=== PATIENT | female | born 1955 | race Two or more races ===

== ENCOUNTER 2024-03-05 21:32 | Inpatient (IN) | payer OTHER, SELFPAY ==
[2024-03-05 21:45] VITALS: BP 163/84; PULSE 84; RESP 22; TEMP 36.6; O2SAT 97
[2024-03-05 22:44] LABS: Glucose, Whole Blood 148 mg/dL (60-115)
[2024-03-05 23:07] VITALS: BMI 36.9
[2024-03-05] MEDS: QUEtiapine Fumarate 100 MG TABLET 300 MG PO (23:43)
[2024-03-05] MEDS: traZODone HCL 50 MG TABLET PO (23:43)
[2024-03-05] MEDS: risperiDONE 1 MG TABLET PO (23:44)
--- NOTE | 2024-03-06 01:20 | PC.ADMIT ---
[id number]- pt is hospital to hospital transfer from [facility]. on arrival pt signed a c-v document. to note, intake information is assisted by housekeeping laundry worker Leonel Varela. pt states that she lives alone in an apartment and has been afraid. she states that she hears voices that tell her that they are going to hurt her. she endorses visual hallucinations of seeing things of the past. pt states that she sought medical attention at [facility] because she was frightened. she denies si and hi. however, she talks about having recent bad thoughts and she did not know how to kill herself . pt has a disheveled appearance and affect is flat. she tends to have a blank gaze. pt is dressed in hospital paper garments. skin surfaces inspected and are intact. slight pedal and leg edema appreciated. pt has yellow metallic ring on right 4 th finger which could not be removed. please note pt has recent dx 0f covid-19 and for the past 24 hours has c/o of cough,sore throat and runny nose. resp effort is regular and unlabored. breath sounds clear to auscultation. sao2 98%. poc checked 148. hemodynamically stable. pt states hx of constipation. last bm yesterday and was small. abdomen obese and soft. pt has a regular diet and no difficulty eating or swallowing. she denies any urological issues. arabella marc coordinator of rehabilitation services provider notified of admission. pt placed on contact precautions.
[2024-03-06 08:00] VITALS: BP 135/71; PULSE 85; RESP 18; TEMP 36.3; O2SAT 97
[2024-03-06 08:16] LABS: Estimated Average Glucose 146 mg/dL; Hemoglobin A1c % 6.7 % (<6.0)
[2024-03-06 08:32] LABS: Alanine Aminotransferase 28 U/L (0-31); Albumin Level 3.7 g/dL (3.5-5.0); Alkaline Phosphatase 73 U/L (39-117); Anion Gap 10 (12-20); Aspartate Amino Transferase 23 U/L (5-31); Bilirubin Total 0.3 mg/dL (0.0-1.0); Blood Urea Nitrogen 14 mg/dL (9-16); Calcium 9.2 mg/dL (8.4-10.2); Carbon Dioxide 29 mmol/L (22-29); Chloride 108 mmol/L (96-108); Cholesterol 128 mg/dL (<200); Creatinine Clr Calc Pharmacy 67.7; Estimated Glomerular Filt Rate > 60; Glucose Fasting 123 mg/dL (60-99); HDL Cholesterol 36 mg/dL (>40); LDL Cholesterol Calculated 72 mg/dL (<100); Magnesium 1.8 mg/dL (1.6-2.6); Potassium 4.2 mmol/L (3.3-5.1); Sodium 143 mmol/L (135-145); Triglycerides 102 mg/dL (<150)
[2024-03-06 08:57] LABS: Folate 9.7 ng/mL (> or = 4.0); Vitamin B12 365 pg/mL (200-900)
--- NOTE | 2024-03-06 09:23 | P.CONHOSP_ITS ---
History of Present Illness Data of Consult Service Date: 03/06/24 Requesting physician: Segundo Fairbanks Primary Care Provider: Unknown Physician HPI Reason for consult: medical H&P 68-year-old female with history of bipolar 1, anxiety, PTSD, hypothyroidism, hyperlipidemia, GERD, [id number] type 2 diabetes, hypertension, asthma, overactive bladder, who is severely obese with BMI > 36 admitted to Psychiatry with consult placed hospitalist service for medical H and P. The patient was admitted from [facility]. While in the ED, hematology studies revealed a mild normocytic anemia with H/H 11.5/35.0%. She has CKD stage 3 with creatinine 1.1, lytes normal. Glucose 111. Ethyl alcohol level undetectable. TSH 1.82. She was found to be positive for COVID-19 on 03/05. She reports she developed intermittently productive cough with white sputum but denies any shortness a breath, wheezing, or chest pain. No fevers or chills. No congestion or sore throat. EKG showed sinus arrhythmia with rate 78, no acute ST/T-wave abnormality. She has not a smoker, denies alcohol use or illicit drug use. Review of Systems 2 Review of Systems: General: No fevers, malaise, unintentional weight loss HEENT: No blurred vision, diplopia. No sore throat, nasal congestion, rhinorrhea, sinus pain, ear pain Cardiovascular: No chest pain, palpitations, or leg edema Respiratory: +cough. No shortness of breath, wheezing GI: No abdominal pain, nausea, vomiting, diarrhea, constipation, melena, hematochezia : No dysuria, hematuria, increased urinary frequency, decreased urinary output MSK: No myalgia, back pain Neuro: No headaches, weakness, paresthesias Skin: No rashes or lesions [facility] Medical History Severe obesity Overactive bladder Asthma Hypertension GERD (gastroesophageal reflux disease) Type 2 diabetes mellitus Hypothyroidism Anxiety Bipolar 1 disorder Social History Household Members: None Housing: Apartment Do you presently have visiting nurse or other home services: Yes (family member works 24 hr/wk as [employer]) Patient Tobacco Use Status: Never used Tobacco e-Cigarette/Vaping Use: Never Used Use of substances other than those prescribed or required for medical reasons: No Have you been hit, kicked, punched, or otherwise hurt by someone within the past year? If so, by whom?: No Do you feel safe in your current relationship?: No Current Relationship Is there a partner from a previous relationship who is making you feel unsafe now?: No Are you made to feel afraid or neglected: No Advance Directives: No Advance Directives Information Provided: No Recently lost weight without trying: No How much weight loss: Not applicable Eating poorly because of decreased appetite: No Nutrition screen score: 0 Nutrition Risks: No Nutritional Risk Patient : No : No Poor oral hygiene: No Meds Allergies Allergy/AdvReac Type Severity Reaction Status Date / Time Penicillins Allergy Unknown Unknown Verified 03/05/24 22:11 Active Medications: Current Medications Acetaminophen (Acetaminophen 325 Mg Tablet) 650 mg PO Q6H PRN PRN Reason: Headache/Pain Mild Scale (1-3) Al Hydroxide/Mg Hydroxide (Magnesium Hydrox/Alum Hydrox 30 Ml Oral.Susp) 30 ml PO Q6H PRN PRN Reason: Heartburn/Nausea Hydroxyzine HCl (Hydroxyzine Hcl 25 Mg Tablet) 25 mg PO Q6H PRN PRN Reason: Anxiety Magnesium Hydroxide (Milk Of Magnesia 30 Ml Oral.Susp) 30 ml PO DAILY PRN PRN Reason: Constipation Trazodone HCl (Trazodone Hcl 50 Mg Tablet) 50 mg PO BEDTIME MRX1 PRN PRN Reason: Insomnia Last Admin: 03/05/24 23:43 Dose: 50 mg Home Medications ?Medication ?Instructions ?Recorded ?Confirmed ?Last Taken ?Type acetaminophen 650 mg 650 mg PO Q6H PRN pain 03/06/24 03/06/24 Unknown History tablet,extended release albuterol sulfate 90 mcg/actuation 2 puff inhalation QID PRN wheezing 03/06/24 03/06/24 Unknown History aerosol inhaler aspirin 325 mg tablet,delayed 325 mg PO BID 03/06/24 03/06/24 Unknown History release atorvastatin 80 mg tablet 80 mg PO DAILY 03/06/24 03/06/24 Unknown History bupropion HCl 200 mg tablet,12 hr 200 mg PO QAM 03/06/24 03/06/24 Unknown History sustained-release fluoxetine 20 mg capsule 20 mg PO DAILY 03/06/24 03/06/24 Unknown History furosemide 20 mg tablet 20 mg PO DAILY 03/06/24 03/06/24 Unknown History levothyroxine 88 mcg tablet 88 mcg PO DAILY 03/06/24 03/06/24 Unknown History lidocaine 5 % topical patch topical 1XD 03/06/24 Unknown History lisinopril 5 mg tablet 5 mg PO DAILY 03/06/24 03/06/24 Unknown History metformin 750 mg tablet,extended 1,500 mg PO DAILY 03/06/24 03/06/24 Unknown History release 24 hr mirabegron 50 mg tablet,extended 50 mg PO DAILY 03/06/24 03/06/24 Unknown History release 24 hr (Myrbetriq) pantoprazole 40 mg tablet,delayed 40 mg PO DAILY 03/06/24 03/06/24 Unknown History release polyethylene glycol 3350 17 17 g PO DAILY PRN constipation 03/06/24 03/06/24 Unknown History gram/dose oral powder quetiapine 300 mg tablet 300 mg PO BEDTIME 03/06/24 03/06/24 Unknown History risperidone 2 mg tablet 2 mg PO BEDTIME 03/06/24 03/06/24 Unknown History Physical Exam 2 Vital Signs and Narrative: Vital Signs: Last Vital Signs Temp 97.9 F 03/05/24 21:45 Pulse 84 03/05/24 21:45 Resp 22 H 03/05/24 21:45 BP 163/84 H 03/05/24 21:45 Pulse Ox 97 03/05/24 21:45 O2 Del Method Room Air 03/05/24 21:45 BMI result Body Mass Index 36.9 Constitutional - Awake and Alert, No apparent distress Eyes - PERRLA, EOMI Cardiovascular - S1S2, RRR, No edema Respiratory - Normal lung expansion, Normal respiratory effort, No respiratory distress, CTA bilaterally Gastrointestinal - NT / ND; +BS; No rebound or guarding - No CVA tenderness Extremities - no calf tenderness bilaterally, no swelling Musculoskeletal - Normal inspection, normal ROM Skin - Warm/Dry Neurological - Alert & oriented x3, CN II-XII in tact, 5/5 strength BUE and BLE Psychological - Appropriate affect Results Labs 03/06/24 07:43 Labs: Laboratory Results - last 24 hr 03/05/24 03/06/24 22:27 07:43 Anion Gap 10 L Estim Creat Clear Calc 67.7 Estimated GFR > 60 POC Glucose 148 H Fasting Glucose 123 H Estimat Average Glucose 146 Hemoglobin A1c % 6.7 H Calcium 9.2 Magnesium 1.8 Total Bilirubin 0.3 AST 23 ALT 28 Alkaline Phosphatase 73 Total Protein 6.0 L Albumin 3.7 Triglycerides 102 Cholesterol 128 LDL Cholesterol, Calc 72 HDL Cholesterol 36 L Vitamin B12 365 Folate 9.7 TSH 2.10 Assessment and Plan (1) COVID-19: Status: Acute (2) Routine medical exam: Status: Acute Plan 68-year-old female with history of bipolar 1, anxiety, PTSD, hypothyroidism, hyperlipidemia, GERD, [id number] type 2 diabetes, hypertension, asthma, overactive bladder, who is severely obese with BMI > 36 admitted to Psychiatry with consult placed hospitalist service for medical H and P. #Mood disorder -plan per psychiatry #COVID-19 -mild symptoms, lungs CTA. dx 03/05 sx onset 03/04 -adhere to hospital isolation guidelines -symptomatic management #Mild intermittent asthma -no acute exacerbation -albuterol prn # hypothyroidism -TSH 1.82, continue levothyroxine 88 mcg daily # [id number] type 2 diabetes -controlled with hemoglobin A1c 6.7% -recommend checking POC glucose daily -continue metformin # hypertension -blood pressure is controlled -continue Lasix 20 mg, lisinopril 5 mg # hyperlipidemia -continue statin # overactive bladder -continue mirabegron # GERD -continue PPI # severe obesity with BMI > 36 -weight loss efforts # mild normocytic anemia-likely chronic -H/H above transfusion threshold Thank you for allowing me to participate in this consult. Signing off at this time. Please do not hesitate to call for further questions.
--- NOTE | 2024-03-06 09:38 | HO.PSYADMNOT ---
HPI Date of Service: 03/06/24 Chief Complaint: Bipolar, anxiety, PTSD Sources of Information: patient interviewed, chart reviewed and crisis/core team assessment reviewed HPI Subjective Notes: Cohn Warning and Conditional Voluntary Narrative: Ms. Pedro is a 68 year-old woman with hx of schizoaffective disorder who was assessed by [facility] at request of her psychiatrist, Dr. Natty Marte due to paranoid delusions that devil was trying to harm her and she had instead a heart made of water, she also reported she thought she was with twins. In the ED, [facility], cbc mostly unremarkable. CMP without electrolyte abnormalities. BUN 19, Cr 1.1, creatinine clearance 51. TSH 1.82, Utox negative. she was positive for covid. On the unit, pt presents with significant delayed in response and poor attention. She reports she was concern about her heart, does not know who is trying to harm her. She denies SI/HI. She reports she hears voices but can't tell this singer songwriter what they say. She states I think I heard them today. She reports my psychiatrist told me to come here. In terms of covid symptoms, pt without SOB, afebrile. Past Psychiatric History: OP: [facility] Dr. Natty Marte Past medication trials: wellbutrin, risperidone, seroquel, prozac Medical Evaluation Reviewed: Yes [facility] Medical History Severe obesity Overactive bladder Asthma Hypertension GERD (gastroesophageal reflux disease) Type 2 diabetes mellitus Hypothyroidism Anxiety Bipolar 1 disorder Family History: unknown Social History: pt lives alone, housing stable. her children are in the area. Substance History: denies Trauma History: not disclosed Diagnostics Vital Signs (24Hr): Vital Signs - 24 hr 03/05/24 21:45 Temperature 97.9 F Pulse Rate 84 Respiratory Rate 22 H Blood Pressure 163/84 H Pulse Oximetry 97 Oxygen Delivery Method Room Air BMI result Body Mass Index 36.9 Labs 03/06/24 07:43 Labs: Laboratory Results - last 48 hr 03/05/24 03/06/24 22:27 07:43 Sodium 143 Potassium 4.2 Chloride 108 Carbon Dioxide 29 Anion Gap 10 L BUN 14 Creatinine 0.92 Estim Creat Clear Calc 67.7 Estimated GFR > 60 POC Glucose 148 H Fasting Glucose 123 H Estimat Average Glucose 146 Hemoglobin A1c % 6.7 H Calcium 9.2 Magnesium 1.8 Total Bilirubin 0.3 AST 23 ALT 28 Alkaline Phosphatase 73 Total Protein 6.0 L Albumin 3.7 Triglycerides 102 Cholesterol 128 LDL Cholesterol, Calc 72 HDL Cholesterol 36 L Vitamin B12 365 Folate 9.7 TSH 2.10 Meds/Allergies Meds Home Medications ?Medication ?Instructions ?Recorded ?Confirmed ?Type acetaminophen 650 mg 650 mg PO Q6H PRN pain 03/06/24 03/06/24 History tablet,extended release albuterol sulfate 90 mcg/actuation 2 puff inhalation QID PRN wheezing 03/06/24 03/06/24 History aerosol inhaler aspirin 325 mg tablet,delayed 325 mg PO BID 03/06/24 03/06/24 History release atorvastatin 80 mg tablet 80 mg PO DAILY 03/06/24 03/06/24 History bupropion HCl 200 mg tablet,12 hr 200 mg PO QAM 03/06/24 03/06/24 History sustained-release fluoxetine 20 mg capsule 20 mg PO DAILY 03/06/24 03/06/24 History furosemide 20 mg tablet 20 mg PO DAILY 03/06/24 03/06/24 History levothyroxine 88 mcg tablet 88 mcg PO DAILY 03/06/24 03/06/24 History lidocaine 5 % topical patch topical 1XD 03/06/24 History lisinopril 5 mg tablet 5 mg PO DAILY 03/06/24 03/06/24 History metformin 750 mg tablet,extended 1,500 mg PO DAILY 03/06/24 03/06/24 History release 24 hr mirabegron 50 mg tablet,extended 50 mg PO DAILY 03/06/24 03/06/24 History release 24 hr (Myrbetriq) pantoprazole 40 mg tablet,delayed 40 mg PO DAILY 03/06/24 03/06/24 History release polyethylene glycol 3350 17 17 g PO DAILY PRN constipation 03/06/24 03/06/24 History gram/dose oral powder quetiapine 300 mg tablet 300 mg PO BEDTIME 03/06/24 03/06/24 History risperidone 2 mg tablet 2 mg PO BEDTIME 03/06/24 03/06/24 History Allergies Allergies Allergy/AdvReac Type Severity Reaction Status Date / Time Penicillins Allergy Unknown Unknown Verified 03/05/24 22:11 Mental Status Exam Mental Status Exam Narrative: Appearance: wearing hospital gown, laying in bed, staring at ceiling, in NAD Behavior: minimally engaging due to underlying psychosis Psychomotor: some retardation noted Speech: mostly clear, delayed responses, minimally spontaneous TP: some derailment TC: feeling tired Mood: okay' Affect: constricted, mask-like facial expression SI: denies HI: denies VH/AH: internally preoccupied Delusions: paranoid delusions Insight/judgment: impaired x 2. memory/cog: alert, oriented x 3. not formally tested. Assessment & Plan Assessment & Plan (1) Schizoaffective disorder: Status: Acute Code(s): F25.9 - Schizoaffective disorder, unspecified Plan Ms. Pedro is a 68 year-old woman with hx of schizoaffective disorder who was assessed by [facility] at request of her outpatient psychiatrist, Dr. Natty Marte due to pt presenting as increasingly more paranoid and disorganized. She is covid positive. currently on isolation with no significant symptoms- no SOB, o2sat>96 on RA, afebrile. We discussed risks, benefits and alternative treatment options, will hold on antidepressants as will worsen psychosis, increase risperidone to 1mg po daily and 2mg po qhs. will add some ativan for catatonic-like symptoms including blank stare, mutism (or minimal spontaneous speech with significant delayed in responses). PLAN 1. admit to s1, cv, 15 minutes checks 2. increase risperidone 1mg po daily and 2mg po qhs 3. obtain collateral information 4. aftercare planning. Patient educated on: diagnosis and medication risk/benefits Reason for continued inpatient stay Substantial Risk for: inability to function Statement Statement: I have reviewed the history and physical and performed a pertinent examination on my patient. No changes have occurred unless specified. If the History and Physical was not performed prior to admission, the Hospitalist's service will be consulted for completing the admission physical. Time Spent With Patient Time: Total time managing care of this patient today ____ minutes.
[2024-03-06 10:18] VITALS: BP 135/71
[2024-03-06] MEDS: Omeprazole 20 MG CAPSULE.DR PO (10:18)
[2024-03-06] MEDS: FLUoxetine HCl 20 MG CAPSULE PO (10:18)
[2024-03-06] MEDS: Furosemide 20 MG TABLET PO (10:18)
[2024-03-06] MEDS: Levothyroxine Sodium 88 MCG TABLET PO (10:19)
[2024-03-06] MEDS: Atorvastatin Calcium 80 MG TABLET PO (10:19)
[2024-03-06 10:20] VITALS: BP 135/71
[2024-03-06] MEDS: lisinopriL 5 MG TABLET PO (10:20)
[2024-03-06] MEDS: Aspirin Enteric Coated 325 MG TABLET.DR PO ×2 (11:35→20:47)
[2024-03-06] MEDS: risperiDONE 1 MG TABLET PO (14:19)
[2024-03-06] MEDS: LORazepam 1 MG TABLET PO (14:19)
[2024-03-06 20:00] VITALS: BP 114/68; PULSE 76; RESP 16; TEMP 36.6; O2SAT 98
[2024-03-06] MEDS: risperiDONE 2 MG TABLET PO (20:46)
[2024-03-06] MEDS: Mirabegron 50 MG TAB.ER.24H PO (20:46)
[2024-03-06] MEDS: QUEtiapine Fumarate 300 MG TABLET PO (20:47)
[2024-03-06] MEDS: hydrOXYzine HCL 25 MG TABLET PO (20:47)
[2024-03-06] MEDS: traZODone HCL 50 MG TABLET PO (20:48)
[2024-03-07] MEDS: Levothyroxine Sodium 88 MCG TABLET PO (06:10)
[2024-03-07] MEDS: Omeprazole 20 MG CAPSULE.DR PO (06:10)
[2024-03-07 08:00] VITALS: BP 152/91; PULSE 93; RESP 18; TEMP 36.5; O2SAT 96
[2024-03-07] MEDS: guaiFENesin 200 MG/10 ML 10 ML LIQUID PO (08:29)
[2024-03-07] MEDS: risperiDONE 1 MG TABLET PO (08:30)
[2024-03-07] MEDS: Aspirin Enteric Coated 325 MG TABLET.DR PO ×2 (08:30→21:39)
[2024-03-07] MEDS: Furosemide 20 MG TABLET PO (08:30)
[2024-03-07] MEDS: lisinopriL 5 MG TABLET PO (08:30)
[2024-03-07] MEDS: Atorvastatin Calcium 80 MG TABLET PO (08:30)
--- NOTE | 2024-03-07 14:40 | P.PNPSI_ITS ---
Subjective Subjective Date of Service: 03/07/24 Reason For Visit: Bipolar, anxiety, PTSD Subjective Notes: Conditional Voluntary Interim History: Pt slept through the night. She did seem to have slightly less delay in response but still poor attention due to being internally preoccupied. She reports hearing voices, but states she does not remember what they say. She does report that she was feeling unsafe at home. She states she is not sure of she is . minimally verbal. denies sob, afebrile. She does report roof of mouth hurts- this typewriter aligner check no redness or swelling, but pt states she may have had hot food. No SI/HI. Review of Systems Review of Systems General: No fevers, malaise, unintentional weight loss HEENT: No blurred vision, diplopia. No sore throat, nasal congestion, rhinorrhea, sinus pain, ear pain Cardiovascular: No chest pain, palpitations, or leg edema Respiratory: +cough. No shortness of breath, wheezing GI: No abdominal pain, nausea, vomiting, diarrhea, constipation, melena, hematochezia : No dysuria, hematuria, increased urinary frequency, decreased urinary output MSK: No myalgia, back pain Neuro: No headaches, weakness, paresthesias Skin: No rashes or lesions Mental Status Exam Mental Status Exam Narrative: Appearance: wearing hospital gown, laying in bed, staring at ceiling, in NAD Behavior: minimally engaging due to underlying psychosis Psychomotor: some retardation noted Speech: mostly clear, delayed responses, minimally spontaneous TP: some derailment TC: feeling tired Mood: okay' Affect: constricted, mask-like facial expression SI: denies HI: denies VH/AH: internally preoccupied Delusions: paranoid delusions Insight/judgment: impaired x 2. memory/cog: alert, oriented x 3. not formally tested. Diagnostics Vital Signs (24Hr): Vital Signs - 24 hr 03/06/24 20:00 03/07/24 08:00 Temperature 98 F 97.7 F Pulse Rate 76 93 Respiratory Rate 16 18 Blood Pressure 114/68 152/91 H Pulse Oximetry 98 96 Oxygen Delivery Method Room Air Room Air BMI result Body Mass Index 36.9 Labs 03/06/24 07:43 Labs: Laboratory Results - last 48 hr 03/05/24 03/06/24 22:27 07:43 Sodium 143 Potassium 4.2 Chloride 108 Carbon Dioxide 29 Anion Gap 10 L BUN 14 Creatinine 0.92 Estim Creat Clear Calc 67.7 Estimated GFR > 60 POC Glucose 148 H Fasting Glucose 123 H Estimat Average Glucose 146 Hemoglobin A1c % 6.7 H Calcium 9.2 Magnesium 1.8 Total Bilirubin 0.3 AST 23 ALT 28 Alkaline Phosphatase 73 Total Protein 6.0 L Albumin 3.7 Triglycerides 102 Cholesterol 128 LDL Cholesterol, Calc 72 HDL Cholesterol 36 L Vitamin B12 365 Folate 9.7 TSH 2.10 Medications Medications Current Medications Acetaminophen (Acetaminophen 325 Mg Tablet) 650 mg PO Q6H PRN PRN Reason: Headache/Pain Mild Scale (1-3) Al Hydroxide/Mg Hydroxide (Magnesium Hydrox/Alum Hydrox 30 Ml Oral.Susp) 30 ml PO Q6H PRN PRN Reason: Heartburn/Nausea Albuterol Sulfate (Albuterol Sulfate 90 Mcg 8 Gm Inhaler) 2 puff INHALE QID PRN PRN Reason: wheezing Aspirin (Aspirin Enteric Coated 325 Mg Tablet.) 325 mg PO BID [facility] Last Admin: 03/07/24 08:30 Dose: 325 mg Atorvastatin Calcium (Atorvastatin Calcium 80 Mg Tablet) 80 mg PO DAILY [facility] Last Admin: 03/07/24 08:30 Dose: 80 mg Furosemide (Furosemide 20 Mg Tablet) 20 mg PO DAILY [facility]; Protocol Last Admin: 03/07/24 08:30 Dose: 20 mg Guaifenesin (Guaifenesin 200 Mg/10 Ml 10 Ml Liquid) 10 ml PO Q4H PRN PRN Reason: Cough Last Admin: 03/07/24 08:29 Dose: 10 ml Hydroxyzine HCl (Hydroxyzine Hcl 25 Mg Tablet) 25 mg PO Q6H PRN PRN Reason: Anxiety Last Admin: 03/06/24 20:47 Dose: 25 mg Levothyroxine Sodium (Levothyroxine Sodium 88 Mcg Tablet) 88 mcg PO DAILY@0600 [facility] Last Admin: 03/07/24 06:10 Dose: 88 mcg Lisinopril (Lisinopril 5 Mg Tablet) 5 mg PO DAILY [facility]; Protocol Last Admin: 03/07/24 08:30 Dose: 5 mg Magnesium Hydroxide (Milk Of Magnesia 30 Ml Oral.Susp) 30 ml PO DAILY PRN PRN Reason: Constipation Mirabegron (Mirabegron 50 Mg Tab.Er.24h) 50 mg PO BEDTIME [facility] Last Admin: 03/06/24 20:46 Dose: 50 mg Omeprazole (Omeprazole 20 Mg Capsule.Dr) 20 mg PO DAILY@0630 [facility] Last Admin: 03/07/24 06:10 Dose: 20 mg Quetiapine Fumarate (Quetiapine Fumarate 200 Mg Tablet) 200 mg PO BEDTIME DANIEL Risperidone (Risperidone 2 Mg Tablet) 2 mg PO BEDTIME [facility] Last Admin: 03/06/24 20:46 Dose: 2 mg Risperidone (Risperidone 1 Mg Tablet) 1 mg PO DAILY [facility] Last Admin: 03/07/24 08:30 Dose: 1 mg Trazodone HCl (Trazodone Hcl 50 Mg Tablet) 50 mg PO BEDTIME MRX1 PRN PRN Reason: Insomnia Last Admin: 03/06/24 20:48 Dose: 50 mg Allergies Allergies Allergy/AdvReac Type Severity Reaction Status Date / Time Penicillins Allergy Unknown Unknown Verified 03/05/24 22:11 Assessment & Plan Assessment & Plan (1) Schizoaffective disorder: Status: Acute Code(s): F25.9 - Schizoaffective disorder, unspecified Plan Ms. Pedro is a 68 year-old woman with hx of schizoaffective disorder who was assessed by [facility] at request of her outpatient psychiatrist, Dr. Natty Marte due to pt presenting as increasingly more paranoid and disorganized. She is covid positive. currently on isolation with no significant symptoms- no SOB, o2sat>96 on RA, afebrile. We discussed risks, benefits and alternative treatment options, will hold on antidepressants as will worsen psychosis, increase risperidone to 1mg po daily and 2mg po qhs. will add some ativan for catatonic- like symptoms including blank stare, mutism (or minimal spontaneous speech with significant delayed in responses). PLAN 1. admit to s1, cv, 15 minutes checks 2. increase risperidone 1mg po daily and 2mg po qhs 3. obtain collateral information 4. aftercare planning. Reason for continued inpatient stay Substantial Risk for: inability to function Time Spent With Patient Time: Total time managing care of this patient today ____ minutes.
[2024-03-07] MEDS: LORazepam 0.5 MG TABLET PO ×2 (14:50→21:39)
[2024-03-07 20:00] VITALS: BP 134/69; PULSE 72; RESP 16; TEMP 36.1; O2SAT 97
[2024-03-07] MEDS: QUEtiapine Fumarate 200 MG TABLET PO (21:39)
[2024-03-07] MEDS: risperiDONE 2 MG TABLET PO (21:39)
[2024-03-07] MEDS: Mirabegron 50 MG TAB.ER.24H PO (21:39)
[2024-03-07] MEDS: traZODone HCL 50 MG TABLET PO (21:39)
[2024-03-08] MEDS: Omeprazole 20 MG CAPSULE.DR PO (06:00)
[2024-03-08] MEDS: Levothyroxine Sodium 88 MCG TABLET PO (06:00)
[2024-03-08 08:00] VITALS: BP 114/61; PULSE 70; RESP 16; TEMP 36.1; O2SAT 95
[2024-03-08 09:35] VITALS: BP 114/61
[2024-03-08] MEDS: risperiDONE 1 MG TABLET PO (09:35)
[2024-03-08] MEDS: Aspirin Enteric Coated 325 MG TABLET.DR PO ×2 (09:35→21:22)
[2024-03-08] MEDS: LORazepam 0.5 MG TABLET PO ×3 (09:35→21:22)
[2024-03-08] MEDS: Furosemide 20 MG TABLET PO (09:35)
[2024-03-08] MEDS: Atorvastatin Calcium 80 MG TABLET PO (09:36)
[2024-03-08 09:47] VITALS: BP 114/61
[2024-03-08] MEDS: lisinopriL 5 MG TABLET PO (09:47)
[2024-03-08] MEDS: Acetaminophen 325 MG TABLET 650 MG PO (09:48)
--- NOTE | 2024-03-08 14:21 | P.PNPSI_ITS ---
Subjective Subjective Date of Service: 03/08/24 Reason For Visit: Bipolar, anxiety, PTSD Subjective Notes: Conditional Voluntary Interim History: The nursing staff reported the patient had been sad, depressed guarded. She is with COVID 19 restrictions. It was evident the patient has thought blocking and delayed responses. On interview, the patient reported sporadic auditory hallucinations and over the weekend Risperdal was increased. I contact her outpatient psychiatrist and apparently the patient was at a higher dose of Risperdal 2 mg p.o. b.i.d. and Seroquel 300 p.o. q.h.s.. We will continue the titration. Mental Status Exam Mental Status Exam Patient Appearance: Appropriate Patient Orientation: Person and Situation Level of Consciousness: Awake Patient Behavior: Guarded and Passive Mood Description: Withdrawn Affect Description: Blunted Patient Cognition Impaired: Yes Ability to Follow Directions: Good Speech Pattern: Impoverished Hallucinations: Auditory Delusions: Paranoid Ideation and Ideas of Reference Thought Process: Distracted and Slowed Thinking Thought Content: positive for [place], positive for [place] and positive for Thought Blocking Judgement: Fair Diagnostics Vital Signs (24Hr): Vital Signs - 24 hr 03/07/24 20:00 03/08/24 08:00 03/08/24 09:35 Temperature 96.9 F 97.0 F Pulse Rate 72 70 Respiratory Rate 16 16 Blood Pressure 134/69 114/61 114/61 Pulse Oximetry 97 95 Oxygen Delivery Method Room Air Room Air 03/08/24 09:47 Temperature Pulse Rate Respiratory Rate Blood Pressure 114/61 Pulse Oximetry Oxygen Delivery Method BMI result Body Mass Index 36.9 Labs 03/06/24 07:43 Medications Medications Current Medications Acetaminophen (Acetaminophen 325 Mg Tablet) 650 mg PO Q6H PRN PRN Reason: Headache/Pain Mild Scale (1-3) Last Admin: 03/08/24 09:48 Dose: 650 mg Al Hydroxide/Mg Hydroxide (Magnesium Hydrox/Alum Hydrox 30 Ml Oral.Susp) 30 ml PO Q6H PRN PRN Reason: Heartburn/Nausea Albuterol Sulfate (Albuterol Sulfate 90 Mcg 8 Gm Inhaler) 2 puff INHALE QID PRN PRN Reason: wheezing Aspirin (Aspirin Enteric Coated 325 Mg Tablet.) 325 mg PO BID [facility] Last Admin: 03/08/24 09:35 Dose: 325 mg Atorvastatin Calcium (Atorvastatin Calcium 80 Mg Tablet) 80 mg PO DAILY [facility] Last Admin: 03/08/24 09:36 Dose: 80 mg Furosemide (Furosemide 20 Mg Tablet) 20 mg PO DAILY [facility]; Protocol Last Admin: 03/08/24 09:35 Dose: 20 mg Guaifenesin (Guaifenesin 200 Mg/10 Ml 10 Ml Liquid) 10 ml PO Q4H PRN PRN Reason: Cough Last Admin: 03/07/24 08:29 Dose: 10 ml Hydroxyzine HCl (Hydroxyzine Hcl 25 Mg Tablet) 25 mg PO Q6H PRN PRN Reason: Anxiety Last Admin: 03/06/24 20:47 Dose: 25 mg Levothyroxine Sodium (Levothyroxine Sodium 88 Mcg Tablet) 88 mcg PO DAILY@0600 [facility] Last Admin: 03/08/24 06:00 Dose: 88 mcg Lisinopril (Lisinopril 5 Mg Tablet) 5 mg PO DAILY [facility]; Protocol Last Admin: 03/08/24 09:47 Dose: 5 mg Lorazepam (Lorazepam 0.5 Mg Tablet) 0.5 mg PO TID [facility] Last Admin: 03/08/24 09:35 Dose: 0.5 mg Magnesium Hydroxide (Milk Of Magnesia 30 Ml Oral.Susp) 30 ml PO DAILY PRN PRN Reason: Constipation Mirabegron (Mirabegron 50 Mg Tab.Er.24h) 50 mg PO BEDTIME [facility] Last Admin: 03/07/24 21:39 Dose: 50 mg Omeprazole (Omeprazole 20 Mg Capsule.Dr) 20 mg PO DAILY@0630 [facility] Last Admin: 03/08/24 06:00 Dose: 20 mg Quetiapine Fumarate (Quetiapine Fumarate 200 Mg Tablet) 200 mg PO BEDTIME [facility] Last Admin: 03/07/24 21:39 Dose: 200 mg Risperidone (Risperidone 2 Mg Tablet) 2 mg PO BEDTIME [facility] Last Admin: 03/07/24 21:39 Dose: 2 mg Risperidone (Risperidone 2 Mg Tablet) 2 mg PO DAILY [facility] Trazodone HCl (Trazodone Hcl 50 Mg Tablet) 50 mg PO BEDTIME MRX1 PRN PRN Reason: Insomnia Last Admin: 03/07/24 21:39 Dose: 50 mg Allergies Allergies Allergy/AdvReac Type Severity Reaction Status Date / Time Penicillins Allergy Unknown Unknown Verified 03/05/24 22:11 Assessment & Plan Assessment & Plan (1) Schizoaffective disorder: Status: Acute Code(s): F25.9 - Schizoaffective disorder, unspecified Plan Ms. Pedro is a 68 year-old woman with hx of schizoaffective disorder who was assessed by [facility] at request of her outpatient psychiatrist, Dr. Natty Marte due to pt presenting as increasingly more paranoid and disorganized. She is covid positive. currently on isolation with no significant symptoms- no SOB, o2sat>96 on RA, afebrile. We discussed risks, benefits and alternative treatment options, will hold on antidepressants as will worsen psychosis, increase risperidone to 1mg po daily and 2mg po qhs. will add some ativan for catatonic- like symptoms including blank stare, mutism (or minimal spontaneous speech with significant delayed in responses). PLAN 1. admit to s1, cv, 15 minutes checks 2. increase risperidone 1mg po daily and 2mg po qhs. Risperdal was increased to 2 mg p.o. b.i.d. on March 09. 3. obtain collateral information 4. aftercare planning. 5. Seroquel will increase up to 300 mg p.o. q.h.s. on March 10. Reason for continued inpatient stay Substantial Risk for: inability to function, rapid decompensation and med/psych decompensation Time Spent With Patient Time: Total time managing care of this patient today __20__ minutes.
[2024-03-08 20:00] VITALS: BP 122/68; PULSE 68; RESP 18; TEMP 36.1; O2SAT 98
[2024-03-08] MEDS: traZODone HCL 50 MG TABLET PO (21:22)
[2024-03-08] MEDS: Mirabegron 50 MG TAB.ER.24H PO (21:22)
[2024-03-08] MEDS: QUEtiapine Fumarate 200 MG TABLET PO (21:22)
[2024-03-08] MEDS: risperiDONE 2 MG TABLET PO (21:22)
[2024-03-09] MEDS: Omeprazole 20 MG CAPSULE.DR PO (06:29)
[2024-03-09] MEDS: Levothyroxine Sodium 88 MCG TABLET PO (06:29)
[2024-03-09 08:00] VITALS: BP 124/70; PULSE 62; RESP 18; TEMP 36.3; O2SAT 96
[2024-03-09] MEDS: risperiDONE 2 MG TABLET PO ×2 (08:06→21:20)
[2024-03-09 08:07] VITALS: BP 124/70
[2024-03-09] MEDS: Atorvastatin Calcium 80 MG TABLET PO (08:07)
[2024-03-09] MEDS: lisinopriL 5 MG TABLET PO (08:07)
[2024-03-09] MEDS: Furosemide 20 MG TABLET PO (08:07)
[2024-03-09] MEDS: LORazepam 0.5 MG TABLET PO ×3 (08:07→21:27)
[2024-03-09] MEDS: Aspirin Enteric Coated 325 MG TABLET.DR PO ×2 (08:08→21:28)
[2024-03-09] MEDS: Acetaminophen 325 MG TABLET 650 MG PO (12:32)
--- NOTE | 2024-03-09 16:40 | P.PNPSI_ITS ---
Subjective Subjective Date of Service: 03/09/24 Reason For Visit: Bipolar, anxiety, PTSD Subjective Notes: Conditional Voluntary Interim History: The nursing staff reported the patient has no cough, no fever no respiratory symptoms. Her vital signs are stable. The patient had been 100% compliant with medications. The social media editor reported that she had been delusional and she is going to try to contact collateral. On interview the patient denies new symptoms cooperative and pleasant but internally preoccupied looks paranoid. We are increasing Seroquel up to 300 mg p.o. q.h.s. Mental Status Exam Mental Status Exam Patient Appearance: Appropriate Patient Orientation: Person and Situation Level of Consciousness: Awake and Appropriate Patient Behavior: Guarded and Passive Mood Description: Withdrawn Affect Description: Constricted Patient Cognition Impaired: Yes Ability to Follow Directions: Good Speech Pattern: Clear Hallucinations: None Delusions: Paranoid Ideation and Ideas of Reference Thought Process: Distracted and Slowed Thinking Thought Content: positive for [place] and positive for Poverty of Content Judgement: Fair Diagnostics Vital Signs (24Hr): Vital Signs - 24 hr 03/08/24 20:00 03/09/24 08:00 03/09/24 08:07 Temperature 97 F 97.4 F Pulse Rate 68 62 Respiratory Rate 18 18 Blood Pressure 122/68 124/70 124/70 Pulse Oximetry 98 96 Oxygen Delivery Method Room Air Room Air 03/09/24 08:07 Temperature Pulse Rate Respiratory Rate Blood Pressure 124/70 Pulse Oximetry Oxygen Delivery Method BMI result Body Mass Index 36.9 Labs 03/06/24 07:43 Medications Medications Current Medications Acetaminophen (Acetaminophen 325 Mg Tablet) 650 mg PO Q6H PRN PRN Reason: Headache/Pain Mild Scale (1-3) Last Admin: 03/09/24 12:32 Dose: 650 mg Al Hydroxide/Mg Hydroxide (Magnesium Hydrox/Alum Hydrox 30 Ml Oral.Susp) 30 ml PO Q6H PRN PRN Reason: Heartburn/Nausea Albuterol Sulfate (Albuterol Sulfate 90 Mcg 8 Gm Inhaler) 2 puff INHALE QID PRN PRN Reason: wheezing Aspirin (Aspirin Enteric Coated 325 Mg Tablet.) 325 mg PO BID [facility] Last Admin: 03/09/24 08:08 Dose: 325 mg Atorvastatin Calcium (Atorvastatin Calcium 80 Mg Tablet) 80 mg PO DAILY [facility] Last Admin: 03/09/24 08:07 Dose: 80 mg Furosemide (Furosemide 20 Mg Tablet) 20 mg PO DAILY [facility]; Protocol Last Admin: 03/09/24 08:07 Dose: 20 mg Guaifenesin (Guaifenesin 200 Mg/10 Ml 10 Ml Liquid) 10 ml PO Q4H PRN PRN Reason: Cough Last Admin: 03/07/24 08:29 Dose: 10 ml Hydroxyzine HCl (Hydroxyzine Hcl 25 Mg Tablet) 25 mg PO Q6H PRN PRN Reason: Anxiety Last Admin: 03/06/24 20:47 Dose: 25 mg Levothyroxine Sodium (Levothyroxine Sodium 88 Mcg Tablet) 88 mcg PO DAILY@0600 [facility] Last Admin: 03/09/24 06:29 Dose: 88 mcg Lisinopril (Lisinopril 5 Mg Tablet) 5 mg PO DAILY [facility]; Protocol Last Admin: 03/09/24 08:07 Dose: 5 mg Lorazepam (Lorazepam 0.5 Mg Tablet) 0.5 mg PO TID [facility] Last Admin: 03/09/24 15:14 Dose: 0.5 mg Magnesium Hydroxide (Milk Of Magnesia 30 Ml Oral.Susp) 30 ml PO DAILY PRN PRN Reason: Constipation Mirabegron (Mirabegron 50 Mg Tab.Er.24h) 50 mg PO BEDTIME [facility] Last Admin: 03/08/24 21:22 Dose: 50 mg Omeprazole (Omeprazole 20 Mg Capsule.Dr) 20 mg PO DAILY@0630 [facility] Last Admin: 03/09/24 06:29 Dose: 20 mg Quetiapine Fumarate (Quetiapine Fumarate 300 Mg Tablet) 300 mg PO BEDTIME [facility] Risperidone (Risperidone 2 Mg Tablet) 2 mg PO BEDTIME [facility] Last Admin: 03/08/24 21:22 Dose: 2 mg Risperidone (Risperidone 2 Mg Tablet) 2 mg PO DAILY [facility] Last Admin: 03/09/24 08:06 Dose: 2 mg Trazodone HCl (Trazodone Hcl 50 Mg Tablet) 50 mg PO BEDTIME MRX1 PRN PRN Reason: Insomnia Last Admin: 03/08/24 21:22 Dose: 50 mg Allergies Allergies Allergy/AdvReac Type Severity Reaction Status Date / Time Penicillins Allergy Unknown Unknown Verified 03/05/24 22:11 Assessment & Plan Assessment & Plan (1) Schizoaffective disorder: Status: Acute Code(s): F25.9 - Schizoaffective disorder, unspecified Plan Ms. Pedro is a 68 year-old woman with hx of schizoaffective disorder who was assessed by [facility] [employer] [facility] [facility] at request of her outpatient psychiatrist, Dr. Natty Marte due to pt presenting as increasingly more paranoid and disorganized. She is covid positive. currently on isolation with no significant symptoms- no SOB, o2sat>96 on RA, afebrile. We discussed risks, benefits and alternative treatment options, will hold on antidepressants as will worsen psychosis, increase risperidone to 1mg po daily and 2mg po qhs. will add some ativan for catatonic- like symptoms including blank stare, mutism (or minimal spontaneous speech with significant delayed in responses). PLAN 1. admit to s1, cv, 15 minutes checks 2. increase risperidone 1mg po daily and 2mg po qhs. Risperdal was increased to 2 mg p.o. b.i.d. on March 09. 3. obtain collateral information 4. aftercare planning. 5. Seroquel will increase up to 300 mg p.o. q.h.s. on March 10. Reason for continued inpatient stay Substantial Risk for: inability to function, rapid decompensation and med/psych decompensation Time Spent With Patient Time: Total time managing care of this patient today __20__ minutes.
[2024-03-09 20:00] VITALS: BP 106/62; PULSE 73; RESP 16; TEMP 36; O2SAT 94
[2024-03-09] MEDS: Mirabegron 50 MG TAB.ER.24H PO (21:26)
[2024-03-09] MEDS: QUEtiapine Fumarate 300 MG TABLET PO (21:27)
[2024-03-10] MEDS: Levothyroxine Sodium 88 MCG TABLET PO (05:44)
[2024-03-10] MEDS: Omeprazole 20 MG CAPSULE.DR PO (05:44)
[2024-03-10 08:00] VITALS: BP 123/78; PULSE 74; RESP 18; TEMP 36.4; O2SAT 94
[2024-03-10 09:04] VITALS: BP 123/78
[2024-03-10] MEDS: lisinopriL 5 MG TABLET PO (09:04)
[2024-03-10] MEDS: Atorvastatin Calcium 80 MG TABLET PO (09:04)
[2024-03-10] MEDS: LORazepam 0.5 MG TABLET PO ×3 (09:04→21:05)
[2024-03-10] MEDS: Furosemide 20 MG TABLET PO (09:04)
[2024-03-10] MEDS: Aspirin Enteric Coated 325 MG TABLET.DR PO ×2 (09:04→21:06)
[2024-03-10] MEDS: risperiDONE 2 MG TABLET PO ×2 (09:05→21:05)
[2024-03-10 09:34] LABS: IDNOW Serial# 08D9AD1C
[2024-03-10 09:35] LABS: COVID-19 Test Positive (Negative)
--- NOTE | 2024-03-10 10:29 | HO.PSYCHPN ---
Subjective Subjective Date of Service: 03/10/24 Reason For Visit: Bipolar, anxiety, PTSD Subjective Notes: Conditional Voluntary Interim History: The nursing staff reported the patient remains on COVID transitions, we did a test today and she still scored positive. Even though the nursing staff reported the patient does not have any symptoms no rhinorrhea, fever or changes in her mental status. The patient had been fully compliant with symptoms. On interview the patient denies new symptoms she looks internally preoccupied we have just increased the Seroquel up to 300 mg p.o. q.h.s. yesterday and we put her back on Risperdal 2 mg p.o. b.i.d. as per Dr. Marte, her outpatient psychiatrist.. Mental Status Exam Mental Status Exam Patient Appearance: Appropriate Patient Orientation: Person and Situation Level of Consciousness: Awake and Appropriate Patient Behavior: Guarded and Passive Mood Description: Withdrawn Affect Description: Blunted Patient Cognition Impaired: Yes Ability to Follow Directions: Fair Speech Pattern: Clear Hallucinations: Auditory Delusions: Paranoid Ideation and Ideas of Reference Thought Process: Distracted and Slowed Thinking Thought Content: positive for [place], positive for [place] and positive for Thought Blocking Judgement: Poor Diagnostics Vital Signs (24Hr): Vital Signs - 24 hr 03/09/24 20:00 03/10/24 08:00 03/10/24 09:04 Temperature 96.8 F 97.5 F Pulse Rate 73 74 Respiratory Rate 16 18 Blood Pressure 106/62 123/78 123/78 Pulse Oximetry 94 94 Oxygen Delivery Method Room Air Room Air BMI result Body Mass Index 36.9 Labs 03/06/24 07:43 Labs: Laboratory Results - last 48 hr 03/10/24 09:02 COVID-19 ([facility]) Positive A COVID-19 Clin Com See Note Medications Medications Current Medications Acetaminophen (Acetaminophen 325 Mg Tablet) 650 mg PO Q6H PRN PRN Reason: Headache/Pain Mild Scale (1-3) Last Admin: 03/09/24 12:32 Dose: 650 mg Al Hydroxide/Mg Hydroxide (Magnesium Hydrox/Alum Hydrox 30 Ml Oral.Susp) 30 ml PO Q6H PRN PRN Reason: Heartburn/Nausea Albuterol Sulfate (Albuterol Sulfate 90 Mcg 8 Gm Inhaler) 2 puff INHALE QID PRN PRN Reason: wheezing Aspirin (Aspirin Enteric Coated 325 Mg Tablet.Dr) 325 mg PO BID [facility] Last Admin: 03/10/24 09:04 Dose: 325 mg Atorvastatin Calcium (Atorvastatin Calcium 80 Mg Tablet) 80 mg PO DAILY [facility] Last Admin: 03/10/24 09:04 Dose: 80 mg Furosemide (Furosemide 20 Mg Tablet) 20 mg PO DAILY [facility]; Protocol Last Admin: 03/10/24 09:04 Dose: 20 mg Guaifenesin (Guaifenesin 200 Mg/10 Ml 10 Ml Liquid) 10 ml PO Q4H PRN PRN Reason: Cough Last Admin: 03/07/24 08:29 Dose: 10 ml Hydroxyzine HCl (Hydroxyzine Hcl 25 Mg Tablet) 25 mg PO Q6H PRN PRN Reason: Anxiety Last Admin: 03/06/24 20:47 Dose: 25 mg Levothyroxine Sodium (Levothyroxine Sodium 88 Mcg Tablet) 88 mcg PO DAILY@0600 [facility] Last Admin: 03/10/24 05:44 Dose: 88 mcg Lisinopril (Lisinopril 5 Mg Tablet) 5 mg PO DAILY [facility]; Protocol Last Admin: 03/10/24 09:04 Dose: 5 mg Lorazepam (Lorazepam 0.5 Mg Tablet) 0.5 mg PO TID [facility] Last Admin: 03/10/24 09:04 Dose: 0.5 mg Magnesium Hydroxide (Milk Of Magnesia 30 Ml Oral.Susp) 30 ml PO DAILY PRN PRN Reason: Constipation Mirabegron (Mirabegron 50 Mg Tab.Er.24h) 50 mg PO BEDTIME [facility] Last Admin: 03/09/24 21:26 Dose: 50 mg Omeprazole (Omeprazole 20 Mg Capsule.) 20 mg PO DAILY@0630 [facility] Last Admin: 03/10/24 05:44 Dose: 20 mg Quetiapine Fumarate (Quetiapine Fumarate 300 Mg Tablet) 300 mg PO BEDTIME [facility] Last Admin: 03/09/24 21:27 Dose: 300 mg Risperidone (Risperidone 2 Mg Tablet) 2 mg PO BEDTIME [facility] Last Admin: 03/09/24 21:20 Dose: 2 mg Risperidone (Risperidone 2 Mg Tablet) 2 mg PO DAILY [facility] Last Admin: 03/10/24 09:05 Dose: 2 mg Trazodone HCl (Trazodone Hcl 50 Mg Tablet) 50 mg PO BEDTIME MRX1 PRN PRN Reason: Insomnia Last Admin: 03/08/24 21:22 Dose: 50 mg Allergies Allergies Allergy/AdvReac Type Severity Reaction Status Date / Time Penicillins Allergy Unknown Unknown Verified 03/05/24 22:11 Assessment & Plan Assessment & Plan (1) Schizoaffective disorder: Status: Acute Code(s): F25.9 - Schizoaffective disorder, unspecified Plan Ms. Pedro is a 68 year-old woman with hx of schizoaffective disorder who was assessed by [facility] at request of her outpatient psychiatrist, Dr. Natty Marte due to pt presenting as increasingly more paranoid and disorganized. She is covid positive. currently on isolation with no significant symptoms- no SOB, o2sat>96 on RA, afebrile. We discussed risks, benefits and alternative treatment options, will hold on antidepressants as will worsen psychosis, increase risperidone to 1mg po daily and 2mg po qhs. will add some ativan for catatonic-like symptoms including blank stare, mutism (or minimal spontaneous speech with significant delayed in responses). PLAN 1. admit to s1, cv, 15 minutes checks 2. increase risperidone 1mg po daily and 2mg po qhs. Risperdal was increased to 2 mg p.o. b.i.d. on March 09. 3. obtain collateral information 4. aftercare planning. 5. Seroquel will increase up to 300 mg p.o. q.h.s. on March 10. Reason for continued inpatient stay Substantial Risk for: inability to function, rapid decompensation and med/psych decompensation Time Spent With Patient Time: Total time managing care of this patient today __20__ minutes.
[2024-03-10 20:00] VITALS: BP 128/78; PULSE 77; RESP 16; TEMP 35.7; O2SAT 96
[2024-03-10] MEDS: QUEtiapine Fumarate 300 MG TABLET PO (21:05)
[2024-03-10] MEDS: Mirabegron 50 MG TAB.ER.24H PO (21:05)
[2024-03-11] MEDS: Levothyroxine Sodium 88 MCG TABLET PO (05:45)
[2024-03-11] MEDS: Omeprazole 20 MG CAPSULE.DR PO (05:45)
[2024-03-11 07:00] VITALS: BMI 37.9
[2024-03-11 08:25] VITALS: BP 122/60; PULSE 78; RESP 18; TEMP 36.6; O2SAT 95
[2024-03-11 08:32] VITALS: BP 122/60
[2024-03-11] MEDS: LORazepam 0.5 MG TABLET PO ×3 (08:32→20:58)
[2024-03-11] MEDS: Furosemide 20 MG TABLET PO (08:32)
[2024-03-11] MEDS: Atorvastatin Calcium 80 MG TABLET PO (08:32)
[2024-03-11] MEDS: risperiDONE 2 MG TABLET PO ×2 (08:32→20:58)
[2024-03-11] MEDS: Aspirin Enteric Coated 325 MG TABLET.DR PO ×2 (08:32→20:57)
[2024-03-11 08:33] VITALS: BP 122/60
[2024-03-11] MEDS: lisinopriL 5 MG TABLET PO (08:33)
--- NOTE | 2024-03-11 14:01 | HO.PSYCHPN ---
Subjective Subjective Date of Service: 03/11/24 Reason For Visit: Bipolar, anxiety, PTSD Subjective Notes: Conditional Voluntary Interim History: The nursing staff reported the patient had been flat, with COVID-19 restrictions. She denies auditory hallucinations but she is extremely guarded. She slept 8 hours. The social problems specialist reported that she contact her son and reported that in September she moved to [place] and since then probably she was not compliant with medications. Admitted and discharged on December and she came back after 3 days of being discharged from the hospital. On interview the patient remains internally preoccupied, denies active hallucinations but she looks responding to internal stimuli. Mental Status Exam Mental Status Exam Patient Appearance: Appropriate Patient Orientation: Person and Situation Level of Consciousness: Awake and Appropriate Patient Behavior: Guarded and Passive Mood Description: Constricted Affect Description: Blunted Ability to Follow Directions: Good Speech Pattern: Clear Hallucinations: None Delusions: Paranoid Ideation and Ideas of Reference Thought Process: Distracted and Slowed Thinking Thought Content: positive for [place] and positive for Poverty of Content Judgement: Fair Diagnostics Vital Signs (24Hr): Vital Signs - 24 hr 03/10/24 20:00 03/11/24 08:25 03/11/24 08:32 Temperature 96.2 F L 97.9 F Pulse Rate 77 78 Respiratory Rate 16 18 Blood Pressure 128/78 122/60 122/60 Pulse Oximetry 96 95 Oxygen Delivery Method Room Air Room Air 03/11/24 08:33 Temperature Pulse Rate Respiratory Rate Blood Pressure 122/60 Pulse Oximetry Oxygen Delivery Method BMI result Body Mass Index 37.9 Labs 03/06/24 07:43 Labs: Laboratory Results - last 48 hr 03/10/24 09:02 COVID-19 ([facility]) Positive A COVID-19 Clin Com See Note Medications Medications Current Medications Acetaminophen (Acetaminophen 325 Mg Tablet) 650 mg PO Q6H PRN PRN Reason: Headache/Pain Mild Scale (1-3) Last Admin: 03/09/24 12:32 Dose: 650 mg Al Hydroxide/Mg Hydroxide (Magnesium Hydrox/Alum Hydrox 30 Ml Oral.Susp) 30 ml PO Q6H PRN PRN Reason: Heartburn/Nausea Albuterol Sulfate (Albuterol Sulfate 90 Mcg 8 Gm Inhaler) 2 puff INHALE QID PRN PRN Reason: wheezing Aspirin (Aspirin Enteric Coated 325 Mg Tablet.) 325 mg PO BID [facility] Last Admin: 03/11/24 08:32 Dose: 325 mg Atorvastatin Calcium (Atorvastatin Calcium 80 Mg Tablet) 80 mg PO DAILY [facility] Last Admin: 03/11/24 08:32 Dose: 80 mg Furosemide (Furosemide 20 Mg Tablet) 20 mg PO DAILY [facility]; Protocol Last Admin: 03/11/24 08:32 Dose: 20 mg Guaifenesin (Guaifenesin 200 Mg/10 Ml 10 Ml Liquid) 10 ml PO Q4H PRN PRN Reason: Cough Last Admin: 03/07/24 08:29 Dose: 10 ml Hydroxyzine HCl (Hydroxyzine Hcl 25 Mg Tablet) 25 mg PO Q6H PRN PRN Reason: Anxiety Last Admin: 03/06/24 20:47 Dose: 25 mg Levothyroxine Sodium (Levothyroxine Sodium 88 Mcg Tablet) 88 mcg PO DAILY@0600 [facility] Last Admin: 03/11/24 05:45 Dose: 88 mcg Lisinopril (Lisinopril 5 Mg Tablet) 5 mg PO DAILY [facility]; Protocol Last Admin: 03/11/24 08:33 Dose: 5 mg Lorazepam (Lorazepam 0.5 Mg Tablet) 0.5 mg PO TID [facility] Last Admin: 03/11/24 08:32 Dose: 0.5 mg Magnesium Hydroxide (Milk Of Magnesia 30 Ml Oral.Susp) 30 ml PO DAILY PRN PRN Reason: Constipation Mirabegron (Mirabegron 50 Mg Tab.Er.24h) 50 mg PO BEDTIME [facility] Last Admin: 03/10/24 21:05 Dose: 50 mg Omeprazole (Omeprazole 20 Mg Capsule.Dr) 20 mg PO DAILY@0630 [facility] Last Admin: 03/11/24 05:45 Dose: 20 mg Quetiapine Fumarate (Quetiapine Fumarate 300 Mg Tablet) 300 mg PO BEDTIME [facility] Last Admin: 03/10/24 21:05 Dose: 300 mg Risperidone (Risperidone 2 Mg Tablet) 2 mg PO BEDTIME [facility] Last Admin: 03/10/24 21:05 Dose: 2 mg Risperidone (Risperidone 2 Mg Tablet) 2 mg PO DAILY [facility] Last Admin: 03/11/24 08:32 Dose: 2 mg Trazodone HCl (Trazodone Hcl 50 Mg Tablet) 50 mg PO BEDTIME MRX1 PRN PRN Reason: Insomnia Last Admin: 03/08/24 21:22 Dose: 50 mg Allergies Allergies Allergy/AdvReac Type Severity Reaction Status Date / Time Penicillins Allergy Unknown Unknown Verified 03/05/24 22:11 Assessment & Plan Assessment & Plan (1) Schizoaffective disorder: Status: Acute Code(s): F25.9 - Schizoaffective disorder, unspecified Plan Ms. Pedro is a 68 year-old woman with hx of schizoaffective disorder who was assessed by [facility] at request of her outpatient psychiatrist, Dr. Natty Marte due to pt presenting as increasingly more paranoid and disorganized. She is covid positive. currently on isolation with no significant symptoms- no SOB, o2sat>96 on RA, afebrile. We discussed risks, benefits and alternative treatment options, will hold on antidepressants as will worsen psychosis, increase risperidone to 1mg po daily and 2mg po qhs. will add some ativan for catatonic-like symptoms including blank stare, mutism (or minimal spontaneous speech with significant delayed in responses). PLAN 1. admit to s1, cv, 15 minutes checks 2. increase risperidone 1mg po daily and 2mg po qhs. Risperdal was increased to 2 mg p.o. b.i.d. on March 09. 3. obtain collateral information 4. aftercare planning. 5. Seroquel will increase up to 300 mg p.o. q.h.s. on March 10. Reason for continued inpatient stay Substantial Risk for: inability to function, rapid decompensation and med/psych decompensation Time Spent With Patient Time: Total time managing care of this patient today __20__ minutes.
[2024-03-11 20:00] VITALS: BP 148/77; PULSE 72; RESP 18; TEMP 36.6; O2SAT 94
[2024-03-11] MEDS: Mirabegron 50 MG TAB.ER.24H PO (20:57)
[2024-03-11] MEDS: QUEtiapine Fumarate 300 MG TABLET PO (20:58)
[2024-03-12] MEDS: Omeprazole 20 MG CAPSULE.DR PO (05:48)
[2024-03-12] MEDS: Levothyroxine Sodium 88 MCG TABLET PO (05:48)
[2024-03-12 09:05] VITALS: BP 132/63; PULSE 79; RESP 18; TEMP 36.5; O2SAT 94
[2024-03-12] MEDS: lisinopriL 5 MG TABLET PO (09:15)
[2024-03-12] MEDS: Atorvastatin Calcium 80 MG TABLET PO (09:15)
[2024-03-12] MEDS: risperiDONE 2 MG TABLET PO ×2 (09:15→20:46)
[2024-03-12] MEDS: Aspirin Enteric Coated 325 MG TABLET.DR PO ×2 (09:15→20:45)
[2024-03-12] MEDS: Furosemide 20 MG TABLET PO (09:15)
[2024-03-12] MEDS: LORazepam 0.5 MG TABLET PO ×3 (09:16→20:45)
[2024-03-12 11:49] LABS: COVID-19 Test Negative (Negative); IDNOW Serial# 08D9AD1C
--- NOTE | 2024-03-12 13:52 | HO.PSYCHPN ---
Subjective Subjective Date of Service: 03/12/24 Reason For Visit: Bipolar, anxiety, PTSD Subjective Notes: Conditional Voluntary Interim History: The nursing staff reported the patient had been with a blunted affect most of the time in her bed, she has eating well. Fully compliant with treatment and she slept 8 hours. On interview the patient denies new symptoms she looks internally preoccupied. The social services specialist will try to arrange a family meeting with her son to get more collateral information. Her outpatient psychiatrist reported that she is usually at Risperdal 2 mg p.o. b.i.d. and Seroquel 300 and she usually is not grossly psychotic that she has delusions of being persecuted by the devil. Mental Status Exam Mental Status Exam Patient Appearance: Appropriate Patient Orientation: Person and Situation Level of Consciousness: Awake and Appropriate Patient Behavior: Guarded and Passive Mood Description: Withdrawn Affect Description: Constricted Patient Cognition Impaired: Yes Ability to Follow Directions: Good Speech Pattern: Clear Hallucinations: Auditory Delusions: Paranoid Ideation and Ideas of Reference Thought Process: Distracted, Evasive and Slowed Thinking Thought Content: positive for [place] and positive for Poverty of Content Judgement: Fair Diagnostics Vital Signs (24Hr): Vital Signs - 24 hr 03/11/24 20:00 03/12/24 09:05 Temperature 97.8 F 97.7 F Pulse Rate 72 79 Respiratory Rate 18 18 Blood Pressure 148/77 H 132/63 Pulse Oximetry 94 94 Oxygen Delivery Method Room Air Room Air BMI result Body Mass Index 37.9 Labs 03/06/24 07:43 Labs: Laboratory Results - last 48 hr 03/12/24 11:20 COVID-19 (SERAFIN) Negative COVID-19 Clin Com See Note Medications Medications Current Medications Acetaminophen (Acetaminophen 325 Mg Tablet) 650 mg PO Q6H PRN PRN Reason: Headache/Pain Mild Scale (1-3) Last Admin: 03/09/24 12:32 Dose: 650 mg Al Hydroxide/Mg Hydroxide (Magnesium Hydrox/Alum Hydrox 30 Ml Oral.Susp) 30 ml PO Q6H PRN PRN Reason: Heartburn/Nausea Albuterol Sulfate (Albuterol Sulfate 90 Mcg 8 Gm Inhaler) 2 puff INHALE QID PRN PRN Reason: wheezing Aspirin (Aspirin Enteric Coated 325 Mg Tablet.Dr) 325 mg PO BID [facility] Last Admin: 03/12/24 09:15 Dose: 325 mg Atorvastatin Calcium (Atorvastatin Calcium 80 Mg Tablet) 80 mg PO DAILY [facility] Last Admin: 03/12/24 09:15 Dose: 80 mg Furosemide (Furosemide 20 Mg Tablet) 20 mg PO DAILY [facility]; Protocol Last Admin: 03/12/24 09:15 Dose: 20 mg Guaifenesin (Guaifenesin 200 Mg/10 Ml 10 Ml Liquid) 10 ml PO Q4H PRN PRN Reason: Cough Last Admin: 03/07/24 08:29 Dose: 10 ml Hydroxyzine HCl (Hydroxyzine Hcl 25 Mg Tablet) 25 mg PO Q6H PRN PRN Reason: Anxiety Last Admin: 03/06/24 20:47 Dose: 25 mg Levothyroxine Sodium (Levothyroxine Sodium 88 Mcg Tablet) 88 mcg PO DAILY@0600 [facility] Last Admin: 03/12/24 05:48 Dose: 88 mcg Lisinopril (Lisinopril 5 Mg Tablet) 5 mg PO DAILY [facility]; Protocol Last Admin: 03/12/24 09:15 Dose: 5 mg Lorazepam (Lorazepam 0.5 Mg Tablet) 0.5 mg PO TID [facility] Last Admin: 03/12/24 09:16 Dose: 0.5 mg Magnesium Hydroxide (Milk Of Magnesia 30 Ml Oral.Susp) 30 ml PO DAILY PRN PRN Reason: Constipation Mirabegron (Mirabegron 50 Mg Tab.Er.24h) 50 mg PO BEDTIME [facility] Last Admin: 03/11/24 20:57 Dose: 50 mg Omeprazole (Omeprazole 20 Mg Capsule.Dr) 20 mg PO DAILY@0630 [facility] Last Admin: 03/12/24 05:48 Dose: 20 mg Quetiapine Fumarate (Quetiapine Fumarate 300 Mg Tablet) 300 mg PO BEDTIME [facility] Last Admin: 03/11/24 20:58 Dose: 300 mg Risperidone (Risperidone 2 Mg Tablet) 2 mg PO BEDTIME [facility] Last Admin: 03/11/24 20:58 Dose: 2 mg Risperidone (Risperidone 2 Mg Tablet) 2 mg PO DAILY [facility] Last Admin: 03/12/24 09:15 Dose: 2 mg Trazodone HCl (Trazodone Hcl 50 Mg Tablet) 50 mg PO BEDTIME MRX1 PRN PRN Reason: Insomnia Last Admin: 03/08/24 21:22 Dose: 50 mg Allergies Allergies Allergy/AdvReac Type Severity Reaction Status Date / Time Penicillins Allergy Unknown Unknown Verified 03/05/24 22:11 Assessment & Plan Assessment & Plan (1) Schizoaffective disorder: Status: Acute Code(s): F25.9 - Schizoaffective disorder, unspecified Plan Ms. Pedro is a 68 year-old woman with hx of schizoaffective disorder who was assessed by [facility] crisis at request of her outpatient psychiatrist, Dr. Natty Marte due to pt presenting as increasingly more paranoid and disorganized. She is covid positive. currently on isolation with no significant symptoms- no SOB, o2sat>96 on RA, afebrile. We discussed risks, benefits and alternative treatment options, will hold on antidepressants as will worsen psychosis, increase risperidone to 1mg po daily and 2mg po qhs. will add some ativan for catatonic-like symptoms including blank stare, mutism (or minimal spontaneous speech with significant delayed in responses). PLAN 1. admit to s1, cv, 15 minutes checks 2. increase risperidone 1mg po daily and 2mg po qhs. Risperdal was increased to 2 mg p.o. b.i.d. on March 09. 3. obtain collateral information 4. aftercare planning. 5. Seroquel will increase up to 300 mg p.o. q.h.s. on March 10. Reason for continued inpatient stay Substantial Risk for: inability to function, rapid decompensation and med/psych decompensation Time Spent With Patient Time: Total time managing care of this patient today __20__ minutes.
[2024-03-12 20:00] VITALS: BP 122/68; PULSE 76; RESP 18; TEMP 36.4; O2SAT 94
[2024-03-12] MEDS: Mirabegron 50 MG TAB.ER.24H PO (20:45)
[2024-03-12] MEDS: QUEtiapine Fumarate 300 MG TABLET PO (20:46)
[2024-03-13] MEDS: Omeprazole 20 MG CAPSULE.DR PO (06:12)
[2024-03-13] MEDS: Levothyroxine Sodium 88 MCG TABLET PO (06:12)
[2024-03-13 08:00] VITALS: BP 132/77; PULSE 67; RESP 18; O2SAT 94
[2024-03-13] MEDS: LORazepam 0.5 MG TABLET PO ×3 (08:29→20:45)
[2024-03-13] MEDS: risperiDONE 2 MG TABLET PO ×2 (08:29→20:46)
[2024-03-13] MEDS: Aspirin Enteric Coated 325 MG TABLET.DR PO ×2 (08:29→20:45)
[2024-03-13] MEDS: Atorvastatin Calcium 80 MG TABLET PO (08:29)
[2024-03-13 08:30] VITALS: BP 132/77
[2024-03-13] MEDS: lisinopriL 5 MG TABLET PO (08:30)
[2024-03-13] MEDS: Furosemide 20 MG TABLET PO (08:30)
--- NOTE | 2024-03-13 09:39 | P.PNPSI_ITS ---
Subjective Subjective Date of Service: 03/13/24 Reason For Visit: Bipolar, anxiety, PTSD Subjective Notes: Conditional Voluntary Interim History: The nursing staff reported the patient had been COVID negative, she can go out of her room but needs some mask. On interview the patient remains internally preoccupied, quiet she slept 8 hours. Still paranoid. Mental Status Exam Mental Status Exam Patient Appearance: Appropriate Patient Orientation: Person and Situation Level of Consciousness: Awake and Appropriate Patient Behavior: Guarded and Passive Mood Description: Withdrawn Affect Description: Constricted Patient Cognition Impaired: Yes Ability to Follow Directions: Good Speech Pattern: Clear Hallucinations: None Delusions: Not Present Thought Process: Distracted and Evasive Thought Content: positive for [place] and positive for Poverty of Content Judgement: Fair Diagnostics Vital Signs (24Hr): Vital Signs - 24 hr 03/12/24 20:00 03/13/24 08:00 03/13/24 08:30 Temperature 97.6 F Pulse Rate 76 67 Respiratory Rate 18 18 Blood Pressure 122/68 132/77 132/77 Pulse Oximetry 94 94 Oxygen Delivery Method Room Air Room Air 03/13/24 08:30 Temperature Pulse Rate Respiratory Rate Blood Pressure 132/77 Pulse Oximetry Oxygen Delivery Method BMI result Body Mass Index 37.9 Labs 03/06/24 07:43 Labs: Laboratory Results - last 48 hr 03/12/24 11:20 COVID-19 ([facility]ERAFIN) Negative COVID-19 Clin Com See Note Medications Medications Current Medications Acetaminophen (Acetaminophen 325 Mg Tablet) 650 mg PO Q6H PRN PRN Reason: Headache/Pain Mild Scale (1-3) Last Admin: 03/09/24 12:32 Dose: 650 mg Al Hydroxide/Mg Hydroxide (Magnesium Hydrox/Alum Hydrox 30 Ml Oral.Susp) 30 ml PO Q6H PRN PRN Reason: Heartburn/Nausea Albuterol Sulfate (Albuterol Sulfate 90 Mcg 8 Gm Inhaler) 2 puff INHALE QID PRN PRN Reason: wheezing Aspirin (Aspirin Enteric Coated 325 Mg Tablet.) 325 mg PO BID [facility] Last Admin: 03/13/24 08:29 Dose: 325 mg Atorvastatin Calcium (Atorvastatin Calcium 80 Mg Tablet) 80 mg PO DAILY [facility] Last Admin: 03/13/24 08:29 Dose: 80 mg Furosemide (Furosemide 20 Mg Tablet) 20 mg PO DAILY [facility]; Protocol Last Admin: 03/13/24 08:30 Dose: 20 mg Guaifenesin (Guaifenesin 200 Mg/10 Ml 10 Ml Liquid) 10 ml PO Q4H PRN PRN Reason: Cough Last Admin: 03/07/24 08:29 Dose: 10 ml Hydroxyzine HCl (Hydroxyzine Hcl 25 Mg Tablet) 25 mg PO Q6H PRN PRN Reason: Anxiety Last Admin: 03/06/24 20:47 Dose: 25 mg Levothyroxine Sodium (Levothyroxine Sodium 88 Mcg Tablet) 88 mcg PO DAILY@0600 [facility] Last Admin: 03/13/24 06:12 Dose: 88 mcg Lisinopril (Lisinopril 5 Mg Tablet) 5 mg PO DAILY [facility]; Protocol Last Admin: 03/13/24 08:30 Dose: 5 mg Lorazepam (Lorazepam 0.5 Mg Tablet) 0.5 mg PO TID [facility] Last Admin: 03/13/24 08:29 Dose: 0.5 mg Magnesium Hydroxide (Milk Of Magnesia 30 Ml Oral.Susp) 30 ml PO DAILY PRN PRN Reason: Constipation Mirabegron (Mirabegron 50 Mg Tab.Er.24h) 50 mg PO BEDTIME [facility] Last Admin: 03/12/24 20:45 Dose: 50 mg Omeprazole (Omeprazole 20 Mg Capsule.Dr) 20 mg PO DAILY@0630 [facility] Last Admin: 03/13/24 06:12 Dose: 20 mg Quetiapine Fumarate (Quetiapine Fumarate 300 Mg Tablet) 300 mg PO BEDTIME [facility] Last Admin: 03/12/24 20:46 Dose: 300 mg Risperidone (Risperidone 2 Mg Tablet) 2 mg PO BEDTIME [facility] Last Admin: 03/12/24 20:46 Dose: 2 mg Risperidone (Risperidone 2 Mg Tablet) 2 mg PO DAILY [facility] Last Admin: 03/13/24 08:29 Dose: 2 mg Trazodone HCl (Trazodone Hcl 50 Mg Tablet) 50 mg PO BEDTIME MRX1 PRN PRN Reason: Insomnia Last Admin: 03/08/24 21:22 Dose: 50 mg Allergies Allergies Allergy/AdvReac Type Severity Reaction Status Date / Time Penicillins Allergy Unknown Unknown Verified 03/05/24 22:11 Assessment & Plan Assessment & Plan (1) Schizoaffective disorder: Status: Acute Code(s): F25.9 - Schizoaffective disorder, unspecified Plan Ms. Pedro is a 68 year-old woman with hx of schizoaffective disorder who was assessed by [facility] [facility] crisis at request of her outpatient psychiatrist, Dr. Natty Marte due to pt presenting as increasingly more paranoid and disorganized. She is covid positive. currently on isolation with no significant symptoms- no SOB, o2sat>96 on RA, afebrile. We discussed risks, benefits and alternative treatment options, will hold on antidepressants as will worsen psychosis, increase risperidone to 1mg po daily and 2mg po qhs. will add some ativan for catatonic- like symptoms including blank stare, mutism (or minimal spontaneous speech with significant delayed in responses). PLAN 1. admit to s1, cv, 15 minutes checks 2. increase risperidone 1mg po daily and 2mg po qhs. Risperdal was increased to 2 mg p.o. b.i.d. on March 09. 3. obtain collateral information 4. aftercare planning. 5. Seroquel will increase up to 300 mg p.o. q.h.s. on March 10. Reason for continued inpatient stay Substantial Risk for: inability to function, rapid decompensation and med/psych decompensation Time Spent With Patient Time: Total time managing care of this patient today _20___ minutes.
[2024-03-13 20:00] VITALS: BP 118/72; PULSE 84; RESP 18; TEMP 36.6; O2SAT 94
[2024-03-13] MEDS: Mirabegron 50 MG TAB.ER.24H PO (20:45)
[2024-03-13] MEDS: QUEtiapine Fumarate 300 MG TABLET PO (20:45)
[2024-03-14] MEDS: Omeprazole 20 MG CAPSULE.DR PO (05:55)
[2024-03-14] MEDS: Levothyroxine Sodium 88 MCG TABLET PO (05:55)
[2024-03-14 08:00] VITALS: BP 119/71; PULSE 71; RESP 18; TEMP 36.1; O2SAT 95
[2024-03-14 08:22] VITALS: BP 119/71
[2024-03-14] MEDS: lisinopriL 5 MG TABLET PO (08:22)
[2024-03-14] MEDS: Aspirin Enteric Coated 325 MG TABLET.DR PO ×2 (08:22→20:10)
[2024-03-14 08:23] VITALS: BP 119/71
[2024-03-14] MEDS: LORazepam 0.5 MG TABLET PO ×3 (08:23→20:10)
[2024-03-14] MEDS: risperiDONE 2 MG TABLET PO (08:23)
[2024-03-14] MEDS: Furosemide 20 MG TABLET PO (08:23)
[2024-03-14] MEDS: Atorvastatin Calcium 80 MG TABLET PO (08:23)
--- NOTE | 2024-03-14 09:47 | P.PNPSI_ITS ---
Subjective Subjective Date of Service: 03/14/24 Reason For Visit: Bipolar, anxiety, PTSD Subjective Notes: Conditional Voluntary Interim History: The nursing staff reported the patient had been isolative out in the milieu, she reports some anxiety depression in the morning. Yesterday in the afternoon she was out of her room tearful in the evening. On interview the patient looks internally preoccupied denies active auditory hallucinations at this moment. We discussed options and she agreed increase slightly antipsychotics to take care of the hallucinations Mental Status Exam Mental Status Exam Patient Appearance: Appropriate Patient Orientation: Person and Situation Level of Consciousness: Awake Patient Behavior: Guarded and Passive Mood Description: Withdrawn Affect Description: Constricted Patient Cognition Impaired: Yes Ability to Follow Directions: Good Speech Pattern: Clear Hallucinations: None Delusions: Paranoid Ideation and Ideas of Reference Thought Process: Distracted and Slowed Thinking Thought Content: positive for [place] and positive for Poverty of Content Judgement: Poor Diagnostics Vital Signs (24Hr): Vital Signs - 24 hr 03/13/24 20:00 03/14/24 08:00 03/14/24 08:22 Temperature 98 F 97.0 F Pulse Rate 84 71 Respiratory Rate 18 18 Blood Pressure 118/72 119/71 119/71 Pulse Oximetry 94 95 Oxygen Delivery Method Room Air Room Air 03/14/24 08:23 Temperature Pulse Rate Respiratory Rate Blood Pressure 119/71 Pulse Oximetry Oxygen Delivery Method BMI result Body Mass Index 37.9 Labs 03/06/24 07:43 Labs: Laboratory Results - last 48 hr 03/12/24 11:20 COVID-19 ([facility]ERAFIN) Negative COVID-19 Clin Com See Note Medications Medications Current Medications Acetaminophen (Acetaminophen 325 Mg Tablet) 650 mg PO Q6H PRN PRN Reason: Headache/Pain Mild Scale (1-3) Last Admin: 03/09/24 12:32 Dose: 650 mg Al Hydroxide/Mg Hydroxide (Magnesium Hydrox/Alum Hydrox 30 Ml Oral.Susp) 30 ml PO Q6H PRN PRN Reason: Heartburn/Nausea Albuterol Sulfate (Albuterol Sulfate 90 Mcg 8 Gm Inhaler) 2 puff INHALE QID PRN PRN Reason: wheezing Aspirin (Aspirin Enteric Coated 325 Mg Tablet.) 325 mg PO BID [facility] Last Admin: 03/14/24 08:22 Dose: 325 mg Atorvastatin Calcium (Atorvastatin Calcium 80 Mg Tablet) 80 mg PO DAILY [facility] Last Admin: 03/14/24 08:23 Dose: 80 mg Furosemide (Furosemide 20 Mg Tablet) 20 mg PO DAILY [facility]; Protocol Last Admin: 03/14/24 08:23 Dose: 20 mg Guaifenesin (Guaifenesin 200 Mg/10 Ml 10 Ml Liquid) 10 ml PO Q4H PRN PRN Reason: Cough Last Admin: 03/07/24 08:29 Dose: 10 ml Hydroxyzine HCl (Hydroxyzine Hcl 25 Mg Tablet) 25 mg PO Q6H PRN PRN Reason: Anxiety Last Admin: 03/06/24 20:47 Dose: 25 mg Levothyroxine Sodium (Levothyroxine Sodium 88 Mcg Tablet) 88 mcg PO DAILY@0600 [facility] Last Admin: 03/14/24 05:55 Dose: 88 mcg Lisinopril (Lisinopril 5 Mg Tablet) 5 mg PO DAILY [facility]; Protocol Last Admin: 03/14/24 08:22 Dose: 5 mg Lorazepam (Lorazepam 0.5 Mg Tablet) 0.5 mg PO TID [facility] Last Admin: 03/14/24 08:23 Dose: 0.5 mg Magnesium Hydroxide (Milk Of Magnesia 30 Ml Oral.Susp) 30 ml PO DAILY PRN PRN Reason: Constipation Mirabegron (Mirabegron 50 Mg Tab.Er.24h) 50 mg PO BEDTIME [facility] Last Admin: 03/13/24 20:45 Dose: 50 mg Omeprazole (Omeprazole 20 Mg Capsule.Dr) 20 mg PO DAILY@0630 [facility] Last Admin: 03/14/24 05:55 Dose: 20 mg Quetiapine Fumarate (Quetiapine Fumarate 300 Mg Tablet) 300 mg PO BEDTIME [facility] Last Admin: 03/13/24 20:45 Dose: 300 mg Risperidone (Risperidone 2 Mg Tablet) 2 mg PO BEDTIME [facility] Last Admin: 03/13/24 20:46 Dose: 2 mg Risperidone (Risperidone 2 Mg Tablet) 2 mg PO DAILY [facility] Last Admin: 03/14/24 08:23 Dose: 2 mg Trazodone HCl (Trazodone Hcl 50 Mg Tablet) 50 mg PO BEDTIME MRX1 PRN PRN Reason: Insomnia Last Admin: 03/08/24 21:22 Dose: 50 mg Allergies Allergies Allergy/AdvReac Type Severity Reaction Status Date / Time Penicillins Allergy Unknown Unknown Verified 03/05/24 22:11 Assessment & Plan Assessment & Plan (1) Schizoaffective disorder: Status: Acute Code(s): F25.9 - Schizoaffective disorder, unspecified Plan Ms. Pedro is a 68 year-old woman with hx of schizoaffective disorder who was assessed by [facility] crisis at request of her outpatient psychiatrist, Dr. Natty Marte due to pt presenting as increasingly more paranoid and disorganized. She is covid positive. currently on isolation with no significant symptoms- no SOB, o2sat>96 on RA, afebrile. We discussed risks, benefits and alternative treatment options, will hold on antidepressants as will worsen psychosis, increase risperidone to 1mg po daily and 2mg po qhs. will add some ativan for catatonic- like symptoms including blank stare, mutism (or minimal spontaneous speech with significant delayed in responses). PLAN 1. admit to s1, cv, 15 minutes checks 2. increase risperidone 1mg po daily and 2mg po qhs. Risperdal was increased to 2 mg p.o. b.i.d. on March 09. March 14 we are increasing up to 2 mg in the morning and 3 at night. 3. obtain collateral information 4. aftercare planning. 5. Seroquel will increase up to 300 mg p.o. q.h.s. on March 10. Reason for continued inpatient stay Substantial Risk for: inability to function, rapid decompensation and med/psych decompensation Time Spent With Patient Time: Total time managing care of this patient today __20__ minutes.
[2024-03-14] MEDS: Acetaminophen 325 MG TABLET 650 MG PO (10:43)
[2024-03-14 20:00] VITALS: BP 129/62; PULSE 66; RESP 16; TEMP 36.4; O2SAT 93
[2024-03-14] MEDS: QUEtiapine Fumarate 300 MG TABLET PO (20:09)
[2024-03-14] MEDS: Mirabegron 50 MG TAB.ER.24H PO (20:09)
[2024-03-14] MEDS: risperiDONE 3 MG TABLET PO (20:46)
[2024-03-15] MEDS: Levothyroxine Sodium 88 MCG TABLET PO (05:42)
[2024-03-15] MEDS: Omeprazole 20 MG CAPSULE.DR PO (05:42)
[2024-03-15 08:00] VITALS: BP 137/90; PULSE 84; RESP 18; TEMP 36.2; O2SAT 96
[2024-03-15] MEDS: Atorvastatin Calcium 80 MG TABLET PO (08:52)
[2024-03-15] MEDS: Furosemide 20 MG TABLET PO (08:52)
[2024-03-15] MEDS: lisinopriL 5 MG TABLET PO (08:53)
[2024-03-15] MEDS: LORazepam 0.5 MG TABLET PO ×3 (08:53→20:38)
[2024-03-15] MEDS: Aspirin Enteric Coated 325 MG TABLET.DR PO ×2 (08:53→20:35)
[2024-03-15] MEDS: risperiDONE 2 MG TABLET PO (08:53)
--- NOTE | 2024-03-15 10:46 | P.PNPSI_ITS ---
Subjective Subjective Date of Service: 03/15/24 Reason For Visit: Bipolar, anxiety, PTSD Subjective Notes: Conditional Voluntary Interim History: The nursing staff reported the patient had been out for meals, she complained of hemorrhoids. On interview the patient denies new symptoms looks internally preoccupied seclusive in her room. She agreed to increase Risperdal Mental Status Exam Mental Status Exam Patient Appearance: Appropriate Patient Orientation: Person and Situation Level of Consciousness: Awake and Appropriate Patient Behavior: Guarded and Passive Mood Description: Calm Affect Description: Blunted Patient Cognition Impaired: Yes Ability to Follow Directions: Good Speech Pattern: Clear Hallucinations: None Delusions: Paranoid Ideation and Ideas of Reference Thought Process: Distracted and Slowed Thinking Thought Content: positive for [place] and positive for Poverty of Content Judgement: Fair Diagnostics Vital Signs (24Hr): Vital Signs - 24 hr 03/14/24 20:00 03/15/24 08:00 Temperature 97.5 F 97.2 F Pulse Rate 66 84 Respiratory Rate 16 18 Blood Pressure 129/62 137/90 H Pulse Oximetry 93 96 Oxygen Delivery Method Room Air Room Air BMI result Body Mass Index 37.9 Labs 03/06/24 07:43 Medications Medications Current Medications Acetaminophen (Acetaminophen 325 Mg Tablet) 650 mg PO Q6H PRN PRN Reason: Headache/Pain Mild Scale (1-3) Last Admin: 03/14/24 10:43 Dose: 650 mg Al Hydroxide/Mg Hydroxide (Magnesium Hydrox/Alum Hydrox 30 Ml Oral.Susp) 30 ml PO Q6H PRN PRN Reason: Heartburn/Nausea Albuterol Sulfate (Albuterol Sulfate 90 Mcg 8 Gm Inhaler) 2 puff INHALE QID PRN PRN Reason: wheezing Aspirin (Aspirin Enteric Coated 325 Mg Tablet.Dr) 325 mg PO BID [facility] Last Admin: 03/15/24 08:53 Dose: 325 mg Atorvastatin Calcium (Atorvastatin Calcium 80 Mg Tablet) 80 mg PO DAILY [facility] Last Admin: 03/15/24 08:52 Dose: 80 mg Furosemide (Furosemide 20 Mg Tablet) 20 mg PO DAILY [facility]; Protocol Last Admin: 03/15/24 08:52 Dose: 20 mg Guaifenesin (Guaifenesin 200 Mg/10 Ml 10 Ml Liquid) 10 ml PO Q4H PRN PRN Reason: Cough Last Admin: 03/07/24 08:29 Dose: 10 ml Hydroxyzine HCl (Hydroxyzine Hcl 25 Mg Tablet) 25 mg PO Q6H PRN PRN Reason: Anxiety Last Admin: 03/06/24 20:47 Dose: 25 mg Levothyroxine Sodium (Levothyroxine Sodium 88 Mcg Tablet) 88 mcg PO DAILY@0600 [facility] Last Admin: 03/15/24 05:42 Dose: 88 mcg Lisinopril (Lisinopril 5 Mg Tablet) 5 mg PO DAILY [facility]; Protocol Last Admin: 03/15/24 08:53 Dose: 5 mg Lorazepam (Lorazepam 0.5 Mg Tablet) 0.5 mg PO TID [facility] Last Admin: 03/15/24 08:53 Dose: 0.5 mg Magnesium Hydroxide (Milk Of Magnesia 30 Ml Oral.Susp) 30 ml PO DAILY PRN PRN Reason: Constipation Mirabegron (Mirabegron 50 Mg Tab.Er.24h) 50 mg PO BEDTIME [facility] Last Admin: 03/14/24 20:09 Dose: 50 mg Omeprazole (Omeprazole 20 Mg Capsule.Dr) 20 mg PO DAILY@0630 [facility] Last Admin: 03/15/24 05:42 Dose: 20 mg Quetiapine Fumarate (Quetiapine Fumarate 300 Mg Tablet) 300 mg PO BEDTIME [facility] Last Admin: 03/14/24 20:09 Dose: 300 mg Risperidone (Risperidone 2 Mg Tablet) 2 mg PO DAILY [facility] Last Admin: 03/15/24 08:53 Dose: 2 mg Risperidone (Risperidone 3 Mg Tablet) 3 mg PO BEDTIME [facility] Last Admin: 03/14/24 20:46 Dose: 3 mg Trazodone HCl (Trazodone Hcl 50 Mg Tablet) 50 mg PO BEDTIME MRX1 PRN PRN Reason: Insomnia Last Admin: 03/08/24 21:22 Dose: 50 mg Allergies Allergies Allergy/AdvReac Type Severity Reaction Status Date / Time Penicillins Allergy Unknown Unknown Verified 03/05/24 22:11 Assessment & Plan Assessment & Plan (1) Schizoaffective disorder: Status: Acute Code(s): F25.9 - Schizoaffective disorder, unspecified Plan Ms. Pedro is a 68 year-old woman with hx of schizoaffective disorder who was assessed by [facility] crisis at request of her outpatient psychiatrist, Dr. Natty Marte due to pt presenting as increasingly more paranoid and disorganized. She is covid positive. currently on isolation with no significant symptoms- no SOB, o2sat>96 on RA, afebrile. We discussed risks, benefits and alternative treatment options, will hold on antidepressants as will worsen psychosis, increase risperidone to 1mg po daily and 2mg po qhs. will add some ativan for catatonic- like symptoms including blank stare, mutism (or minimal spontaneous speech with significant delayed in responses). PLAN 1. admit to s1, cv, 15 minutes checks 2. increase risperidone 1mg po daily and 2mg po qhs. Risperdal was increased to 2 mg p.o. b.i.d. on March 09. March 14 we are increasing up to 2 mg in the morning and 3 at night. On March 15 we are increasing to Risperdal 3 mg p.o. b.i.d. 3. obtain collateral information 4. aftercare planning. 5. Seroquel will increase up to 300 mg p.o. q.h.s. on March 10. Reason for continued inpatient stay Substantial Risk for: inability to function, rapid decompensation and med/psych decompensation Time Spent With Patient Time: Total time managing care of this patient today _20___ minutes.
[2024-03-15 20:00] VITALS: BP 122/71; PULSE 72; RESP 18; TEMP 36.4; O2SAT 95
[2024-03-15] MEDS: QUEtiapine Fumarate 300 MG TABLET PO (20:38)
[2024-03-15] MEDS: risperiDONE 3 MG TABLET PO (20:38)
[2024-03-15] MEDS: Mirabegron 50 MG TAB.ER.24H PO (20:38)
[2024-03-16] MEDS: Omeprazole 20 MG CAPSULE.DR PO (05:39)
[2024-03-16] MEDS: Levothyroxine Sodium 88 MCG TABLET PO (05:39)
[2024-03-16 08:50] VITALS: BP 116/56; PULSE 77; RESP 18; TEMP 36.1; O2SAT 95
[2024-03-16] MEDS: LORazepam 0.5 MG TABLET PO ×3 (08:50→20:15)
[2024-03-16] MEDS: risperiDONE 3 MG TABLET PO ×2 (08:50→20:15)
[2024-03-16] MEDS: Furosemide 20 MG TABLET PO (08:50)
[2024-03-16 08:51] VITALS: BP 116/56
[2024-03-16] MEDS: Atorvastatin Calcium 80 MG TABLET PO (08:51)
[2024-03-16] MEDS: lisinopriL 5 MG TABLET PO (08:51)
[2024-03-16] MEDS: Aspirin Enteric Coated 325 MG TABLET.DR PO ×2 (08:51→20:15)
[2024-03-16] MEDS: Milk of Magnesia 30 ML ORAL.SUSP PO (11:45)
--- NOTE | 2024-03-16 12:52 | HO.PSYCHPN ---
Subjective Subjective Date of Service: 03/16/24 Reason For Visit: Bipolar, anxiety, PTSD Subjective Notes: Conditional Voluntary Interim History: The nursing staff reported the patient presented flat and guarded affect very withdrawn, anxious and depressed. Today she was assessed in [facility] common areas after fresh air break and she looks a little more verbal. No side effects with increase of Risperdal. Mental Status Exam Mental Status Exam Patient Appearance: Appropriate Patient Orientation: Person and Situation Level of Consciousness: Awake Patient Behavior: Guarded and Passive Mood Description: Withdrawn Affect Description: Blunted Patient Cognition Impaired: Yes Ability to Follow Directions: Good Speech Pattern: Clear Hallucinations: Auditory Delusions: Paranoid Ideation and Ideas of Reference Thought Process: Distracted and Slowed Thinking Thought Content: positive for [place] and positive for Thought Blocking Judgement: Fair Diagnostics Vital Signs (24Hr): Vital Signs - 24 hr 03/15/24 20:00 03/16/24 08:50 03/16/24 08:50 Temperature 97.5 F 96.9 F Pulse Rate 72 77 Respiratory Rate 18 18 Blood Pressure 122/71 116/56 L 116/56 L Pulse Oximetry 95 95 Oxygen Delivery Method Room Air Room Air 03/16/24 08:51 Temperature Pulse Rate Respiratory Rate Blood Pressure 116/56 L Pulse Oximetry Oxygen Delivery Method BMI result Body Mass Index 37.9 Labs 03/06/24 07:43 Medications Medications Current Medications Acetaminophen (Acetaminophen 325 Mg Tablet) 650 mg PO Q6H PRN PRN Reason: Headache/Pain Mild Scale (1-3) Last Admin: 03/14/24 10:43 Dose: 650 mg Al Hydroxide/Mg Hydroxide (Magnesium Hydrox/Alum Hydrox 30 Ml Oral.Susp) 30 ml PO Q6H PRN PRN Reason: Heartburn/Nausea Albuterol Sulfate (Albuterol Sulfate 90 Mcg 8 Gm Inhaler) 2 puff INHALE QID PRN PRN Reason: wheezing Aspirin (Aspirin Enteric Coated 325 Mg Tablet.) 325 mg PO BID [facility] Last Admin: 03/16/24 08:51 Dose: 325 mg Atorvastatin Calcium (Atorvastatin Calcium 80 Mg Tablet) 80 mg PO DAILY [facility] Last Admin: 03/16/24 08:51 Dose: 80 mg Furosemide (Furosemide 20 Mg Tablet) 20 mg PO DAILY [facility]; Protocol Last Admin: 03/16/24 08:50 Dose: 20 mg Guaifenesin (Guaifenesin 200 Mg/10 Ml 10 Ml Liquid) 10 ml PO Q4H PRN PRN Reason: Cough Last Admin: 03/07/24 08:29 Dose: 10 ml Hydroxyzine HCl (Hydroxyzine Hcl 25 Mg Tablet) 25 mg PO Q6H PRN PRN Reason: Anxiety Last Admin: 03/06/24 20:47 Dose: 25 mg Levothyroxine Sodium (Levothyroxine Sodium 88 Mcg Tablet) 88 mcg PO DAILY@0600 [facility] Last Admin: 03/16/24 05:39 Dose: 88 mcg Lisinopril (Lisinopril 5 Mg Tablet) 5 mg PO DAILY [facility]; Protocol Last Admin: 03/16/24 08:51 Dose: 5 mg Lorazepam (Lorazepam 0.5 Mg Tablet) 0.5 mg PO TID [facility] Last Admin: 03/16/24 08:50 Dose: 0.5 mg Magnesium Hydroxide (Milk Of Magnesia 30 Ml Oral.Susp) 30 ml PO DAILY PRN PRN Reason: Constipation Last Admin: 03/16/24 11:45 Dose: 30 ml Mirabegron (Mirabegron 50 Mg Tab.Er.24h) 50 mg PO BEDTIME [facility] Last Admin: 03/15/24 20:38 Dose: 50 mg Omeprazole (Omeprazole 20 Mg Capsule.Dr) 20 mg PO DAILY@0630 [facility] Last Admin: 03/16/24 05:39 Dose: 20 mg Quetiapine Fumarate (Quetiapine Fumarate 300 Mg Tablet) 300 mg PO BEDTIME [facility] Last Admin: 03/15/24 20:38 Dose: 300 mg Risperidone (Risperidone 3 Mg Tablet) 3 mg PO BEDTIME [facility] Last Admin: 03/15/24 20:38 Dose: 3 mg Risperidone (Risperidone 3 Mg Tablet) 3 mg PO DAILY [facility] Last Admin: 03/16/24 08:50 Dose: 3 mg Trazodone HCl (Trazodone Hcl 50 Mg Tablet) 50 mg PO BEDTIME MRX1 PRN PRN Reason: Insomnia Last Admin: 03/08/24 21:22 Dose: 50 mg Allergies Allergies Allergy/AdvReac Type Severity Reaction Status Date / Time Penicillins Allergy Unknown Unknown Verified 03/05/24 22:11 Assessment & Plan Assessment & Plan (1) Schizoaffective disorder: Status: Acute Code(s): F25.9 - Schizoaffective disorder, unspecified Plan Ms. Pedro is a 68 year-old woman with hx of schizoaffective disorder who was assessed by [facility] at request of her outpatient psychiatrist, Dr. Natty Marte due to pt presenting as increasingly more paranoid and disorganized. She is covid positive. currently on isolation with no significant symptoms- no SOB, o2sat>96 on RA, afebrile. We discussed risks, benefits and alternative treatment options, will hold on antidepressants as will worsen psychosis, increase risperidone to 1mg po daily and 2mg po qhs. will add some ativan for catatonic-like symptoms including blank stare, mutism (or minimal spontaneous speech with significant delayed in responses). PLAN 1. admit to s1, cv, 15 minutes checks 2. increase risperidone 1mg po daily and 2mg po qhs. Risperdal was increased to 2 mg p.o. b.i.d. on March 09. March 14 we are increasing up to 2 mg in the morning and 3 at night. On March 15 we are increasing to Risperdal 3 mg p.o. b.i.d. 3. obtain collateral information 4. aftercare planning. 5. Seroquel will increase up to 300 mg p.o. q.h.s. on March 10. Reason for continued inpatient stay Substantial Risk for: inability to function, rapid decompensation and med/psych decompensation Time Spent With Patient Time: Total time managing care of this patient today __20__ minutes.
[2024-03-16 20:00] VITALS: BP 129/71; PULSE 77; RESP 16; TEMP 36.1; O2SAT 96
[2024-03-16] MEDS: QUEtiapine Fumarate 300 MG TABLET PO (20:15)
[2024-03-16] MEDS: Mirabegron 50 MG TAB.ER.24H PO (20:15)
[2024-03-16] MEDS: Cocoa Butter/Zinc Oxide SUPP.RECT 1 SUPP PR (22:52)
[2024-03-17] MEDS: Levothyroxine Sodium 88 MCG TABLET PO (06:09)
[2024-03-17] MEDS: Omeprazole 20 MG CAPSULE.DR PO (06:09)
[2024-03-17 08:00] VITALS: BP 128/65; PULSE 84; RESP 18; TEMP 35.9; O2SAT 96
[2024-03-17 09:08] VITALS: BP 128/65
[2024-03-17] MEDS: lisinopriL 5 MG TABLET PO (09:08)
[2024-03-17] MEDS: Acetaminophen 325 MG TABLET 650 MG PO (09:08)
[2024-03-17] MEDS: Aspirin Enteric Coated 325 MG TABLET.DR PO ×2 (09:10→20:31)
[2024-03-17] MEDS: risperiDONE 3 MG TABLET PO ×2 (09:10→20:32)
[2024-03-17] MEDS: Atorvastatin Calcium 80 MG TABLET PO (09:10)
[2024-03-17] MEDS: LORazepam 0.5 MG TABLET PO ×3 (09:11→20:31)
[2024-03-17] MEDS: Furosemide 20 MG TABLET PO (09:11)
--- NOTE | 2024-03-17 11:00 | P.PNPSI_ITS ---
Subjective Subjective Date of Service: 03/17/24 Reason For Visit: Bipolar, anxiety, PTSD Subjective Notes: Conditional Voluntary Interim History: The nursing staff reported that the patient had been quiet, napping. She complained of constipation and took milk of magnesia with good effect. The social services specialist reported the family was worried about cheeking medications. On interview the patient reports that she is having some sporadic auditory hallucinations but she feels better. Still internally preoccupied but less than before. She is complaining of poor sleep so she agreed to increase trazodone at night. Mental Status Exam Mental Status Exam Patient Appearance: Appropriate Patient Orientation: Person and Situation Level of Consciousness: Awake and Appropriate Patient Behavior: Guarded and Passive Mood Description: Withdrawn Affect Description: Constricted Patient Cognition Impaired: Yes Ability to Follow Directions: Good Diagnostics Vital Signs (24Hr): Vital Signs - 24 hr 03/16/24 20:00 03/17/24 08:00 03/17/24 09:08 Temperature 97 F 96.6 F L Pulse Rate 77 84 Respiratory Rate 16 18 Blood Pressure 129/71 128/65 128/65 Pulse Oximetry 96 96 Oxygen Delivery Method Room Air Room Air BMI result Body Mass Index 37.9 Labs 03/06/24 07:43 Medications Medications Current Medications Acetaminophen (Acetaminophen 325 Mg Tablet) 650 mg PO Q6H PRN PRN Reason: Headache/Pain Mild Scale (1-3) Last Admin: 03/17/24 09:08 Dose: 650 mg Al Hydroxide/Mg Hydroxide (Magnesium Hydrox/Alum Hydrox 30 Ml Oral.Susp) 30 ml PO Q6H PRN PRN Reason: Heartburn/Nausea Albuterol Sulfate (Albuterol Sulfate 90 Mcg 8 Gm Inhaler) 2 puff INHALE QID PRN PRN Reason: wheezing Aspirin (Aspirin Enteric Coated 325 Mg Tablet.) 325 mg PO BID [facility] Last Admin: 03/17/24 09:10 Dose: 325 mg Atorvastatin Calcium (Atorvastatin Calcium 80 Mg Tablet) 80 mg PO DAILY [facility] Last Admin: 03/17/24 09:10 Dose: 80 mg Furosemide (Furosemide 20 Mg Tablet) 20 mg PO DAILY [facility]; Protocol Last Admin: 03/17/24 09:11 Dose: 20 mg Guaifenesin (Guaifenesin 200 Mg/10 Ml 10 Ml Liquid) 10 ml PO Q4H PRN PRN Reason: Cough Last Admin: 04/28/24 08:29 Dose: 10 ml Hydroxyzine HCl (Hydroxyzine Hcl 25 Mg Tablet) 25 mg PO Q6H PRN PRN Reason: Anxiety Last Admin: 03/06/24 20:47 Dose: 25 mg Levothyroxine Sodium (Levothyroxine Sodium 88 Mcg Tablet) 88 mcg PO DAILY@0600 [facility] Last Admin: 03/17/24 06:09 Dose: 88 mcg Lisinopril (Lisinopril 5 Mg Tablet) 5 mg PO DAILY [facility]; Protocol Last Admin: 03/17/24 09:08 Dose: 5 mg Lorazepam (Lorazepam 0.5 Mg Tablet) 0.5 mg PO TID [facility] Last Admin: 03/17/24 09:11 Dose: 0.5 mg Magnesium Hydroxide (Milk Of Magnesia 30 Ml Oral.Susp) 30 ml PO DAILY PRN PRN Reason: Constipation Last Admin: 03/16/24 11:45 Dose: 30 ml Mirabegron (Mirabegron 50 Mg Tab.Er.24h) 50 mg PO BEDTIME [facility] Last Admin: 03/16/24 20:15 Dose: 50 mg Omeprazole (Omeprazole 20 Mg Capsule.Dr) 20 mg PO DAILY@0630 [facility] Last Admin: 03/17/24 06:09 Dose: 20 mg Quetiapine Fumarate (Quetiapine Fumarate 300 Mg Tablet) 300 mg PO BEDTIME [facility] Last Admin: 03/16/24 20:15 Dose: 300 mg Risperidone (Risperidone 3 Mg Tablet) 3 mg PO BEDTIME [facility] Last Admin: 03/16/24 20:15 Dose: 3 mg Risperidone (Risperidone 3 Mg Tablet) 3 mg PO DAILY [facility] Last Admin: 03/17/24 09:10 Dose: 3 mg Trazodone HCl (Trazodone Hcl 50 Mg Tablet) 50 mg PO BEDTIME MRX1 PRN PRN Reason: Insomnia Last Admin: 03/08/24 21:22 Dose: 50 mg Allergies Allergies Allergy/AdvReac Type Severity Reaction Status Date / Time Penicillins Allergy Unknown Unknown Verified 03/05/24 22:11 Assessment & Plan Assessment & Plan (1) Schizoaffective disorder: Status: Acute Code(s): F25.9 - Schizoaffective disorder, unspecified Plan Ms. Pedro is a 68 year-old woman with hx of schizoaffective disorder who was assessed by [employer] crisis at request of her outpatient psychiatrist, Dr. Natty Marte due to pt presenting as increasingly more paranoid and disorganized. She is covid positive. currently on isolation with no significant symptoms- no SOB, o2sat>96 on RA, afebrile. We discussed risks, benefits and alternative treatment options, will hold on antidepressants as will worsen psychosis, increase risperidone to 1mg po daily and 2mg po qhs. will add some ativan for catatonic- like symptoms including blank stare, mutism (or minimal spontaneous speech with significant delayed in responses). PLAN 1. admit to s1, cv, 15 minutes checks 2. increase risperidone 1mg po daily and 2mg po qhs. Risperdal was increased to 2 mg p.o. b.i.d. on March 09. March 14 we are increasing up to 2 mg in the morning and 3 at night. On March 15 we are increasing to Risperdal 3 mg p.o. b.i.d. 3. obtain collateral information 4. aftercare planning. 5. Seroquel will increase up to 300 mg p.o. q.h.s. on March 10. 6. Increase trazodone at night for sleep on March 17 Reason for continued inpatient stay Substantial Risk for: inability to function, rapid decompensation and med/psych decompensation Time Spent With Patient Time: Total time managing care of this patient today __20__ minutes.
[2024-03-17 20:00] VITALS: BP 105/76; PULSE 94; RESP 16; TEMP 36.6; O2SAT 93
[2024-03-17] MEDS: Mirabegron 50 MG TAB.ER.24H PO (20:31)
[2024-03-17] MEDS: QUEtiapine Fumarate 300 MG TABLET PO (20:31)
[2024-03-17] MEDS: traZODone HCL 100 MG TABLET PO (20:32)
[2024-03-18] MEDS: Omeprazole 20 MG CAPSULE.DR PO (05:36)
[2024-03-18] MEDS: Levothyroxine Sodium 88 MCG TABLET PO (05:36)
[2024-03-18 07:00] VITALS: BMI 38.5
[2024-03-18 08:00] VITALS: BP 129/63; PULSE 86; RESP 16; TEMP 36.6; O2SAT 95
--- NOTE | 2024-03-18 08:17 | HO.PSYCHPN ---
Subjective Subjective Date of Service: 03/18/24 Reason For Visit: Bipolar, anxiety, PTSD Subjective Notes: Conditional Voluntary Interim History: The nursing staff reported the patient had been compliant with her medications, she was seen more in the common areas and she attended to 1 group yesterday. On interview the patient reports improvement of her hallucinations and delusions but she complained of poor sleep. She agreed to increase hypnotics at night. We are going to have a family meeting today at 03:00 o'clock in the afternoon. Mental Status Exam Mental Status Exam Patient Appearance: Appropriate Patient Orientation: Person and Situation Level of Consciousness: Awake and Appropriate Patient Behavior: Guarded and Passive Mood Description: Withdrawn Affect Description: Blunted Patient Cognition Impaired: Yes Ability to Follow Directions: Good Speech Pattern: Clear Hallucinations: None Delusions: Paranoid Ideation and Ideas of Reference Thought Process: Distracted and Slowed Thinking Thought Content: positive for [place] and positive for Thought Blocking Judgement: Poor Diagnostics Vital Signs (24Hr): Vital Signs - 24 hr 03/17/24 09:08 03/17/24 20:00 Temperature 97.9 F Pulse Rate 94 Respiratory Rate 16 Blood Pressure 128/65 105/76 Pulse Oximetry 93 Oxygen Delivery Method Room Air BMI result Body Mass Index 37.9 Labs 03/06/24 07:43 Medications Medications Current Medications Acetaminophen (Acetaminophen 325 Mg Tablet) 650 mg PO Q6H PRN PRN Reason: Headache/Pain Mild Scale (1-3) Last Admin: 03/17/24 09:08 Dose: 650 mg Al Hydroxide/Mg Hydroxide (Magnesium Hydrox/Alum Hydrox 30 Ml Oral.Susp) 30 ml PO Q6H PRN PRN Reason: Heartburn/Nausea Albuterol Sulfate (Albuterol Sulfate 90 Mcg 8 Gm Inhaler) 2 puff INHALE QID PRN PRN Reason: wheezing Aspirin (Aspirin Enteric Coated 325 Mg Tablet.) 325 mg PO BID [facility] Last Admin: 03/17/24 20:31 Dose: 325 mg Atorvastatin Calcium (Atorvastatin Calcium 80 Mg Tablet) 80 mg PO DAILY [facility] Last Admin: 03/17/24 09:10 Dose: 80 mg Furosemide (Furosemide 20 Mg Tablet) 20 mg PO DAILY [facility]; Protocol Last Admin: 03/17/24 09:11 Dose: 20 mg Guaifenesin (Guaifenesin 200 Mg/10 Ml 10 Ml Liquid) 10 ml PO Q4H PRN PRN Reason: Cough Last Admin: 03/07/24 08:29 Dose: 10 ml Hydroxyzine HCl (Hydroxyzine Hcl 25 Mg Tablet) 25 mg PO Q6H PRN PRN Reason: Anxiety Last Admin: 03/06/24 20:47 Dose: 25 mg Levothyroxine Sodium (Levothyroxine Sodium 88 Mcg Tablet) 88 mcg PO DAILY@0600 [facility] Last Admin: 03/18/24 05:36 Dose: 88 mcg Lisinopril (Lisinopril 5 Mg Tablet) 5 mg PO DAILY [facility]; Protocol Last Admin: 03/17/24 09:08 Dose: 5 mg Lorazepam (Lorazepam 0.5 Mg Tablet) 0.5 mg PO TID [facility] Last Admin: 03/17/24 20:31 Dose: 0.5 mg Magnesium Hydroxide (Milk Of Magnesia 30 Ml Oral.Susp) 30 ml PO DAILY PRN PRN Reason: Constipation Last Admin: 03/16/24 11:45 Dose: 30 ml Mirabegron (Mirabegron 50 Mg Tab.Er.24h) 50 mg PO BEDTIME [facility] Last Admin: 03/17/24 20:31 Dose: 50 mg Omeprazole (Omeprazole 20 Mg Capsule.Dr) 20 mg PO DAILY@0630 [facility] Last Admin: 03/18/24 05:36 Dose: 20 mg Quetiapine Fumarate (Quetiapine Fumarate 300 Mg Tablet) 300 mg PO BEDTIME [facility] Last Admin: 03/17/24 20:31 Dose: 300 mg Risperidone (Risperidone 3 Mg Tablet) 3 mg PO BEDTIME [facility] Last Admin: 03/17/24 20:32 Dose: 3 mg Risperidone (Risperidone 3 Mg Tablet) 3 mg PO DAILY [facility] Last Admin: 03/17/24 09:10 Dose: 3 mg Trazodone HCl (Trazodone Hcl 50 Mg Tablet) 50 mg PO BEDTIME MRX1 PRN PRN Reason: Insomnia Last Admin: 03/08/24 21:22 Dose: 50 mg Trazodone HCl (Trazodone Hcl 100 Mg Tablet) 100 mg PO BEDTIME [facility] Last Admin: 03/17/24 20:32 Dose: 100 mg Allergies Allergies Allergy/AdvReac Type Severity Reaction Status Date / Time Penicillins Allergy Unknown Unknown Verified 03/05/24 22:11 Assessment & Plan Assessment & Plan (1) Schizoaffective disorder: Status: Acute Code(s): F25.9 - Schizoaffective disorder, unspecified Plan Ms. Pedro is a 68 year-old woman with hx of schizoaffective disorder who was assessed by [employer] crisis at request of her outpatient psychiatrist, Dr. Natty Marte due to pt presenting as increasingly more paranoid and disorganized. She is covid positive. currently on isolation with no significant symptoms- no SOB, o2sat>96 on RA, afebrile. We discussed risks, benefits and alternative treatment options, will hold on antidepressants as will worsen psychosis, increase risperidone to 1mg po daily and 2mg po qhs. will add some ativan for catatonic-like symptoms including blank stare, mutism (or minimal spontaneous speech with significant delayed in responses). PLAN 1. admit to s1, cv, 15 minutes checks 2. increase risperidone 1mg po daily and 2mg po qhs. Risperdal was increased to 2 mg p.o. b.i.d. on March 09. March 14 we are increasing up to 2 mg in the morning and 3 at night. On March 15 we are increasing to Risperdal 3 mg p.o. b.i.d. 3. obtain collateral information 4. aftercare planning. 5. Seroquel will increase up to 300 mg p.o. q.h.s. on March 10. 6. Increase trazodone at night for sleep on March 17. On March 18 we are increasing trazodone up to 150 p.o. q.h.s. 7. Family meeting today Reason for continued inpatient stay Substantial Risk for: inability to function, rapid decompensation and med/psych decompensation Time Spent With Patient Time: Total time managing care of this patient today ___20_ minutes.
[2024-03-18] MEDS: LORazepam 0.5 MG TABLET PO ×3 (09:13→20:46)
[2024-03-18 09:14] VITALS: BP 129/63
[2024-03-18] MEDS: Furosemide 20 MG TABLET PO (09:14)
[2024-03-18] MEDS: lisinopriL 5 MG TABLET PO (09:14)
[2024-03-18] MEDS: risperiDONE 3 MG TABLET PO ×2 (09:14→20:45)
[2024-03-18] MEDS: Atorvastatin Calcium 80 MG TABLET PO (09:15)
[2024-03-18] MEDS: Aspirin Enteric Coated 325 MG TABLET.DR PO ×2 (09:15→20:45)
[2024-03-18 20:00] VITALS: BP 117/62; PULSE 73; RESP 18; TEMP 36.6; O2SAT 95
[2024-03-18] MEDS: Mirabegron 50 MG TAB.ER.24H PO (20:45)
[2024-03-18] MEDS: traZODone HCL 50 MG TABLET 150 MG PO (20:45)
[2024-03-18] MEDS: QUEtiapine Fumarate 300 MG TABLET PO (20:45)
[2024-03-19] MEDS: Levothyroxine Sodium 88 MCG TABLET PO (05:45)
[2024-03-19] MEDS: Omeprazole 20 MG CAPSULE.DR PO (05:45)
[2024-03-19 08:00] VITALS: BP 117/68; PULSE 81; RESP 18; TEMP 36.5; O2SAT 96
[2024-03-19 09:08] VITALS: BP 117/68
[2024-03-19] MEDS: LORazepam 0.5 MG TABLET PO ×3 (09:08→21:43)
[2024-03-19] MEDS: Furosemide 20 MG TABLET PO (09:08)
[2024-03-19] MEDS: Atorvastatin Calcium 80 MG TABLET PO (09:08)
[2024-03-19] MEDS: Aspirin Enteric Coated 325 MG TABLET.DR PO ×2 (09:08→21:44)
[2024-03-19] MEDS: lisinopriL 5 MG TABLET PO (09:08)
[2024-03-19] MEDS: Milk of Magnesia 30 ML ORAL.SUSP PO (10:21)
[2024-03-19] MEDS: Acetaminophen 325 MG TABLET 650 MG PO (10:22)
--- NOTE | 2024-03-19 10:46 | HO.PSYCHPN ---
Subjective Subjective Date of Service: 03/19/24 Reason For Visit: Bipolar, anxiety, PTSD Subjective Notes: Conditional Voluntary Interim History: Pt slept all night. She reports feeling okay. She reports she is less anxious, no longer worried about being . She reports hearing some voices still but states she can't remember what the voices are saying. No SI/HI. She is visible on the unit. She is taking medications as prescribed. She received invega sustenna. Medication Compliance: Yes Review of Systems Review of Systems General: No fevers, malaise, unintentional weight loss HEENT: No blurred vision, diplopia. No sore throat, nasal congestion, rhinorrhea, sinus pain, ear pain Cardiovascular: No chest pain, palpitations, or leg edema Respiratory: +cough. No shortness of breath, wheezing GI: No abdominal pain, nausea, vomiting, diarrhea, constipation, melena, hematochezia : No dysuria, hematuria, increased urinary frequency, decreased urinary output MSK: No myalgia, back pain Neuro: No headaches, weakness, paresthesias Skin: No rashes or lesions Mental Status Exam Mental Status Exam Narrative: Appearance: wearing hospital gown, laying in bed, staring at ceiling, in NAD Behavior: minimally engaging due to underlying psychosis Psychomotor: some retardation noted Speech: mostly clear, delayed responses, minimally spontaneous TP: some derailment TC: feeling tired Mood: okay' Affect: constricted, mask-like facial expression SI: denies HI: denies VH/AH: internally preoccupied Delusions: paranoid delusions Insight/judgment: impaired x 2. memory/cog: alert, oriented x 3. not formally tested. Diagnostics Vital Signs (24Hr): Vital Signs - 24 hr 03/18/24 20:00 03/19/24 08:00 03/19/24 09:08 Temperature 97.8 F 97.7 F Pulse Rate 73 81 Respiratory Rate 18 18 Blood Pressure 117/62 117/68 117/68 Pulse Oximetry 95 96 Oxygen Delivery Method Room Air Room Air 03/19/24 09:08 Temperature Pulse Rate Respiratory Rate Blood Pressure 117/68 Pulse Oximetry Oxygen Delivery Method BMI result Body Mass Index 38.5 Labs 03/06/24 07:43 Medications Medications Current Medications Acetaminophen (Acetaminophen 325 Mg Tablet) 650 mg PO Q6H PRN PRN Reason: Headache/Pain Mild Scale (1-3) Last Admin: 03/19/24 10:22 Dose: 650 mg Al Hydroxide/Mg Hydroxide (Magnesium Hydrox/Alum Hydrox 30 Ml Oral.Susp) 30 ml PO Q6H PRN PRN Reason: Heartburn/Nausea Albuterol Sulfate (Albuterol Sulfate 90 Mcg 8 Gm Inhaler) 2 puff INHALE QID PRN PRN Reason: wheezing Aspirin (Aspirin Enteric Coated 325 Mg Tablet.) 325 mg PO BID [facility] Last Admin: 03/19/24 09:08 Dose: 325 mg Atorvastatin Calcium (Atorvastatin Calcium 80 Mg Tablet) 80 mg PO DAILY [facility] Last Admin: 03/19/24 09:08 Dose: 80 mg Furosemide (Furosemide 20 Mg Tablet) 20 mg PO DAILY [facility]; Protocol Last Admin: 03/19/24 09:08 Dose: 20 mg Guaifenesin (Guaifenesin 200 Mg/10 Ml 10 Ml Liquid) 10 ml PO Q4H PRN PRN Reason: Cough Last Admin: 03/07/24 08:29 Dose: 10 ml Hydroxyzine HCl (Hydroxyzine Hcl 25 Mg Tablet) 25 mg PO Q6H PRN PRN Reason: Anxiety Last Admin: 03/06/24 20:47 Dose: 25 mg Levothyroxine Sodium (Levothyroxine Sodium 88 Mcg Tablet) 88 mcg PO DAILY@0600 [facility] Last Admin: 03/19/24 05:45 Dose: 88 mcg Lisinopril (Lisinopril 5 Mg Tablet) 5 mg PO DAILY [facility]; Protocol Last Admin: 03/19/24 09:08 Dose: 5 mg Lorazepam (Lorazepam 0.5 Mg Tablet) 0.5 mg PO TID [facility] Last Admin: 03/19/24 09:08 Dose: 0.5 mg Magnesium Hydroxide (Milk Of Magnesia 30 Ml Oral.Susp) 30 ml PO DAILY PRN PRN Reason: Constipation Last Admin: 03/19/24 10:21 Dose: 30 ml Mirabegron (Mirabegron 50 Mg Tab.Er.24h) 50 mg PO BEDTIME [facility] Last Admin: 03/18/24 20:45 Dose: 50 mg Omeprazole (Omeprazole 20 Mg Capsule.) 20 mg PO DAILY@0630 [facility] Last Admin: 03/19/24 05:45 Dose: 20 mg Paliperidone Palmitate (Paliperidone Palmitate 234 Mg/1.5 Ml Syringe) 234 mg IM Q30D [facility] Quetiapine Fumarate (Quetiapine Fumarate 300 Mg Tablet) 300 mg PO BEDTIME [facility] Last Admin: 03/18/24 20:45 Dose: 300 mg Risperidone (Risperidone 3 Mg Tablet) 3 mg PO BEDTIME [facility] Last Admin: 03/18/24 20:45 Dose: 3 mg Trazodone HCl (Trazodone Hcl 50 Mg Tablet) 50 mg PO BEDTIME MRX1 PRN PRN Reason: Insomnia Last Admin: 03/08/24 21:22 Dose: 50 mg Trazodone HCl (Trazodone Hcl 50 Mg Tablet) 150 mg PO BEDTIME [facility] Last Admin: 03/18/24 20:45 Dose: 150 mg Allergies Allergies Allergy/AdvReac Type Severity Reaction Status Date / Time Penicillins Allergy Unknown Unknown Verified 03/05/24 22:11 Assessment & Plan Assessment & Plan (1) Schizoaffective disorder: Status: Acute Code(s): F25.9 - Schizoaffective disorder, unspecified Plan Ms. Pedro is a 68 year-old woman with hx of schizoaffective disorder who was assessed by [employer] [facility] at request of her outpatient psychiatrist, Dr. Natty Marte due to pt presenting as increasingly more paranoid and disorganized. She is covid positive. currently on isolation with no significant symptoms- no SOB, o2sat>96 on RA, afebrile. We discussed risks, benefits and alternative treatment options, will hold on antidepressants as will worsen psychosis, increase risperidone to 1mg po daily and 2mg po qhs. will add some ativan for catatonic-like symptoms including blank stare, mutism (or minimal spontaneous speech with significant delayed in responses). PLAN 1. admit to s1, cv, 15 minutes checks 2. increase risperidone 1mg po daily and 2mg po qhs. Risperdal was increased to 2 mg p.o. b.i.d. on March 09. March 14 we are increasing up to 2 mg in the morning and 3 at night. On March 15 we are increasing to Risperdal 3 mg p.o. b.i.d. 3. obtain collateral information 4. aftercare planning. 5. Seroquel will increase up to 300 mg p.o. q.h.s. on March 10. 6. Increase trazodone at night for sleep on March 17. On March 18 we are increasing trazodone up to 150 p.o. q.h.s. 7. Invega Sustenna 234mg IM received on 03/19. plan to taper off risperidone. Reason for continued inpatient stay Substantial Risk for: inability to function Time Spent With Patient Time: Total time managing care of this patient today ____ minutes.
--- NOTE | 2024-03-19 14:23 | PC.NURSE ---
Medicated with Tylenol 650 for c/o R shoulder pain at 1022 with good effect.
[2024-03-19] MEDS: Paliperidone Palmitate 234 MG/1.5 ML SYRINGE IM (15:32)
--- NOTE | 2024-03-19 15:35 | PC.NURSE ---
Patient received 234 mg/1.5 ml Invega Systenna IM in R deltoid 03/19/24 at 1537. Tolerated well.
[2024-03-19 20:00] VITALS: BP 120/67; PULSE 72; RESP 18; TEMP 36.6; O2SAT 94
[2024-03-19] MEDS: QUEtiapine Fumarate 300 MG TABLET PO (21:43)
[2024-03-19] MEDS: Mirabegron 50 MG TAB.ER.24H PO (21:43)
[2024-03-19] MEDS: traZODone HCL 50 MG TABLET 150 MG PO (21:44)
[2024-03-19] MEDS: risperiDONE 3 MG TABLET PO (21:44)
[2024-03-20] MEDS: Levothyroxine Sodium 88 MCG TABLET PO (06:23)
[2024-03-20] MEDS: Omeprazole 20 MG CAPSULE.DR PO (06:23)
[2024-03-20 08:20] VITALS: BP 115/70; PULSE 80; RESP 17; TEMP 36.2; O2SAT 96
[2024-03-20 08:23] VITALS: BP 115/70
[2024-03-20] MEDS: lisinopriL 5 MG TABLET PO (08:23)
[2024-03-20] MEDS: Aspirin Enteric Coated 325 MG TABLET.DR PO ×2 (08:23→20:26)
[2024-03-20] MEDS: Furosemide 20 MG TABLET PO (08:23)
[2024-03-20] MEDS: Atorvastatin Calcium 80 MG TABLET PO (08:23)
[2024-03-20] MEDS: LORazepam 0.5 MG TABLET PO ×3 (08:23→20:26)
--- NOTE | 2024-03-20 14:36 | HO.PSYCHPN ---
Subjective Subjective Date of Service: 03/20/24 Reason For Visit: Bipolar, anxiety, PTSD Subjective Notes: Conditional Voluntary Interim History: Patient cooperative on the unit not overly agitated has received Invega sustain a not grossly psychotic. Medication Compliance: Yes Mental Status Exam Mental Status Exam Narrative: Behavior: Superficially pleasant Psychomotor: some retardation noted Speech: mostly clear, delayed responses, minimally spontaneous TP: some disorganization TC: feeling t better Mood: okay' Affect: constricted, mask-like facial expression SI: denies HI: denies VH/AH: internally preoccupied Delusions: paranoid delusions Insight/judgment: impaired x 2. memory/cog: alert, oriented x 3. not formally tested. Diagnostics Vital Signs (24Hr): Vital Signs - 24 hr 03/19/24 20:00 03/20/24 08:20 03/20/24 08:23 Temperature 97.8 F 97.2 F Pulse Rate 72 80 Respiratory Rate 18 17 Blood Pressure 120/67 115/70 115/70 Pulse Oximetry 94 96 Oxygen Delivery Method Room Air Room Air 03/20/24 08:23 Temperature Pulse Rate Respiratory Rate Blood Pressure 115/70 Pulse Oximetry Oxygen Delivery Method BMI result Body Mass Index 38.5 Labs 03/06/24 07:43 Medications Medications Current Medications Acetaminophen (Acetaminophen 325 Mg Tablet) 650 mg PO Q6H PRN PRN Reason: Headache/Pain Mild Scale (1-3) Last Admin: 03/19/24 10:22 Dose: 650 mg Al Hydroxide/Mg Hydroxide (Magnesium Hydrox/Alum Hydrox 30 Ml Oral.Susp) 30 ml PO Q6H PRN PRN Reason: Heartburn/Nausea Albuterol Sulfate (Albuterol Sulfate 90 Mcg 8 Gm Inhaler) 2 puff INHALE QID PRN PRN Reason: wheezing Aspirin (Aspirin Enteric Coated 325 Mg Tablet.) 325 mg PO BID [facility] Last Admin: 03/20/24 08:23 Dose: 325 mg Atorvastatin Calcium (Atorvastatin Calcium 80 Mg Tablet) 80 mg PO DAILY [facility] Last Admin: 03/20/24 08:23 Dose: 80 mg Furosemide (Furosemide 20 Mg Tablet) 20 mg PO DAILY [facility]; Protocol Last Admin: 03/20/24 08:23 Dose: 20 mg Guaifenesin (Guaifenesin 200 Mg/10 Ml 10 Ml Liquid) 10 ml PO Q4H PRN PRN Reason: Cough Last Admin: 03/07/24 08:29 Dose: 10 ml Hydroxyzine HCl (Hydroxyzine Hcl 25 Mg Tablet) 25 mg PO Q6H PRN PRN Reason: Anxiety Last Admin: 03/06/24 20:47 Dose: 25 mg Levothyroxine Sodium (Levothyroxine Sodium 88 Mcg Tablet) 88 mcg PO DAILY@0600 [facility] Last Admin: 03/20/24 06:23 Dose: 88 mcg Lisinopril (Lisinopril 5 Mg Tablet) 5 mg PO DAILY [facility]; Protocol Last Admin: 03/20/24 08:23 Dose: 5 mg Lorazepam (Lorazepam 0.5 Mg Tablet) 0.5 mg PO TID [facility] Last Admin: 03/20/24 08:23 Dose: 0.5 mg Magnesium Hydroxide (Milk Of Magnesia 30 Ml Oral.Susp) 30 ml PO DAILY PRN PRN Reason: Constipation Last Admin: 03/19/24 10:21 Dose: 30 ml Mirabegron (Mirabegron 50 Mg Tab.Er.24h) 50 mg PO BEDTIME [facility] Last Admin: 03/19/24 21:43 Dose: 50 mg Omeprazole (Omeprazole 20 Mg Capsule.Dr) 20 mg PO DAILY@0630 [facility] Last Admin: 03/20/24 06:23 Dose: 20 mg Paliperidone Palmitate (Paliperidone Palmitate 234 Mg/1.5 Ml Syringe) 234 mg IM Q30D [facility] Last Admin: 03/19/24 15:32 Dose: 234 mg Quetiapine Fumarate (Quetiapine Fumarate 300 Mg Tablet) 300 mg PO BEDTIME [facility] Last Admin: 03/19/24 21:43 Dose: 300 mg Risperidone (Risperidone 3 Mg Tablet) 3 mg PO BEDTIME [facility] Last Admin: 03/19/24 21:44 Dose: 3 mg Trazodone HCl (Trazodone Hcl 50 Mg Tablet) 50 mg PO BEDTIME MRX1 PRN PRN Reason: Insomnia Last Admin: 03/08/24 21:22 Dose: 50 mg Trazodone HCl (Trazodone Hcl 50 Mg Tablet) 150 mg PO BEDTIME [facility] Last Admin: 03/19/24 21:44 Dose: 150 mg Allergies Allergies Allergy/AdvReac Type Severity Reaction Status Date / Time Penicillins Allergy Unknown Unknown Verified 03/05/24 22:11 Assessment & Plan Assessment & Plan (1) Schizoaffective disorder: Status: Acute Code(s): F25.9 - Schizoaffective disorder, unspecified Plan Ms. Pedro is a 68 year-old woman with hx of schizoaffective disorder who was assessed by [employer]ET[employer] STRATEGIST crisis at request of her outpatient psychiatrist, Dr. Natty Marte due to pt presenting as increasingly more paranoid and disorganized. She is covid positive. currently on isolation with no significant symptoms- no SOB, o2sat>96 on RA, afebrile. We discussed risks, benefits and alternative treatment options, will hold on antidepressants as will worsen psychosis, increase risperidone to 1mg po daily and 2mg po qhs. will add some ativan for catatonic-like symptoms including blank stare, mutism (or minimal spontaneous speech with significant delayed in responses). PLAN 1. admit to s1, cv, 15 minutes checks 2. increase risperidone 1mg po daily and 2mg po qhs. Risperdal was increased to 2 mg p.o. b.i.d. on March 09. March 14 we are increasing up to 2 mg in the morning and 3 at night. On March 15 we are increasing to Risperdal 3 mg p.o. b.i.d. 3. obtain collateral information 4. aftercare planning. 5. Seroquel will increase up to 300 mg p.o. q.h.s. on March 10. 6. Increase trazodone at night for sleep on March 17. On March 18 we are increasing trazodone up to 150 p.o. q.h.s. 7. Invega Sustenna 234mg IM received on 03/19. plan to taper off risperidone. 03/20/2024 Continue plan of care Would review need for Seroquel and Invega Reason for continued inpatient stay Substantial Risk for: inability to function and rapid decompensation Time Spent With Patient Time: Total time managing care of this patient today ____ minutes.
[2024-03-20 20:00] VITALS: BP 155/79; PULSE 71; RESP 18; TEMP 36.6; O2SAT 95
[2024-03-20] MEDS: traZODone HCL 50 MG TABLET 150 MG PO (20:26)
[2024-03-20] MEDS: risperiDONE 3 MG TABLET PO (20:26)
[2024-03-20] MEDS: QUEtiapine Fumarate 300 MG TABLET PO (20:26)
[2024-03-20] MEDS: Mirabegron 50 MG TAB.ER.24H PO (20:26)
[2024-03-20] MEDS: Acetaminophen 325 MG TABLET 650 MG PO (20:26)
[2024-03-20] MEDS: guaiFENesin 200 MG/10 ML 10 ML LIQUID PO (20:38)
[2024-03-21] MEDS: Omeprazole 20 MG CAPSULE.DR PO (05:51)
[2024-03-21] MEDS: Levothyroxine Sodium 88 MCG TABLET PO (05:51)
[2024-03-21 08:20] VITALS: BP 117/65; PULSE 75; RESP 17; TEMP 36.3; O2SAT 96
[2024-03-21 08:22] VITALS: BP 117/65
[2024-03-21] MEDS: lisinopriL 5 MG TABLET PO (08:22)
[2024-03-21] MEDS: Aspirin Enteric Coated 325 MG TABLET.DR PO ×2 (08:22→20:40)
[2024-03-21] MEDS: LORazepam 0.5 MG TABLET PO ×3 (08:22→20:40)
[2024-03-21] MEDS: Atorvastatin Calcium 80 MG TABLET PO (08:22)
[2024-03-21] MEDS: Furosemide 20 MG TABLET PO (08:22)
[2024-03-21] MEDS: Acetaminophen 325 MG TABLET 650 MG PO (08:29)
[2024-03-21 20:00] VITALS: BP 147/88; PULSE 71; RESP 18; TEMP 36.3; O2SAT 96
[2024-03-21] MEDS: traZODone HCL 50 MG TABLET 150 MG PO (20:40)
[2024-03-21] MEDS: QUEtiapine Fumarate 300 MG TABLET PO (20:40)
[2024-03-21] MEDS: risperiDONE 3 MG TABLET PO (20:40)
[2024-03-21] MEDS: Mirabegron 50 MG TAB.ER.24H PO (20:40)
[2024-03-21] MEDS: guaiFENesin 200 MG/10 ML 10 ML LIQUID PO (20:43)
--- NOTE | 2024-03-21 22:26 | HO.PSYCHPN ---
Subjective Subjective Date of Service: 03/21/24 Reason For Visit: Bipolar, anxiety, PTSD Subjective Notes: Conditional Voluntary Interim History: Patient cooperative on the unit not overly agitated has received Invega sustain a not grossly psychotic. Patient appears generally much more stable Medication Compliance: Yes Mental Status Exam Mental Status Exam Patient Appearance: Appropriate Patient Orientation: Person and Situation Level of Consciousness: Awake and Appropriate Patient Behavior: Guarded and Passive Mood Description: Withdrawn Affect Description: Blunted Patient Cognition Impaired: Yes Ability to Follow Directions: Good Speech Pattern: Clear Hallucinations: None Delusions: Paranoid Ideation and Ideas of Reference Thought Process: Distracted and Slowed Thinking Thought Content: positive for [place] and positive for Thought Blocking Judgement: Poor Diagnostics Vital Signs (24Hr): Vital Signs - 24 hr 03/21/24 08:20 03/21/24 08:22 03/21/24 08:22 Temperature 97.4 F Pulse Rate 75 Respiratory Rate 17 Blood Pressure 117/65 117/65 117/65 Pulse Oximetry 96 Oxygen Delivery Method 03/21/24 20:00 Temperature 97.4 F Pulse Rate 71 Respiratory Rate 18 Blood Pressure 147/88 H Pulse Oximetry 96 Oxygen Delivery Method Room Air BMI result Body Mass Index 38.5 Labs 03/06/24 07:43 Medications Medications Current Medications Acetaminophen (Acetaminophen 325 Mg Tablet) 650 mg PO Q6H PRN PRN Reason: Headache/Pain Mild Scale (1-3) Last Admin: 03/21/24 08:29 Dose: 650 mg Al Hydroxide/Mg Hydroxide (Magnesium Hydrox/Alum Hydrox 30 Ml Oral.Susp) 30 ml PO Q6H PRN PRN Reason: Heartburn/Nausea Albuterol Sulfate (Albuterol Sulfate 90 Mcg 8 Gm Inhaler) 2 puff INHALE QID PRN PRN Reason: wheezing Aspirin (Aspirin Enteric Coated 325 Mg Tablet.Dr) 325 mg PO BID [facility] Last Admin: 03/21/24 20:40 Dose: 325 mg Atorvastatin Calcium (Atorvastatin Calcium 80 Mg Tablet) 80 mg PO DAILY [facility] Last Admin: 03/21/24 08:22 Dose: 80 mg Furosemide (Furosemide 20 Mg Tablet) 20 mg PO DAILY [facility]; Protocol Last Admin: 03/21/24 08:22 Dose: 20 mg Guaifenesin (Guaifenesin 200 Mg/10 Ml 10 Ml Liquid) 10 ml PO Q4H PRN PRN Reason: Cough Last Admin: 03/21/24 20:43 Dose: 10 ml Hydroxyzine HCl (Hydroxyzine Hcl 25 Mg Tablet) 25 mg PO Q6H PRN PRN Reason: Anxiety Last Admin: 03/06/24 20:47 Dose: 25 mg Levothyroxine Sodium (Levothyroxine Sodium 88 Mcg Tablet) 88 mcg PO DAILY@0600 [facility] Last Admin: 03/21/24 05:51 Dose: 88 mcg Lisinopril (Lisinopril 5 Mg Tablet) 5 mg PO DAILY [facility]; Protocol Last Admin: 03/21/24 08:22 Dose: 5 mg Lorazepam (Lorazepam 0.5 Mg Tablet) 0.5 mg PO TID [facility] Last Admin: 03/21/24 20:40 Dose: 0.5 mg Magnesium Hydroxide (Milk Of Magnesia 30 Ml Oral.Susp) 30 ml PO DAILY PRN PRN Reason: Constipation Last Admin: 03/19/24 10:21 Dose: 30 ml Mirabegron (Mirabegron 50 Mg Tab.Er.24h) 50 mg PO BEDTIME [facility] Last Admin: 03/21/24 20:40 Dose: 50 mg Omeprazole (Omeprazole 20 Mg Capsule.Dr) 20 mg PO DAILY@0630 [facility] Last Admin: 03/21/24 05:51 Dose: 20 mg Paliperidone Palmitate (Paliperidone Palmitate 234 Mg/1.5 Ml Syringe) 234 mg IM Q30D [facility] Last Admin: 03/19/24 15:32 Dose: 234 mg Quetiapine Fumarate (Quetiapine Fumarate 300 Mg Tablet) 300 mg PO BEDTIME [facility] Last Admin: 03/21/24 20:40 Dose: 300 mg Risperidone (Risperidone 3 Mg Tablet) 3 mg PO BEDTIME [facility] Last Admin: 03/21/24 20:40 Dose: 3 mg Trazodone HCl (Trazodone Hcl 50 Mg Tablet) 50 mg PO BEDTIME MRX1 PRN PRN Reason: Insomnia Last Admin: 03/08/24 21:22 Dose: 50 mg Trazodone HCl (Trazodone Hcl 50 Mg Tablet) 150 mg PO BEDTIME [facility] Last Admin: 03/21/24 20:40 Dose: 150 mg Allergies Allergies Allergy/AdvReac Type Severity Reaction Status Date / Time Penicillins Allergy Unknown Unknown Verified 03/05/24 22:11 Assessment & Plan Assessment & Plan (1) Schizoaffective disorder: Status: Acute Code(s): F25.9 - Schizoaffective disorder, unspecified Plan Ms. Pedro is a 68 year-old woman with hx of schizoaffective disorder who was assessed by [employer] PERFORMANCE TECHNOLOGIST crisis at request of her outpatient psychiatrist, Dr. Natty Marte due to pt presenting as increasingly more paranoid and disorganized. She is covid positive. currently on isolation with no significant symptoms- no SOB, o2sat>96 on RA, afebrile. We discussed risks, benefits and alternative treatment options, will hold on antidepressants as will worsen psychosis, increase risperidone to 1mg po daily and 2mg po qhs. will add some ativan for catatonic-like symptoms including blank stare, mutism (or minimal spontaneous speech with significant delayed in responses). PLAN 1. admit to s1, cv, 15 minutes checks 2. increase risperidone 1mg po daily and 2mg po qhs. Risperdal was increased to 2 mg p.o. b.i.d. on March 09. March 14 we are increasing up to 2 mg in the morning and 3 at night. On March 15 we are increasing to Risperdal 3 mg p.o. b.i.d. 3. obtain collateral information 4. aftercare planning. 5. Seroquel will increase up to 300 mg p.o. q.h.s. on March 10. 6. Increase trazodone at night for sleep on March 17. On March 18 we are increasing trazodone up to 150 p.o. q.h.s. 7. Invega Sustenna 234mg IM received on 03/19. plan to taper off risperidone. 03/20/2024 Continue plan of care Would review need for Seroquel and Invega 03/21/2024 Continue plan care Reason for continued inpatient stay Substantial Risk for: inability to function and rapid decompensation Time Spent With Patient Time: Total time managing care of this patient today ____ minutes.
[2024-03-22] MEDS: Omeprazole 20 MG CAPSULE.DR PO (05:41)
[2024-03-22] MEDS: Levothyroxine Sodium 88 MCG TABLET PO (05:41)
[2024-03-22 08:00] VITALS: BP 161/85; PULSE 82; RESP 17; TEMP 36.5; O2SAT 96
[2024-03-22] MEDS: Milk of Magnesia 30 ML ORAL.SUSP PO (08:26)
[2024-03-22] MEDS: Atorvastatin Calcium 80 MG TABLET PO (08:26)
[2024-03-22 08:27] VITALS: BP 161/85
[2024-03-22] MEDS: Furosemide 20 MG TABLET PO (08:27)
[2024-03-22] MEDS: lisinopriL 5 MG TABLET PO (08:27)
[2024-03-22] MEDS: LORazepam 0.5 MG TABLET PO ×3 (08:27→20:25)
[2024-03-22] MEDS: Aspirin Enteric Coated 325 MG TABLET.DR PO ×2 (08:28→20:25)
--- NOTE | 2024-03-22 14:13 | P.PNPSI_ITS ---
Subjective Subjective Date of Service: 03/22/24 Reason For Visit: Bipolar, anxiety, PTSD Subjective Notes: Conditional Voluntary Interim History: The nursing staff reported the patient had been withdrawn and guarded flat but pleasant. She slept 8 hours. The occupational therapist reported that she score 4.8 on the Florentino test. On interview the patient reports over-sedation we are discontinuing Risperdal p.o. and keep it only on Invega Sustenna. We will monitor her improvement. Mental Status Exam Mental Status Exam Patient Appearance: Appropriate Patient Orientation: Person and Situation Level of Consciousness: Awake and Appropriate Patient Behavior: Guarded and Passive Mood Description: Withdrawn Affect Description: Constricted Patient Cognition Impaired: Yes Ability to Follow Directions: Good Speech Pattern: Clear Hallucinations: None Delusions: Paranoid Ideation Thought Process: Distracted Thought Content: positive for [place] and positive for Poverty of Content Judgement: Fair Diagnostics Vital Signs (24Hr): Vital Signs - 24 hr 03/21/24 20:00 03/22/24 08:00 03/22/24 08:27 Temperature 97.4 F 97.7 F Pulse Rate 71 82 Respiratory Rate 18 17 Blood Pressure 147/88 H 161/85 H 161/85 H Pulse Oximetry 96 96 Oxygen Delivery Method Room Air Room Air 03/22/24 08:27 Temperature Pulse Rate Respiratory Rate Blood Pressure 161/85 H Pulse Oximetry Oxygen Delivery Method BMI result Body Mass Index 38.5 Labs 03/06/24 07:43 Medications Medications Current Medications Acetaminophen (Acetaminophen 325 Mg Tablet) 650 mg PO Q6H PRN PRN Reason: Headache/Pain Mild Scale (1-3) Last Admin: 03/21/24 08:29 Dose: 650 mg Al Hydroxide/Mg Hydroxide (Magnesium Hydrox/Alum Hydrox 30 Ml Oral.Susp) 30 ml PO Q6H PRN PRN Reason: Heartburn/Nausea Albuterol Sulfate (Albuterol Sulfate 90 Mcg 8 Gm Inhaler) 2 puff INHALE QID PRN PRN Reason: wheezing Aspirin (Aspirin Enteric Coated 325 Mg Tablet.) 325 mg PO BID [facility] Last Admin: 03/22/24 08:28 Dose: 325 mg Atorvastatin Calcium (Atorvastatin Calcium 80 Mg Tablet) 80 mg PO DAILY [facility] Last Admin: 03/22/24 08:26 Dose: 80 mg Furosemide (Furosemide 20 Mg Tablet) 20 mg PO DAILY [facility]; Protocol Last Admin: 03/22/24 08:27 Dose: 20 mg Guaifenesin (Guaifenesin 200 Mg/10 Ml 10 Ml Liquid) 10 ml PO Q4H PRN PRN Reason: Cough Last Admin: 03/21/24 20:43 Dose: 10 ml Hydroxyzine HCl (Hydroxyzine Hcl 25 Mg Tablet) 25 mg PO Q6H PRN PRN Reason: Anxiety Last Admin: 03/06/24 20:47 Dose: 25 mg Levothyroxine Sodium (Levothyroxine Sodium 88 Mcg Tablet) 88 mcg PO DAILY@0600 [facility] Last Admin: 03/22/24 05:41 Dose: 88 mcg Lisinopril (Lisinopril 5 Mg Tablet) 5 mg PO DAILY [facility]; Protocol Last Admin: 03/22/24 08:27 Dose: 5 mg Lorazepam (Lorazepam 0.5 Mg Tablet) 0.5 mg PO TID [facility] Last Admin: 03/22/24 08:27 Dose: 0.5 mg Magnesium Hydroxide (Milk Of Magnesia 30 Ml Oral.Susp) 30 ml PO DAILY PRN PRN Reason: Constipation Last Admin: 03/22/24 08:26 Dose: 30 ml Mirabegron (Mirabegron 50 Mg Tab.Er.24h) 50 mg PO BEDTIME [facility] Last Admin: 03/21/24 20:40 Dose: 50 mg Omeprazole (Omeprazole 20 Mg Capsule.Dr) 20 mg PO DAILY@0630 [facility] Last Admin: 03/22/24 05:41 Dose: 20 mg Paliperidone Palmitate (Paliperidone Palmitate 234 Mg/1.5 Ml Syringe) 234 mg IM Q30D [facility] Last Admin: 03/19/24 15:32 Dose: 234 mg Quetiapine Fumarate (Quetiapine Fumarate 300 Mg Tablet) 300 mg PO BEDTIME [facility] Last Admin: 03/21/24 20:40 Dose: 300 mg Trazodone HCl (Trazodone Hcl 50 Mg Tablet) 50 mg PO BEDTIME MRX1 PRN PRN Reason: Insomnia Last Admin: 03/08/24 21:22 Dose: 50 mg Trazodone HCl (Trazodone Hcl 50 Mg Tablet) 150 mg PO BEDTIME [facility] Last Admin: 03/21/24 20:40 Dose: 150 mg Allergies Allergies Allergy/AdvReac Type Severity Reaction Status Date / Time Penicillins Allergy Unknown Unknown Verified 03/05/24 22:11 Assessment & Plan Assessment & Plan (1) Schizoaffective disorder: Status: Acute Code(s): F25.9 - Schizoaffective disorder, unspecified Plan Ms. Pedro is a 68 year-old woman with hx of schizoaffective disorder who was assessed by [employer] crisis at request of her outpatient psychiatrist, Dr. Natty Marte due to pt presenting as increasingly more paranoid and disorganized. She is covid positive. currently on isolation with no significant symptoms- no SOB, o2sat>96 on RA, afebrile. We discussed risks, benefits and alternative treatment options, will hold on antidepressants as will worsen psychosis, increase risperidone to 1mg po daily and 2mg po qhs. will add some ativan for catatonic- like symptoms including blank stare, mutism (or minimal spontaneous speech with significant delayed in responses). PLAN 1. admit to s1, cv, 15 minutes checks 2. increase risperidone 1mg po daily and 2mg po qhs. Risperdal was increased to 2 mg p.o. b.i.d. on March 09. March 14 we are increasing up to 2 mg in the morning and 3 at night. On March 15 we are increasing to Risperdal 3 mg p.o. b.i.d. 3. obtain collateral information 4. aftercare planning. 5. Seroquel will increase up to 300 mg p.o. q.h.s. on March 10. 6. Increase trazodone at night for sleep on March 17. On March 18 we are increasing trazodone up to 150 p.o. q.h.s. 7. Invega Sustenna 234mg IM received on 03/19. plan to taper off risperidone. 8. Discontinue Risperdal p.o. on March 22. Reason for continued inpatient stay Substantial Risk for: inability to function, rapid decompensation and med/psych decompensation Time Spent With Patient Time: Total time managing care of this patient today _20___ minutes.
[2024-03-22] MEDS: hydrOXYzine HCL 25 MG TABLET PO (15:16)
[2024-03-22 20:00] VITALS: BP 114/68; PULSE 75; RESP 18; TEMP 36.2; O2SAT 96
[2024-03-22] MEDS: Mirabegron 50 MG TAB.ER.24H PO (20:25)
[2024-03-22] MEDS: QUEtiapine Fumarate 300 MG TABLET PO (20:25)
[2024-03-22] MEDS: traZODone HCL 50 MG TABLET 150 MG PO (20:25)
[2024-03-23] MEDS: Levothyroxine Sodium 88 MCG TABLET PO (05:41)
[2024-03-23] MEDS: Omeprazole 20 MG CAPSULE.DR PO (05:41)
[2024-03-23 08:14] VITALS: BP 127/64; PULSE 72; RESP 18; TEMP 36.1; O2SAT 95
[2024-03-23] MEDS: Milk of Magnesia 30 ML ORAL.SUSP PO (09:06)
[2024-03-23] MEDS: lisinopriL 5 MG TABLET PO (09:06)
[2024-03-23] MEDS: LORazepam 0.5 MG TABLET PO ×3 (09:06→21:28)
[2024-03-23] MEDS: Furosemide 20 MG TABLET PO (09:06)
[2024-03-23] MEDS: Atorvastatin Calcium 80 MG TABLET PO (09:07)
[2024-03-23] MEDS: Aspirin Enteric Coated 325 MG TABLET.DR PO ×2 (09:07→21:29)
--- NOTE | 2024-03-23 12:33 | P.PNPSI_ITS ---
Subjective Subjective Date of Service: 03/23/24 Reason For Visit: Bipolar, anxiety, PTSD Subjective Notes: Conditional Voluntary Interim History: The nursing staff reported that she has been compliant with treatment. She was seen in the community areas, blunted and internally preoccupied but able to participate in groups. So far, she looks more organized and not responding to internal stimuli. On interview, she denied psychotic symptoms, we have disconstinued Risperdal PO since she is on Invega Sustenna. Mental Status Exam Mental Status Exam Patient Appearance: Well Grooomed and Appropriate Patient Orientation: Person and Situation Level of Consciousness: Awake and Appropriate Patient Behavior: Appropriate and Cooperative Mood Description: Withdrawn Affect Description: Constricted Patient Cognition Impaired: Yes Ability to Follow Directions: Good Speech Pattern: Clear Hallucinations: None Delusions: Paranoid Ideation and Ideas of Reference Thought Process: Distracted and Slowed Thinking Thought Content: positive for [place] and positive for Circumstantial Judgement: Fair Diagnostics Vital Signs (24Hr): Vital Signs - 24 hr 03/22/24 20:00 03/23/24 08:14 Temperature 97.2 F 97 F Pulse Rate 75 72 Respiratory Rate 18 18 Blood Pressure 114/68 127/64 Pulse Oximetry 96 95 Oxygen Delivery Method Room Air Room Air BMI result Body Mass Index 38.5 Labs 03/06/24 07:43 Medications Medications Current Medications Acetaminophen (Acetaminophen 325 Mg Tablet) 650 mg PO Q6H PRN PRN Reason: Headache/Pain Mild Scale (1-3) Last Admin: 03/21/24 08:29 Dose: 650 mg Al Hydroxide/Mg Hydroxide (Magnesium Hydrox/Alum Hydrox 30 Ml Oral.Susp) 30 ml PO Q6H PRN PRN Reason: Heartburn/Nausea Albuterol Sulfate (Albuterol Sulfate 90 Mcg 8 Gm Inhaler) 2 puff INHALE QID PRN PRN Reason: wheezing Aspirin (Aspirin Enteric Coated 325 Mg Tablet.) 325 mg PO BID [facility] Last Admin: 03/23/24 09:07 Dose: 325 mg Atorvastatin Calcium (Atorvastatin Calcium 80 Mg Tablet) 80 mg PO DAILY [facility] Last Admin: 03/23/24 09:07 Dose: 80 mg Docusate Sodium (Docusate Sodium 100 Mg Capsule) 100 mg PO BID PRN PRN Reason: Constipation Furosemide (Furosemide 20 Mg Tablet) 20 mg PO DAILY [facility]; Protocol Last Admin: 03/23/24 09:06 Dose: 20 mg Guaifenesin (Guaifenesin 200 Mg/10 Ml 10 Ml Liquid) 10 ml PO Q4H PRN PRN Reason: Cough Last Admin: 03/21/24 20:43 Dose: 10 ml Hydroxyzine HCl (Hydroxyzine Hcl 25 Mg Tablet) 25 mg PO Q6H PRN PRN Reason: Anxiety Last Admin: 03/22/24 15:16 Dose: 25 mg Levothyroxine Sodium (Levothyroxine Sodium 88 Mcg Tablet) 88 mcg PO DAILY@0600 [facility] Last Admin: 03/23/24 05:41 Dose: 88 mcg Lisinopril (Lisinopril 5 Mg Tablet) 5 mg PO DAILY [facility]; Protocol Last Admin: 03/23/24 09:06 Dose: 5 mg Lorazepam (Lorazepam 0.5 Mg Tablet) 0.5 mg PO TID [facility] Last Admin: 03/23/24 09:06 Dose: 0.5 mg Magnesium Hydroxide (Milk Of Magnesia 30 Ml Oral.Susp) 30 ml PO DAILY PRN PRN Reason: Constipation Last Admin: 03/23/24 09:06 Dose: 30 ml Mirabegron (Mirabegron 50 Mg Tab.Er.24h) 50 mg PO BEDTIME [facility] Last Admin: 03/22/24 20:25 Dose: 50 mg Omeprazole (Omeprazole 20 Mg Capsule.Dr) 20 mg PO DAILY@0630 [facility] Last Admin: 03/23/24 05:41 Dose: 20 mg Paliperidone Palmitate (Paliperidone Palmitate 234 Mg/1.5 Ml Syringe) 234 mg IM Q30D [facility] Last Admin: 03/19/24 15:32 Dose: 234 mg Quetiapine Fumarate (Quetiapine Fumarate 300 Mg Tablet) 300 mg PO BEDTIME [facility] Last Admin: 03/22/24 20:25 Dose: 300 mg Trazodone HCl (Trazodone Hcl 50 Mg Tablet) 50 mg PO BEDTIME MRX1 PRN PRN Reason: Insomnia Last Admin: 03/08/24 21:22 Dose: 50 mg Trazodone HCl (Trazodone Hcl 50 Mg Tablet) 150 mg PO BEDTIME [facility] Last Admin: 03/22/24 20:25 Dose: 150 mg Allergies Allergies Allergy/AdvReac Type Severity Reaction Status Date / Time Penicillins Allergy Unknown Unknown Verified 03/05/24 22:11 Assessment & Plan Assessment & Plan (1) Schizoaffective disorder: Status: Acute Code(s): F25.9 - Schizoaffective disorder, unspecified Plan Ms. Pedro is a 68 year-old woman with hx of schizoaffective disorder who was assessed by [employer] crisis at request of her outpatient psychiatrist, Dr. Natty Marte due to pt presenting as increasingly more paranoid and disorganized. She is covid positive. currently on isolation with no significant symptoms- no SOB, o2sat>96 on RA, afebrile. We discussed risks, benefits and alternative treatment options, will hold on antidepressants as will worsen psychosis, increase risperidone to 1mg po daily and 2mg po qhs. will add some ativan for catatonic- like symptoms including blank stare, mutism (or minimal spontaneous speech with significant delayed in responses). PLAN 1. admit to s1, cv, 15 minutes checks 2. increase risperidone 1mg po daily and 2mg po qhs. Risperdal was increased to 2 mg p.o. b.i.d. on March 09. March 14 we are increasing up to 2 mg in the morning and 3 at night. On March 15 we are increasing to Risperdal 3 mg p.o. b.i.d. 3. obtain collateral information 4. aftercare planning. 5. Seroquel will increase up to 300 mg p.o. q.h.s. on March 10. 6. Increase trazodone at night for sleep on March 17. On March 18 we are increasing trazodone up to 150 p.o. q.h.s. 7. Invega Sustenna 234mg IM received on 03/19. plan to taper off risperidone. 8. Discontinue Risperdal p.o. on March 22. Reason for continued inpatient stay Substantial Risk for: inability to function, rapid decompensation and med/psych decompensation Time Spent With Patient Time: Total time managing care of this patient today _20___ minutes.
[2024-03-23 20:00] VITALS: BP 121/63; PULSE 63; RESP 18; TEMP 36.6; O2SAT 97
[2024-03-23] MEDS: traZODone HCL 50 MG TABLET 150 MG PO (21:28)
[2024-03-23] MEDS: Mirabegron 50 MG TAB.ER.24H PO (21:29)
[2024-03-23] MEDS: QUEtiapine Fumarate 300 MG TABLET PO (21:29)
[2024-03-24] MEDS: Levothyroxine Sodium 88 MCG TABLET PO (05:59)
[2024-03-24] MEDS: Omeprazole 20 MG CAPSULE.DR PO (05:59)
[2024-03-24 08:00] VITALS: BP 153/63; PULSE 73; RESP 18; TEMP 36.1; O2SAT 94
[2024-03-24] MEDS: Aspirin Enteric Coated 325 MG TABLET.DR PO ×2 (08:29→20:46)
[2024-03-24] MEDS: Furosemide 20 MG TABLET PO (08:29)
[2024-03-24] MEDS: lisinopriL 5 MG TABLET PO (08:29)
[2024-03-24] MEDS: LORazepam 0.5 MG TABLET PO ×3 (08:29→20:46)
[2024-03-24] MEDS: Atorvastatin Calcium 80 MG TABLET PO (08:30)
[2024-03-24] MEDS: Acetaminophen 325 MG TABLET 650 MG PO (08:34)
--- NOTE | 2024-03-24 12:44 | HO.PSYCHPN ---
Subjective Subjective Date of Service: 03/24/24 Reason For Visit: Bipolar, anxiety, PTSD Subjective Notes: Conditional Voluntary Interim History: The nursing staff reported the patient had been visible in the unit, she ate 100% of her meals. She had attend to all the groups and she slept well. She disclosed to the staff that she is still hearing voices sporadically. On interview the patient has a brighter affect, she looks with an improved her psychosis but still with some symptoms. We are going to add a 2nd dose of Invega on Friday. Mental Status Exam Mental Status Exam Patient Appearance: Appropriate Patient Orientation: Person and Situation Level of Consciousness: Awake and Appropriate Patient Behavior: Guarded, Passive and Suspicious Mood Description: Withdrawn Affect Description: Constricted Patient Cognition Impaired: Yes Ability to Follow Directions: Good Speech Pattern: Clear Hallucinations: None Delusions: Paranoid Ideation and Ideas of Reference Thought Process: Distracted and Slowed Thinking Thought Content: positive for [place], positive for Poverty of Content and positive for Thought Blocking Judgement: Poor Diagnostics Vital Signs (24Hr): Vital Signs - 24 hr 03/23/24 20:00 03/24/24 08:00 Temperature 97.8 F 97 F Pulse Rate 63 73 Respiratory Rate 18 18 Blood Pressure 121/63 153/63 H Pulse Oximetry 97 94 Oxygen Delivery Method Room Air Room Air BMI result Body Mass Index 38.5 Labs 03/06/24 07:43 Medications Medications Current Medications Acetaminophen (Acetaminophen 325 Mg Tablet) 650 mg PO Q6H PRN PRN Reason: Headache/Pain Mild Scale (1-3) Last Admin: 03/24/24 08:34 Dose: 650 mg Al Hydroxide/Mg Hydroxide (Magnesium Hydrox/Alum Hydrox 30 Ml Oral.Susp) 30 ml PO Q6H PRN PRN Reason: Heartburn/Nausea Albuterol Sulfate (Albuterol Sulfate 90 Mcg 8 Gm Inhaler) 2 puff INHALE QID PRN PRN Reason: wheezing Aspirin (Aspirin Enteric Coated 325 Mg Tablet.) 325 mg PO BID [facility] Last Admin: 03/24/24 08:29 Dose: 325 mg Atorvastatin Calcium (Atorvastatin Calcium 80 Mg Tablet) 80 mg PO DAILY [facility] Last Admin: 03/24/24 08:30 Dose: 80 mg Docusate Sodium (Docusate Sodium 100 Mg Capsule) 100 mg PO BID PRN PRN Reason: Constipation Furosemide (Furosemide 20 Mg Tablet) 20 mg PO DAILY [facility]; Protocol Last Admin: 03/24/24 08:29 Dose: 20 mg Guaifenesin (Guaifenesin 200 Mg/10 Ml 10 Ml Liquid) 10 ml PO Q4H PRN PRN Reason: Cough Last Admin: 03/21/24 20:43 Dose: 10 ml Hydroxyzine HCl (Hydroxyzine Hcl 25 Mg Tablet) 25 mg PO Q6H PRN PRN Reason: Anxiety Last Admin: 03/22/24 15:16 Dose: 25 mg Levothyroxine Sodium (Levothyroxine Sodium 88 Mcg Tablet) 88 mcg PO DAILY@0600 [facility] Last Admin: 03/24/24 05:59 Dose: 88 mcg Lisinopril (Lisinopril 5 Mg Tablet) 5 mg PO DAILY [facility]; Protocol Last Admin: 03/24/24 08:29 Dose: 5 mg Lorazepam (Lorazepam 0.5 Mg Tablet) 0.5 mg PO TID [facility] Last Admin: 03/24/24 08:29 Dose: 0.5 mg Magnesium Hydroxide (Milk Of Magnesia 30 Ml Oral.Susp) 30 ml PO DAILY PRN PRN Reason: Constipation Last Admin: 03/23/24 09:06 Dose: 30 ml Mirabegron (Mirabegron 50 Mg Tab.Er.24h) 50 mg PO BEDTIME [facility] Last Admin: 03/23/24 21:29 Dose: 50 mg Omeprazole (Omeprazole 20 Mg Capsule.Dr) 20 mg PO DAILY@0630 [facility] Last Admin: 03/24/24 05:59 Dose: 20 mg Paliperidone Palmitate (Paliperidone Palmitate 234 Mg/1.5 Ml Syringe) 234 mg IM Q30D [facility] Last Admin: 03/19/24 15:32 Dose: 234 mg Quetiapine Fumarate (Quetiapine Fumarate 300 Mg Tablet) 300 mg PO BEDTIME [facility] Last Admin: 03/23/24 21:29 Dose: 300 mg Trazodone HCl (Trazodone Hcl 50 Mg Tablet) 50 mg PO BEDTIME MRX1 PRN PRN Reason: Insomnia Last Admin: 03/08/24 21:22 Dose: 50 mg Trazodone HCl (Trazodone Hcl 50 Mg Tablet) 150 mg PO BEDTIME [facility] Last Admin: 03/23/24 21:28 Dose: 150 mg Allergies Allergies Allergy/AdvReac Type Severity Reaction Status Date / Time Penicillins Allergy Unknown Unknown Verified 03/05/24 22:11 Assessment & Plan Assessment & Plan (1) Schizoaffective disorder: Status: Acute Code(s): F25.9 - Schizoaffective disorder, unspecified Plan Ms. Pedro is a 68 year-old woman with hx of schizoaffective disorder who was assessed by [employer] crisis at request of her outpatient psychiatrist, Dr. Natty Marte due to pt presenting as increasingly more paranoid and disorganized. She is covid positive. currently on isolation with no significant symptoms- no SOB, o2sat>96 on RA, afebrile. We discussed risks, benefits and alternative treatment options, will hold on antidepressants as will worsen psychosis, increase risperidone to 1mg po daily and 2mg po qhs. will add some ativan for catatonic-like symptoms including blank stare, mutism (or minimal spontaneous speech with significant delayed in responses). PLAN 1. admit to s1, cv, 15 minutes checks 2. increase risperidone 1mg po daily and 2mg po qhs. Risperdal was increased to 2 mg p.o. b.i.d. on March 09. March 14 we are increasing up to 2 mg in the morning and 3 at night. On March 15 we are increasing to Risperdal 3 mg p.o. b.i.d. 3. obtain collateral information 4. aftercare planning. 5. Seroquel will increase up to 300 mg p.o. q.h.s. on March 10. 6. Increase trazodone at night for sleep on March 17. On March 18 we are increasing trazodone up to 150 p.o. q.h.s. 7. Invega Sustenna 234mg IM received on 03/19. plan to taper off risperidone. 8. Discontinue Risperdal p.o. on March 22. Reason for continued inpatient stay Substantial Risk for: inability to function, rapid decompensation and med/psych decompensation Time Spent With Patient Time: Total time managing care of this patient today __20__ minutes.
[2024-03-24 20:00] VITALS: BP 116/62; PULSE 71; RESP 16; TEMP 36.2; O2SAT 95
[2024-03-24] MEDS: QUEtiapine Fumarate 300 MG TABLET PO (20:46)
[2024-03-24] MEDS: traZODone HCL 50 MG TABLET 150 MG PO (20:46)
[2024-03-24] MEDS: Mirabegron 50 MG TAB.ER.24H PO (20:47)
[2024-03-25] MEDS: Omeprazole 20 MG CAPSULE.DR PO (06:10)
[2024-03-25] MEDS: Levothyroxine Sodium 88 MCG TABLET PO (06:10)
[2024-03-25 07:00] VITALS: BMI 39.8
[2024-03-25 08:00] VITALS: BP 179/77; PULSE 74; RESP 18; TEMP 36.3; O2SAT 94
[2024-03-25 09:32] VITALS: BP 189/77
[2024-03-25] MEDS: LORazepam 0.5 MG TABLET PO ×3 (09:32→20:40)
[2024-03-25] MEDS: Atorvastatin Calcium 80 MG TABLET PO (09:32)
[2024-03-25] MEDS: lisinopriL 5 MG TABLET PO (09:32)
[2024-03-25 09:33] VITALS: BP 189/77
[2024-03-25] MEDS: Aspirin Enteric Coated 325 MG TABLET.DR PO ×2 (09:33→20:40)
[2024-03-25] MEDS: Furosemide 20 MG TABLET PO (09:33)
[2024-03-25] MEDS: Paliperidone Palmitate 156 MG/ML SYRINGE IM (09:34)
--- NOTE | 2024-03-25 09:46 | PC.NURSE ---
Patient received Invega Sustenna 156 mg IM R Deltoid.
--- NOTE | 2024-03-25 13:06 | P.PNPSI_ITS ---
Subjective Subjective Date of Service: 03/25/24 Reason For Visit: Bipolar, anxiety, PTSD Subjective Notes: Conditional Voluntary Interim History: The nursing staff reported the patient had been fully compliant with treatment, she showed a flat affect but she had been eating well and she had been visible in the unit. The occupational therapy reported that she is very good at groups and her affect is brighter. On interview the patient reports that she has sporadic auditory hallucinations stating that her son is but she is able to recognize internal stimuli. She is going to have her 2nd shot today. Mental Status Exam Mental Status Exam Patient Appearance: Appropriate Patient Orientation: Person and Situation Level of Consciousness: Awake and Appropriate Patient Behavior: Guarded and Passive Mood Description: Withdrawn Affect Description: Constricted Patient Cognition Impaired: Yes Ability to Follow Directions: Good Speech Pattern: Clear Hallucinations: Auditory Delusions: Ideas of Reference Thought Process: Distracted and Slowed Thinking Thought Content: positive for [place] and positive for Poverty of Content Judgement: Fair Diagnostics Vital Signs (24Hr): Vital Signs - 24 hr 03/24/24 20:00 03/25/24 08:00 03/25/24 09:32 Temperature 97.1 F 97.4 F Pulse Rate 71 74 Respiratory Rate 16 18 Blood Pressure 116/62 179/77 H 189/77 H Pulse Oximetry 95 94 Oxygen Delivery Method Room Air Room Air 03/25/24 09:33 Temperature Pulse Rate Respiratory Rate Blood Pressure 189/77 H Pulse Oximetry Oxygen Delivery Method BMI result Body Mass Index 39.8 Labs 03/06/24 07:43 Medications Medications Current Medications Acetaminophen (Acetaminophen 325 Mg Tablet) 650 mg PO Q6H PRN PRN Reason: Headache/Pain Mild Scale (1-3) Last Admin: 03/24/24 08:34 Dose: 650 mg Al Hydroxide/Mg Hydroxide (Magnesium Hydrox/Alum Hydrox 30 Ml Oral.Susp) 30 ml PO Q6H PRN PRN Reason: Heartburn/Nausea Albuterol Sulfate (Albuterol Sulfate 90 Mcg 8 Gm Inhaler) 2 puff INHALE QID PRN PRN Reason: wheezing Aspirin (Aspirin Enteric Coated 325 Mg Tablet.Dr) 325 mg PO BID [facility] Last Admin: 03/25/24 09:33 Dose: 325 mg Atorvastatin Calcium (Atorvastatin Calcium 80 Mg Tablet) 80 mg PO DAILY [facility] Last Admin: 03/25/24 09:32 Dose: 80 mg Docusate Sodium (Docusate Sodium 100 Mg Capsule) 100 mg PO BID PRN PRN Reason: Constipation Furosemide (Furosemide 20 Mg Tablet) 20 mg PO DAILY [facility]; Protocol Last Admin: 03/25/24 09:33 Dose: 20 mg Guaifenesin (Guaifenesin 200 Mg/10 Ml 10 Ml Liquid) 10 ml PO Q4H PRN PRN Reason: Cough Last Admin: 03/21/24 20:43 Dose: 10 ml Hydroxyzine HCl (Hydroxyzine Hcl 25 Mg Tablet) 25 mg PO Q6H PRN PRN Reason: Anxiety Last Admin: 03/22/24 15:16 Dose: 25 mg Levothyroxine Sodium (Levothyroxine Sodium 88 Mcg Tablet) 88 mcg PO DAILY@0600 [facility] Last Admin: 03/25/24 06:10 Dose: 88 mcg Lisinopril (Lisinopril 5 Mg Tablet) 5 mg PO DAILY [facility]; Protocol Last Admin: 03/25/24 09:32 Dose: 5 mg Lorazepam (Lorazepam 0.5 Mg Tablet) 0.5 mg PO TID [facility] Last Admin: 03/25/24 09:32 Dose: 0.5 mg Magnesium Hydroxide (Milk Of Magnesia 30 Ml Oral.Susp) 30 ml PO DAILY PRN PRN Reason: Constipation Last Admin: 03/23/24 09:06 Dose: 30 ml Mirabegron (Mirabegron 50 Mg Tab.Er.24h) 50 mg PO BEDTIME [facility] Last Admin: 03/24/24 20:47 Dose: 50 mg Omeprazole (Omeprazole 20 Mg Capsule.Dr) 20 mg PO DAILY@0630 [facility] Last Admin: 03/25/24 06:10 Dose: 20 mg Paliperidone Palmitate (Paliperidone Palmitate 234 Mg/1.5 Ml Syringe) 234 mg IM Q30D [facility] Last Admin: 03/19/24 15:32 Dose: 234 mg Quetiapine Fumarate (Quetiapine Fumarate 300 Mg Tablet) 300 mg PO BEDTIME [facility] Last Admin: 03/24/24 20:46 Dose: 300 mg Trazodone HCl (Trazodone Hcl 50 Mg Tablet) 50 mg PO BEDTIME MRX1 PRN PRN Reason: Insomnia Last Admin: 03/08/24 21:22 Dose: 50 mg Trazodone HCl (Trazodone Hcl 50 Mg Tablet) 150 mg PO BEDTIME [facility] Last Admin: 03/24/24 20:46 Dose: 150 mg Allergies Allergies Allergy/AdvReac Type Severity Reaction Status Date / Time Penicillins Allergy Unknown Unknown Verified 03/05/24 22:11 Assessment & Plan Assessment & Plan (1) Schizoaffective disorder: Status: Acute Code(s): F25.9 - Schizoaffective disorder, unspecified Plan Ms. Pedro is a 68 year-old woman with hx of schizoaffective disorder who was assessed by [employer] crisis at request of her outpatient psychiatrist, Dr. Natty Marte due to pt presenting as increasingly more paranoid and disorganized. She is covid positive. currently on isolation with no significant symptoms- no SOB, o2sat>96 on RA, afebrile. We discussed risks, benefits and alternative treatment options, will hold on antidepressants as will worsen psychosis, increase risperidone to 1mg po daily and 2mg po qhs. will add some ativan for catatonic- like symptoms including blank stare, mutism (or minimal spontaneous speech with significant delayed in responses). PLAN 1. admit to s1, cv, 15 minutes checks 2. increase risperidone 1mg po daily and 2mg po qhs. Risperdal was increased to 2 mg p.o. b.i.d. on March 09. March 14 we are increasing up to 2 mg in the morning and 3 at night. On March 15 we are increasing to Risperdal 3 mg p.o. b.i.d. 3. obtain collateral information 4. aftercare planning. 5. Seroquel will increase up to 300 mg p.o. q.h.s. on March 10. 6. Increase trazodone at night for sleep on March 17. On March 18 we are increasing trazodone up to 150 p.o. q.h.s. 7. Invega Sustenna 234mg IM received on 03/19. plan to taper off risperidone. Invega Sustenna 156 mg IM on 03/25. 8. Discontinue Risperdal p.o. on March 22. Reason for continued inpatient stay Substantial Risk for: inability to function, rapid decompensation and med/psych decompensation Time Spent With Patient Time: Total time managing care of this patient today __20__ minutes.
[2024-03-25 20:00] VITALS: BP 153/81; PULSE 69; RESP 16; TEMP 36.2; O2SAT 96
[2024-03-25] MEDS: Mirabegron 50 MG TAB.ER.24H PO (20:40)
[2024-03-25] MEDS: traZODone HCL 50 MG TABLET 150 MG PO (20:40)
[2024-03-25] MEDS: QUEtiapine Fumarate 300 MG TABLET PO (20:40)
[2024-03-26] MEDS: Levothyroxine Sodium 88 MCG TABLET PO (05:17)
[2024-03-26] MEDS: Omeprazole 20 MG CAPSULE.DR PO (05:17)
[2024-03-26 08:00] VITALS: BP 124/72; PULSE 71; RESP 16; TEMP 36.2; O2SAT 94
[2024-03-26 08:44] VITALS: BP 124/72
[2024-03-26] MEDS: Furosemide 20 MG TABLET PO (08:44)
[2024-03-26 08:45] VITALS: BP 124/72
[2024-03-26] MEDS: LORazepam 0.5 MG TABLET PO ×3 (08:45→20:17)
[2024-03-26] MEDS: Aspirin Enteric Coated 325 MG TABLET.DR PO ×2 (08:45→20:17)
[2024-03-26] MEDS: Atorvastatin Calcium 80 MG TABLET PO (08:45)
[2024-03-26] MEDS: lisinopriL 5 MG TABLET PO (08:45)
[2024-03-26] MEDS: Magnesium Hydrox/Alum Hydrox 30 ML ORAL.SUSP PO (09:07)
--- NOTE | 2024-03-26 13:38 | P.PNPSI_ITS ---
Subjective Subjective Date of Service: 03/26/24 Reason For Visit: Bipolar, anxiety, PTSD Subjective Notes: Conditional Voluntary Interim History: The nursing staff reported the patient had been flat affect tearful at times, she complained that the voices are telling that her son is but she is aware that there voices. There were no auditory hallucinations at night. The occupational therapist reported that her affect is wider in groups. On interview the patient reports that she has swollen legs and I will order blood work for Friday. No exacerbation of psychosis starting getting better slowly. Mental Status Exam Mental Status Exam Patient Appearance: Appropriate Patient Orientation: Person and Situation Level of Consciousness: Awake and Appropriate Patient Behavior: Guarded and Cooperative Mood Description: Withdrawn Affect Description: Constricted Patient Cognition Impaired: Yes Ability to Follow Directions: Good Speech Pattern: Clear Hallucinations: Auditory (Sporadic auditory hallucinations) Delusions: Ideas of Reference Thought Process: Distracted and Slowed Thinking Thought Content: positive for [place] and positive for [place] Judgement: Fair Diagnostics Vital Signs (24Hr): Vital Signs - 24 hr 03/25/24 20:00 03/26/24 08:00 03/26/24 08:44 Temperature 97.1 F 97.1 F Pulse Rate 69 71 Respiratory Rate 16 16 Blood Pressure 153/81 H 124/72 124/72 Pulse Oximetry 96 94 Oxygen Delivery Method Room Air Room Air 03/26/24 08:45 Temperature Pulse Rate Respiratory Rate Blood Pressure 124/72 Pulse Oximetry Oxygen Delivery Method BMI result Body Mass Index 39.8 Labs 03/06/24 07:43 Medications Medications Current Medications Acetaminophen (Acetaminophen 325 Mg Tablet) 650 mg PO Q6H PRN PRN Reason: Headache/Pain Mild Scale (1-3) Last Admin: 03/24/24 08:34 Dose: 650 mg Al Hydroxide/Mg Hydroxide (Magnesium Hydrox/Alum Hydrox 30 Ml Oral.Susp) 30 ml PO Q6H PRN PRN Reason: Heartburn/Nausea Last Admin: 03/26/24 09:07 Dose: 30 ml Albuterol Sulfate (Albuterol Sulfate 90 Mcg 8 Gm Inhaler) 2 puff INHALE QID PRN PRN Reason: wheezing Aspirin (Aspirin Enteric Coated 325 Mg Tablet.) 325 mg PO BID [facility] Last Admin: 03/26/24 08:45 Dose: 325 mg Atorvastatin Calcium (Atorvastatin Calcium 80 Mg Tablet) 80 mg PO DAILY [facility] Last Admin: 03/26/24 08:45 Dose: 80 mg Docusate Sodium (Docusate Sodium 100 Mg Capsule) 100 mg PO BID PRN PRN Reason: Constipation Furosemide (Furosemide 20 Mg Tablet) 20 mg PO DAILY [facility]; Protocol Last Admin: 03/26/24 08:44 Dose: 20 mg Guaifenesin (Guaifenesin 200 Mg/10 Ml 10 Ml Liquid) 10 ml PO Q4H PRN PRN Reason: Cough Last Admin: 03/21/24 20:43 Dose: 10 ml Hydroxyzine HCl (Hydroxyzine Hcl 25 Mg Tablet) 25 mg PO Q6H PRN PRN Reason: Anxiety Last Admin: 03/22/24 15:16 Dose: 25 mg Levothyroxine Sodium (Levothyroxine Sodium 88 Mcg Tablet) 88 mcg PO DAILY@0600 [facility] Last Admin: 03/26/24 05:17 Dose: 88 mcg Lisinopril (Lisinopril 5 Mg Tablet) 5 mg PO DAILY [facility]; Protocol Last Admin: 03/26/24 08:45 Dose: 5 mg Lorazepam (Lorazepam 0.5 Mg Tablet) 0.5 mg PO TID [facility] Last Admin: 03/26/24 08:45 Dose: 0.5 mg Magnesium Hydroxide (Milk Of Magnesia 30 Ml Oral.Susp) 30 ml PO DAILY PRN PRN Reason: Constipation Last Admin: 03/23/24 09:06 Dose: 30 ml Mirabegron (Mirabegron 50 Mg Tab.Er.24h) 50 mg PO BEDTIME [facility] Last Admin: 03/25/24 20:40 Dose: 50 mg Omeprazole (Omeprazole 20 Mg Capsule.Dr) 20 mg PO DAILY@0630 [facility] Last Admin: 03/26/24 05:17 Dose: 20 mg Paliperidone Palmitate (Paliperidone Palmitate 234 Mg/1.5 Ml Syringe) 234 mg IM Q30D [facility] Last Admin: 03/19/24 15:32 Dose: 234 mg Quetiapine Fumarate (Quetiapine Fumarate 300 Mg Tablet) 300 mg PO BEDTIME [facility] Last Admin: 03/25/24 20:40 Dose: 300 mg Trazodone HCl (Trazodone Hcl 50 Mg Tablet) 50 mg PO BEDTIME MRX1 PRN PRN Reason: Insomnia Last Admin: 03/08/24 21:22 Dose: 50 mg Trazodone HCl (Trazodone Hcl 50 Mg Tablet) 150 mg PO BEDTIME [facility] Last Admin: 03/25/24 20:40 Dose: 150 mg Allergies Allergies Allergy/AdvReac Type Severity Reaction Status Date / Time Penicillins Allergy Unknown Unknown Verified 03/05/24 22:11 Assessment & Plan Assessment & Plan (1) Schizoaffective disorder: Status: Acute Code(s): F25.9 - Schizoaffective disorder, unspecified Plan Ms. Pedro is a 68 year-old woman with hx of schizoaffective disorder who was assessed by [employer] crisis at request of her outpatient psychiatrist, Dr. Natty Marte due to pt presenting as increasingly more paranoid and disorganized. She is covid positive. currently on isolation with no significant symptoms- no SOB, o2sat>96 on RA, afebrile. We discussed risks, benefits and alternative treatment options, will hold on antidepressants as will worsen psychosis, increase risperidone to 1mg po daily and 2mg po qhs. will add some ativan for catatonic- like symptoms including blank stare, mutism (or minimal spontaneous speech with significant delayed in responses). PLAN 1. admit to s1, cv, 15 minutes checks 2. increase risperidone 1mg po daily and 2mg po qhs. Risperdal was increased to 2 mg p.o. b.i.d. on March 09. March 14 we are increasing up to 2 mg in the morning and 3 at night. On March 15 we are increasing to Risperdal 3 mg p.o. b.i.d. 3. obtain collateral information 4. aftercare planning. 5. Seroquel will increase up to 300 mg p.o. q.h.s. on March 10. 6. Increase trazodone at night for sleep on March 17. On March 18 we are increasing trazodone up to 150 p.o. q.h.s. 7. Invega Sustenna 234mg IM received on 03/19. plan to taper off risperidone. Invega Sustenna 156 mg IM on 03/25. 8. Discontinue Risperdal p.o. on March 22. 9. Basic metabolic panel, lipid profile and hemoglobin A1c for next Friday. Reason for continued inpatient stay Substantial Risk for: inability to function, rapid decompensation and med/psych decompensation Time Spent With Patient Time: Total time managing care of this patient today _20___ minutes.
[2024-03-26 20:00] VITALS: BP 124/72; PULSE 75; RESP 18; TEMP 36.2; O2SAT 95
[2024-03-26] MEDS: traZODone HCL 50 MG TABLET 150 MG PO (20:16)
[2024-03-26] MEDS: QUEtiapine Fumarate 300 MG TABLET PO (20:17)
[2024-03-26] MEDS: Mirabegron 50 MG TAB.ER.24H PO (20:17)
[2024-03-27] MEDS: Omeprazole 20 MG CAPSULE.DR PO (06:25)
[2024-03-27] MEDS: Levothyroxine Sodium 88 MCG TABLET PO (06:25)
[2024-03-27 08:00] VITALS: BP 145/88; PULSE 68; RESP 18; TEMP 36.3; O2SAT 96
[2024-03-27 09:09] VITALS: BP 145/88
[2024-03-27] MEDS: Atorvastatin Calcium 80 MG TABLET PO (09:09)
[2024-03-27] MEDS: Furosemide 20 MG TABLET PO (09:09)
[2024-03-27 09:10] VITALS: BP 145/88
[2024-03-27] MEDS: LORazepam 0.5 MG TABLET PO ×3 (09:10→20:23)
[2024-03-27] MEDS: Aspirin Enteric Coated 325 MG TABLET.DR PO ×2 (09:10→20:23)
[2024-03-27] MEDS: lisinopriL 5 MG TABLET PO (09:10)
--- NOTE | 2024-03-27 10:20 | P.PNPSI_ITS ---
Subjective Subjective Date of Service: 03/27/24 Reason For Visit: Bipolar, anxiety, PTSD Subjective Notes: Conditional Voluntary Interim History: Patient was seen and discussed in rounds today. Records and plans were reviewed. She continues to be doing a little better with brighter affect. Some episodes of tearfulness. No complaints or side effects. No signs of psychosis reported. No changes were made today Review of Systems Review of Systems Yes all other systems are reviewed and are negative Mental Status Exam Mental Status Exam Patient Appearance: Appropriate Patient Orientation: Person and Situation Level of Consciousness: Awake and Appropriate Patient Behavior: Guarded and Cooperative Mood Description: Withdrawn Affect Description: Constricted Patient Cognition Impaired: Yes Ability to Follow Directions: Good Speech Pattern: Clear Hallucinations: Auditory (Sporadic auditory hallucinations) Delusions: Ideas of Reference Thought Process: Distracted and Slowed Thinking Thought Content: positive for [place] and positive for Perseveration Judgement: Fair Diagnostics Vital Signs (24Hr): Vital Signs - 24 hr 03/26/24 20:00 03/27/24 08:00 03/27/24 09:09 Temperature 97.2 F 97.4 F Pulse Rate 75 68 Respiratory Rate 18 18 Blood Pressure 124/72 145/88 H 145/88 H Pulse Oximetry 95 96 Oxygen Delivery Method Room Air Room Air 03/27/24 09:10 Temperature Pulse Rate Respiratory Rate Blood Pressure 145/88 H Pulse Oximetry Oxygen Delivery Method BMI result Body Mass Index 39.8 Labs 03/06/24 07:43 Medications Medications Current Medications Acetaminophen (Acetaminophen 325 Mg Tablet) 650 mg PO Q6H PRN PRN Reason: Headache/Pain Mild Scale (1-3) Last Admin: 03/24/24 08:34 Dose: 650 mg Al Hydroxide/Mg Hydroxide (Magnesium Hydrox/Alum Hydrox 30 Ml Oral.Susp) 30 ml PO Q6H PRN PRN Reason: Heartburn/Nausea Last Admin: 03/26/24 09:07 Dose: 30 ml Albuterol Sulfate (Albuterol Sulfate 90 Mcg 8 Gm Inhaler) 2 puff INHALE QID PRN PRN Reason: wheezing Aspirin (Aspirin Enteric Coated 325 Mg Tablet.) 325 mg PO BID [facility] Last Admin: 03/27/24 09:10 Dose: 325 mg Atorvastatin Calcium (Atorvastatin Calcium 80 Mg Tablet) 80 mg PO DAILY [facility] Last Admin: 03/27/24 09:09 Dose: 80 mg Docusate Sodium (Docusate Sodium 100 Mg Capsule) 100 mg PO BID PRN PRN Reason: Constipation Furosemide (Furosemide 20 Mg Tablet) 20 mg PO DAILY [facility]; Protocol Last Admin: 03/27/24 09:09 Dose: 20 mg Guaifenesin (Guaifenesin 200 Mg/10 Ml 10 Ml Liquid) 10 ml PO Q4H PRN PRN Reason: Cough Last Admin: 03/21/24 20:43 Dose: 10 ml Hydroxyzine HCl (Hydroxyzine Hcl 25 Mg Tablet) 25 mg PO Q6H PRN PRN Reason: Anxiety Last Admin: 03/22/24 15:16 Dose: 25 mg Levothyroxine Sodium (Levothyroxine Sodium 88 Mcg Tablet) 88 mcg PO DAILY@0600 [facility] Last Admin: 03/27/24 06:25 Dose: 88 mcg Lisinopril (Lisinopril 5 Mg Tablet) 5 mg PO DAILY [facility]; Protocol Last Admin: 03/27/24 09:10 Dose: 5 mg Lorazepam (Lorazepam 0.5 Mg Tablet) 0.5 mg PO TID [facility] Last Admin: 03/27/24 09:10 Dose: 0.5 mg Magnesium Hydroxide (Milk Of Magnesia 30 Ml Oral.Susp) 30 ml PO DAILY PRN PRN Reason: Constipation Last Admin: 03/23/24 09:06 Dose: 30 ml Mirabegron (Mirabegron 50 Mg Tab.Er.24h) 50 mg PO BEDTIME [facility] Last Admin: 03/26/24 20:17 Dose: 50 mg Omeprazole (Omeprazole 20 Mg Capsule.Dr) 20 mg PO DAILY@0630 [facility] Last Admin: 03/27/24 06:25 Dose: 20 mg Paliperidone Palmitate (Paliperidone Palmitate 234 Mg/1.5 Ml Syringe) 234 mg IM Q30D [facility] Last Admin: 03/19/24 15:32 Dose: 234 mg Quetiapine Fumarate (Quetiapine Fumarate 300 Mg Tablet) 300 mg PO BEDTIME [facility] Last Admin: 03/26/24 20:17 Dose: 300 mg Trazodone HCl (Trazodone Hcl 50 Mg Tablet) 50 mg PO BEDTIME MRX1 PRN PRN Reason: Insomnia Last Admin: 03/08/24 21:22 Dose: 50 mg Trazodone HCl (Trazodone Hcl 50 Mg Tablet) 150 mg PO BEDTIME [facility] Last Admin: 03/26/24 20:16 Dose: 150 mg Allergies Allergies Allergy/AdvReac Type Severity Reaction Status Date / Time Penicillins Allergy Unknown Unknown Verified 03/05/24 22:11 Assessment & Plan Assessment & Plan (1) Schizoaffective disorder: Status: Acute Code(s): F25.9 - Schizoaffective disorder, unspecified Plan Ms. Pedro is a 68 year-old woman with hx of schizoaffective disorder who was assessed by [employer]PERATOR crisis at request of her outpatient psychiatrist, Dr. Natty Marte due to pt presenting as increasingly more paranoid and disorganized. She is covid positive. currently on isolation with no significant symptoms- no SOB, o2sat>96 on RA, afebrile. We discussed risks, benefits and alternative treatment options, will hold on antidepressants as will worsen psychosis, increase risperidone to 1mg po daily and 2mg po qhs. will add some ativan for catatonic- like symptoms including blank stare, mutism (or minimal spontaneous speech with significant delayed in responses). PLAN 1. admit to s1, cv, 15 minutes checks 2. increase risperidone 1mg po daily and 2mg po qhs. Risperdal was increased to 2 mg p.o. b.i.d. on March 09. March 14 we are increasing up to 2 mg in the morning and 3 at night. On March 15 we are increasing to Risperdal 3 mg p.o. b.i.d. 3. obtain collateral information 4. aftercare planning. 5. Seroquel will increase up to 300 mg p.o. q.h.s. on March 10. 6. Increase trazodone at night for sleep on March 17. On March 18 we are increasing trazodone up to 150 p.o. q.h.s. 7. Invega Sustenna 234mg IM received on 03/19. plan to taper off risperidone. Invega Sustenna 156 mg IM on 03/25. 8. Discontinue Risperdal p.o. on March 22. 9. Basic metabolic panel, lipid profile and hemoglobin A1c for next Friday. 03/27: Continue current treatment and plan Reason for continued inpatient stay Substantial Risk for: inability to function Time Spent With Patient Time: Total time managing care of this patient today ____ minutes.
[2024-03-27] MEDS: Milk of Magnesia 30 ML ORAL.SUSP PO (11:59)
[2024-03-27] MEDS: hydrOXYzine HCL 25 MG TABLET PO (16:48)
--- NOTE | 2024-03-27 16:49 | PC.NURSE ---
Hydroxizine 25 mg administered at 1649 for c/o anxiety. Will continue to monitor.
[2024-03-27 20:00] VITALS: BP 143/82; PULSE 74; RESP 18; TEMP 36.8; O2SAT 94
[2024-03-27] MEDS: traZODone HCL 50 MG TABLET 150 MG PO (20:22)
[2024-03-27] MEDS: QUEtiapine Fumarate 300 MG TABLET PO (20:22)
[2024-03-27] MEDS: Mirabegron 50 MG TAB.ER.24H PO (20:23)
[2024-03-28] MEDS: Levothyroxine Sodium 88 MCG TABLET PO (05:36)
[2024-03-28] MEDS: Omeprazole 20 MG CAPSULE.DR PO (05:45)
[2024-03-28 07:58] VITALS: BP 128/68; PULSE 71; RESP 18; TEMP 36.3; O2SAT 96
[2024-03-28 08:34] VITALS: BP 128/68
[2024-03-28] MEDS: Atorvastatin Calcium 80 MG TABLET PO (08:34)
[2024-03-28] MEDS: Furosemide 20 MG TABLET PO (08:34)
[2024-03-28] MEDS: LORazepam 0.5 MG TABLET PO ×3 (08:35→20:41)
[2024-03-28] MEDS: Aspirin Enteric Coated 325 MG TABLET.DR PO ×2 (08:35→20:40)
[2024-03-28 08:36] VITALS: BP 128/68
[2024-03-28] MEDS: lisinopriL 5 MG TABLET PO (08:36)
--- NOTE | 2024-03-28 10:52 | HO.PSYCHPN ---
Subjective Subjective Date of Service: 03/28/24 Reason For Visit: Bipolar, anxiety, PTSD Subjective Notes: Conditional Voluntary Interim History: Patient was seen and discussed in rounds today. Records and plans were reviewed. She has been stable with some further improvement. Affect is flat. Eating and sleeping adequately. No side effects or complaints. No changes were made today Review of Systems Review of Systems Yes all other systems are reviewed and are negative Mental Status Exam Mental Status Exam Patient Appearance: Appropriate Patient Orientation: Person and Situation Level of Consciousness: Awake and Appropriate Patient Behavior: Guarded and Cooperative Mood Description: Withdrawn Affect Description: Constricted Patient Cognition Impaired: Yes Ability to Follow Directions: Good Speech Pattern: Clear Hallucinations: Auditory (Sporadic auditory hallucinations) Delusions: Ideas of Reference Thought Process: Distracted and Slowed Thinking Thought Content: positive for [place] and positive for Perseveration Judgement: Fair Diagnostics Vital Signs (24Hr): Vital Signs - 24 hr 03/27/24 20:00 03/28/24 07:58 03/28/24 08:34 Temperature 98.3 F 97.3 F Pulse Rate 74 71 Respiratory Rate 18 18 Blood Pressure 143/82 H 128/68 128/68 Pulse Oximetry 94 96 Oxygen Delivery Method Room Air Room Air 03/28/24 08:36 Temperature Pulse Rate Respiratory Rate Blood Pressure 128/68 Pulse Oximetry Oxygen Delivery Method BMI result Body Mass Index 39.8 Labs 03/06/24 07:43 Medications Medications Current Medications Acetaminophen (Acetaminophen 325 Mg Tablet) 650 mg PO Q6H PRN PRN Reason: Headache/Pain Mild Scale (1-3) Last Admin: 03/24/24 08:34 Dose: 650 mg Al Hydroxide/Mg Hydroxide (Magnesium Hydrox/Alum Hydrox 30 Ml Oral.Susp) 30 ml PO Q6H PRN PRN Reason: Heartburn/Nausea Last Admin: 03/26/24 09:07 Dose: 30 ml Albuterol Sulfate (Albuterol Sulfate 90 Mcg 8 Gm Inhaler) 2 puff INHALE QID PRN PRN Reason: wheezing Aspirin (Aspirin Enteric Coated 325 Mg Tablet.) 325 mg PO BID [facility] Last Admin: 03/28/24 08:35 Dose: 325 mg Atorvastatin Calcium (Atorvastatin Calcium 80 Mg Tablet) 80 mg PO DAILY [facility] Last Admin: 03/28/24 08:34 Dose: 80 mg Docusate Sodium (Docusate Sodium 100 Mg Capsule) 100 mg PO BID PRN PRN Reason: Constipation Furosemide (Furosemide 20 Mg Tablet) 20 mg PO DAILY [facility]; Protocol Last Admin: 03/28/24 08:34 Dose: 20 mg Guaifenesin (Guaifenesin 200 Mg/10 Ml 10 Ml Liquid) 10 ml PO Q4H PRN PRN Reason: Cough Last Admin: 03/21/24 20:43 Dose: 10 ml Hydroxyzine HCl (Hydroxyzine Hcl 25 Mg Tablet) 25 mg PO Q6H PRN PRN Reason: Anxiety Last Admin: 03/27/24 16:48 Dose: 25 mg Levothyroxine Sodium (Levothyroxine Sodium 88 Mcg Tablet) 88 mcg PO DAILY@0600 [facility] Last Admin: 03/28/24 05:36 Dose: 88 mcg Lisinopril (Lisinopril 5 Mg Tablet) 5 mg PO DAILY [facility]; Protocol Last Admin: 03/28/24 08:36 Dose: 5 mg Lorazepam (Lorazepam 0.5 Mg Tablet) 0.5 mg PO TID [facility] Last Admin: 03/28/24 08:35 Dose: 0.5 mg Magnesium Hydroxide (Milk Of Magnesia 30 Ml Oral.Susp) 30 ml PO DAILY PRN PRN Reason: Constipation Last Admin: 03/27/24 11:59 Dose: 30 ml Mirabegron (Mirabegron 50 Mg Tab.Er.24h) 50 mg PO BEDTIME [facility] Last Admin: 03/27/24 20:23 Dose: 50 mg Omeprazole (Omeprazole 20 Mg Capsule.Dr) 20 mg PO DAILY@0630 [facility] Last Admin: 03/28/24 05:45 Dose: 20 mg Paliperidone Palmitate (Paliperidone Palmitate 234 Mg/1.5 Ml Syringe) 234 mg IM Q30D [facility] Last Admin: 03/19/24 15:32 Dose: 234 mg Quetiapine Fumarate (Quetiapine Fumarate 300 Mg Tablet) 300 mg PO BEDTIME [facility] Last Admin: 03/27/24 20:22 Dose: 300 mg Trazodone HCl (Trazodone Hcl 50 Mg Tablet) 50 mg PO BEDTIME MRX1 PRN PRN Reason: Insomnia Last Admin: 03/08/24 21:22 Dose: 50 mg Trazodone HCl (Trazodone Hcl 50 Mg Tablet) 150 mg PO BEDTIME [facility] Last Admin: 03/27/24 20:22 Dose: 150 mg Allergies Allergies Allergy/AdvReac Type Severity Reaction Status Date / Time Penicillins Allergy Unknown Unknown Verified 03/05/24 22:11 Assessment & Plan Assessment & Plan (1) Schizoaffective disorder: Status: Acute Code(s): F25.9 - Schizoaffective disorder, unspecified Plan Ms. Pedro is a 68 year-old woman with hx of schizoaffective disorder who was assessed by [employer] crisis at request of her outpatient psychiatrist, Dr. Natty Marte due to pt presenting as increasingly more paranoid and disorganized. She is covid positive. currently on isolation with no significant symptoms- no SOB, o2sat>96 on RA, afebrile. We discussed risks, benefits and alternative treatment options, will hold on antidepressants as will worsen psychosis, increase risperidone to 1mg po daily and 2mg po qhs. will add some ativan for catatonic-like symptoms including blank stare, mutism (or minimal spontaneous speech with significant delayed in responses). PLAN 1. admit to s1, cv, 15 minutes checks 2. increase risperidone 1mg po daily and 2mg po qhs. Risperdal was increased to 2 mg p.o. b.i.d. on March 09. March 14 we are increasing up to 2 mg in the morning and 3 at night. On March 15 we are increasing to Risperdal 3 mg p.o. b.i.d. 3. obtain collateral information 4. aftercare planning. 5. Seroquel will increase up to 300 mg p.o. q.h.s. on March 10. 6. Increase trazodone at night for sleep on March 17. On March 18 we are increasing trazodone up to 150 p.o. q.h.s. 7. Invega Sustenna 234mg IM received on 03/19. plan to taper off risperidone. Invega Sustenna 156 mg IM on 03/25. 8. Discontinue Risperdal p.o. on March 22. 9. Basic metabolic panel, lipid profile and hemoglobin A1c for next Friday. 03/27: Continue current treatment and plan 03/28: Continue current regimen and plans Reason for continued inpatient stay Substantial Risk for: inability to function Time Spent With Patient Time: Total time managing care of this patient today ____ minutes.
[2024-03-28 20:00] VITALS: BP 132/60; PULSE 72; RESP 18; TEMP 36.2; O2SAT 95
[2024-03-28] MEDS: Mirabegron 50 MG TAB.ER.24H PO (20:40)
[2024-03-28] MEDS: traZODone HCL 50 MG TABLET 150 MG PO (20:41)
[2024-03-28] MEDS: QUEtiapine Fumarate 300 MG TABLET PO (20:42)
[2024-03-29] MEDS: Omeprazole 20 MG CAPSULE.DR PO (05:55)
[2024-03-29] MEDS: Levothyroxine Sodium 88 MCG TABLET PO (05:55)
[2024-03-29 07:26] LABS: Estimated Average Glucose 157 mg/dL; Hemoglobin A1c % 7.1 % (<6.0)
[2024-03-29 07:31] LABS: Anion Gap 15 (12-20); Blood Urea Nitrogen 18 mg/dL (9-16); Carbon Dioxide 25 mmol/L (22-29); Chloride 104 mmol/L (96-108); Creatinine Clr Calc Pharmacy 67.7; Estimated Glomerular Filt Rate 58; Glucose Random 196 mg/dL (60-115); Sodium 140 mmol/L (135-145)
[2024-03-29 07:32] LABS: Calcium 9.4 mg/dL (8.4-10.2); Cholesterol 158 mg/dL (<200); HDL Cholesterol 42 mg/dL (>40); LDL Cholesterol Calculated 78 mg/dL (<100); Triglycerides 190 mg/dL (<150)
[2024-03-29 08:22] VITALS: BP 120/69; PULSE 71; RESP 16; TEMP 36.5
[2024-03-29 08:28] VITALS: BP 120/69
[2024-03-29] MEDS: Atorvastatin Calcium 80 MG TABLET PO (08:28)
[2024-03-29] MEDS: LORazepam 0.5 MG TABLET PO ×3 (08:28→21:33)
[2024-03-29] MEDS: lisinopriL 5 MG TABLET PO (08:28)
[2024-03-29] MEDS: Aspirin Enteric Coated 325 MG TABLET.DR PO ×2 (08:28→21:34)
[2024-03-29] MEDS: Furosemide 20 MG TABLET PO (08:28)
--- NOTE | 2024-03-29 12:12 | P.PNPSI_ITS ---
Subjective Subjective Date of Service: 03/29/24 Reason For Visit: Bipolar, anxiety, PTSD Subjective Notes: Conditional Voluntary Interim History: The nursing staff reported the patient had been much better, he was seen in the common areas with a brighter affect, with good appetite and she slept well. On interview the patient reports sporadic auditory hallucinations affect is slightly flat, probably we are going to start an SSRI. Mental Status Exam Mental Status Exam Patient Appearance: Appropriate Patient Orientation: Person and Situation Level of Consciousness: Awake Patient Behavior: Guarded and Passive Mood Description: Withdrawn Affect Description: Constricted Patient Cognition Impaired: Yes Ability to Follow Directions: Good Speech Pattern: Clear Hallucinations: Auditory Delusions: Ideas of Reference Thought Process: Distracted and Slowed Thinking Thought Content: positive for [place] and positive for Circumstantial Judgement: Fair Diagnostics Vital Signs (24Hr): Vital Signs - 24 hr 03/28/24 20:00 03/29/24 08:22 03/29/24 08:28 Temperature 97.2 F 97.7 F Pulse Rate 72 71 Respiratory Rate 18 16 Blood Pressure 132/60 120/69 120/69 Pulse Oximetry 95 Oxygen Delivery Method Room Air Room Air 03/29/24 08:28 Temperature Pulse Rate Respiratory Rate Blood Pressure 120/69 Pulse Oximetry Oxygen Delivery Method BMI result Body Mass Index 39.8 Labs 03/29/24 07:02 Labs: Laboratory Results - last 48 hr 03/29/24 07:02 Sodium 140 Potassium 4.0 Chloride 104 Carbon Dioxide 25 Anion Gap 15 BUN 18 H Creatinine 0.96 Estim Creat Clear Calc 67.7 Estimated GFR 58 Random Glucose 196 H Estimat Average Glucose 157 Hemoglobin A1c % 7.1 H Calcium 9.4 Triglycerides 190 H Cholesterol 158 LDL Cholesterol, Calc 78 HDL Cholesterol 42 Medications Medications Current Medications Acetaminophen (Acetaminophen 325 Mg Tablet) 650 mg PO Q6H PRN PRN Reason: Headache/Pain Mild Scale (1-3) Last Admin: 03/24/24 08:34 Dose: 650 mg Al Hydroxide/Mg Hydroxide (Magnesium Hydrox/Alum Hydrox 30 Ml Oral.Susp) 30 ml PO Q6H PRN PRN Reason: Heartburn/Nausea Last Admin: 03/26/24 09:07 Dose: 30 ml Albuterol Sulfate (Albuterol Sulfate 90 Mcg 8 Gm Inhaler) 2 puff INHALE QID PRN PRN Reason: wheezing Aspirin (Aspirin Enteric Coated 325 Mg Tablet.) 325 mg PO BID [facility] Last Admin: 03/29/24 08:28 Dose: 325 mg Atorvastatin Calcium (Atorvastatin Calcium 80 Mg Tablet) 80 mg PO DAILY [facility] Last Admin: 03/29/24 08:28 Dose: 80 mg Docusate Sodium (Docusate Sodium 100 Mg Capsule) 100 mg PO BID PRN PRN Reason: Constipation Furosemide (Furosemide 20 Mg Tablet) 20 mg PO DAILY [facility]; Protocol Last Admin: 03/29/24 08:28 Dose: 20 mg Guaifenesin (Guaifenesin 200 Mg/10 Ml 10 Ml Liquid) 10 ml PO Q4H PRN PRN Reason: Cough Last Admin: 03/21/24 20:43 Dose: 10 ml Hydroxyzine HCl (Hydroxyzine Hcl 25 Mg Tablet) 25 mg PO Q6H PRN PRN Reason: Anxiety Last Admin: 03/27/24 16:48 Dose: 25 mg Levothyroxine Sodium (Levothyroxine Sodium 88 Mcg Tablet) 88 mcg PO DAILY@0600 [facility] Last Admin: 03/29/24 05:55 Dose: 88 mcg Lisinopril (Lisinopril 5 Mg Tablet) 5 mg PO DAILY [facility]; Protocol Last Admin: 03/29/24 08:28 Dose: 5 mg Lorazepam (Lorazepam 0.5 Mg Tablet) 0.5 mg PO TID [facility] Last Admin: 03/29/24 08:28 Dose: 0.5 mg Magnesium Hydroxide (Milk Of Magnesia 30 Ml Oral.Susp) 30 ml PO DAILY PRN PRN Reason: Constipation Last Admin: 03/27/24 11:59 Dose: 30 ml Mirabegron (Mirabegron 50 Mg Tab.Er.24h) 50 mg PO BEDTIME [facility] Last Admin: 03/28/24 20:40 Dose: 50 mg Omeprazole (Omeprazole 20 Mg Capsule.) 20 mg PO DAILY@0630 [facility] Last Admin: 03/29/24 05:55 Dose: 20 mg Paliperidone Palmitate (Paliperidone Palmitate 234 Mg/1.5 Ml Syringe) 234 mg IM Q30D [facility] Last Admin: 03/19/24 15:32 Dose: 234 mg Quetiapine Fumarate (Quetiapine Fumarate 300 Mg Tablet) 300 mg PO BEDTIME [facility] Last Admin: 03/28/24 20:42 Dose: 300 mg Trazodone HCl (Trazodone Hcl 50 Mg Tablet) 50 mg PO BEDTIME MRX1 PRN PRN Reason: Insomnia Last Admin: 03/08/24 21:22 Dose: 50 mg Trazodone HCl (Trazodone Hcl 50 Mg Tablet) 150 mg PO BEDTIME [facility] Last Admin: 03/28/24 20:41 Dose: 150 mg Allergies Allergies Allergy/AdvReac Type Severity Reaction Status Date / Time Penicillins Allergy Unknown Unknown Verified 03/05/24 22:11 Assessment & Plan Assessment & Plan (1) Schizoaffective disorder: Status: Acute Code(s): F25.9 - Schizoaffective disorder, unspecified Plan Ms. Perdo is a 68 year-old woman with hx of schizoaffective disorder who was assessed by [employer] MANAGER crisis at request of her outpatient psychiatrist, Dr. Natty Marte due to pt presenting as increasingly more paranoid and disorganized. She is covid positive. currently on isolation with no significant symptoms- no SOB, o2sat>96 on RA, afebrile. We discussed risks, benefits and alternative treatment options, will hold on antidepressants as will worsen psychosis, increase risperidone to 1mg po daily and 2mg po qhs. will add some ativan for catatonic- like symptoms including blank stare, mutism (or minimal spontaneous speech with significant delayed in responses). PLAN 1. admit to s1, cv, 15 minutes checks 2. increase risperidone 1mg po daily and 2mg po qhs. Risperdal was increased to 2 mg p.o. b.i.d. on March 09. March 14 we are increasing up to 2 mg in the morning and 3 at night. On March 15 we are increasing to Risperdal 3 mg p.o. b.i.d. 3. obtain collateral information 4. aftercare planning. 5. Seroquel will increase up to 300 mg p.o. q.h.s. on March 10. 6. Increase trazodone at night for sleep on March 17. On March 18 we are increasing trazodone up to 150 p.o. q.h.s. 7. Invega Sustenna 234mg IM received on 03/19. plan to taper off risperidone. Invega Sustenna 156 mg IM on 03/25. 8. Discontinue Risperdal p.o. on March 22. 9. Basic metabolic panel, lipid profile and hemoglobin A1c for next Friday. 10. Start on SSRIs Reason for continued inpatient stay Substantial Risk for: inability to function, rapid decompensation and med/psych decompensation Time Spent With Patient Time: Total time managing care of this patient today ____ minutes.
[2024-03-29] MEDS: Magnesium Hydrox/Alum Hydrox 30 ML ORAL.SUSP PO (15:15)
[2024-03-29 20:00] VITALS: BP 138/63; PULSE 77; RESP 18; TEMP 35.3; O2SAT 97
[2024-03-29] MEDS: QUEtiapine Fumarate 300 MG TABLET PO (21:33)
[2024-03-29] MEDS: Mirabegron 50 MG TAB.ER.24H PO (21:34)
[2024-03-29] MEDS: traZODone HCL 50 MG TABLET 150 MG PO (21:34)
[2024-03-30] MEDS: Omeprazole 20 MG CAPSULE.DR PO (06:37)
[2024-03-30] MEDS: Levothyroxine Sodium 88 MCG TABLET PO (06:37)
[2024-03-30 08:00] VITALS: BP 152/75; PULSE 73; RESP 16; TEMP 36.2; O2SAT 95
[2024-03-30 08:53] VITALS: BP 152/75
[2024-03-30] MEDS: lisinopriL 5 MG TABLET PO (08:53)
[2024-03-30] MEDS: Aspirin Enteric Coated 325 MG TABLET.DR PO ×2 (08:53→20:21)
[2024-03-30] MEDS: Furosemide 20 MG TABLET PO (08:53)
[2024-03-30] MEDS: Sertraline HCL 25 MG TABLET PO (08:54)
[2024-03-30] MEDS: LORazepam 0.5 MG TABLET PO ×3 (08:54→20:21)
[2024-03-30] MEDS: Atorvastatin Calcium 80 MG TABLET PO (08:54)
[2024-03-30] MEDS: Magnesium Hydrox/Alum Hydrox 30 ML ORAL.SUSP PO (08:58)
--- NOTE | 2024-03-30 12:36 | HO.PSYCHPN ---
Subjective Subjective Date of Service: 03/30/24 Reason For Visit: Bipolar, anxiety, PTSD Subjective Notes: Conditional Voluntary Interim History: The nursing staff reported the patient denies exacerbation of auditory hallucinations, her mood is stable at this moment, she slept well and she had been compliant with treatment. On interview the patient denies new symptoms today on rounds we discussed the possibility to discharge her this week. The social service worker reported that she interview the patient and she admitted that she feels better less voices and she has the ability for reality testing. Mental Status Exam Mental Status Exam Patient Appearance: Appropriate Patient Orientation: Person and Situation Level of Consciousness: Awake and Appropriate Patient Behavior: Guarded and Passive Mood Description: Withdrawn Affect Description: Constricted Patient Cognition Impaired: Yes Ability to Follow Directions: Good Speech Pattern: Clear Hallucinations: None Delusions: Ideas of Reference Thought Process: Distracted and Slowed Thinking Thought Content: positive for [place] and positive for Circumstantial Judgement: Fair Diagnostics Vital Signs (24Hr): Vital Signs - 24 hr 03/29/24 20:00 03/30/24 08:00 03/30/24 08:53 Temperature 95.6 F L 97.2 F Pulse Rate 77 73 Respiratory Rate 18 16 Blood Pressure 138/63 152/75 H 152/75 H Pulse Oximetry 97 95 Oxygen Delivery Method Room Air Room Air 03/30/24 08:53 Temperature Pulse Rate Respiratory Rate Blood Pressure 152/75 H Pulse Oximetry Oxygen Delivery Method BMI result Body Mass Index 39.8 Labs 03/29/24 07:02 Labs: Laboratory Results - last 48 hr 03/29/24 07:02 Sodium 140 Potassium 4.0 Chloride 104 Carbon Dioxide 25 Anion Gap 15 BUN 18 H Creatinine 0.96 Estim Creat Clear Calc 67.7 Estimated GFR 58 Random Glucose 196 H Estimat Average Glucose 157 Hemoglobin A1c % 7.1 H Calcium 9.4 Triglycerides 190 H Cholesterol 158 LDL Cholesterol, Calc 78 HDL Cholesterol 42 Medications Medications Current Medications Acetaminophen (Acetaminophen 325 Mg Tablet) 650 mg PO Q6H PRN PRN Reason: Headache/Pain Mild Scale (1-3) Last Admin: 03/24/24 08:34 Dose: 650 mg Al Hydroxide/Mg Hydroxide (Magnesium Hydrox/Alum Hydrox 30 Ml Oral.Susp) 30 ml PO Q6H PRN PRN Reason: Heartburn/Nausea Last Admin: 03/30/24 08:58 Dose: 30 ml Albuterol Sulfate (Albuterol Sulfate 90 Mcg 8 Gm Inhaler) 2 puff INHALE QID PRN PRN Reason: wheezing Aspirin (Aspirin Enteric Coated 325 Mg Tablet.) 325 mg PO BID [facility] Last Admin: 03/30/24 08:53 Dose: 325 mg Atorvastatin Calcium (Atorvastatin Calcium 80 Mg Tablet) 80 mg PO DAILY [facility] Last Admin: 03/30/24 08:54 Dose: 80 mg Docusate Sodium (Docusate Sodium 100 Mg Capsule) 100 mg PO BID PRN PRN Reason: Constipation Furosemide (Furosemide 20 Mg Tablet) 20 mg PO DAILY [facility]; Protocol Last Admin: 03/30/24 08:53 Dose: 20 mg Guaifenesin (Guaifenesin 200 Mg/10 Ml 10 Ml Liquid) 10 ml PO Q4H PRN PRN Reason: Cough Last Admin: 03/21/24 20:43 Dose: 10 ml Hydroxyzine HCl (Hydroxyzine Hcl 25 Mg Tablet) 25 mg PO Q6H PRN PRN Reason: Anxiety Last Admin: 03/27/24 16:48 Dose: 25 mg Levothyroxine Sodium (Levothyroxine Sodium 88 Mcg Tablet) 88 mcg PO DAILY@0600 [facility] Last Admin: 03/30/24 06:37 Dose: 88 mcg Lisinopril (Lisinopril 5 Mg Tablet) 5 mg PO DAILY [facility]; Protocol Last Admin: 03/30/24 08:53 Dose: 5 mg Lorazepam (Lorazepam 0.5 Mg Tablet) 0.5 mg PO TID [facility] Last Admin: 03/30/24 08:54 Dose: 0.5 mg Magnesium Hydroxide (Milk Of Magnesia 30 Ml Oral.Susp) 30 ml PO DAILY PRN PRN Reason: Constipation Last Admin: 03/27/24 11:59 Dose: 30 ml Mirabegron (Mirabegron 50 Mg Tab.Er.24h) 50 mg PO BEDTIME [facility] Last Admin: 03/29/24 21:34 Dose: 50 mg Omeprazole (Omeprazole 20 Mg Capsule.) 20 mg PO DAILY@0630 [facility] Last Admin: 03/30/24 06:37 Dose: 20 mg Paliperidone Palmitate (Paliperidone Palmitate 234 Mg/1.5 Ml Syringe) 234 mg IM Q30D [facility] Last Admin: 03/19/24 15:32 Dose: 234 mg Quetiapine Fumarate (Quetiapine Fumarate 300 Mg Tablet) 300 mg PO BEDTIME [facility] Last Admin: 03/29/24 21:33 Dose: 300 mg Sertraline HCl (Sertraline Hcl 25 Mg Tablet) 25 mg PO DAILY [facility] Last Admin: 03/30/24 08:54 Dose: 25 mg Trazodone HCl (Trazodone Hcl 50 Mg Tablet) 50 mg PO BEDTIME MRX1 PRN PRN Reason: Insomnia Last Admin: 03/08/24 21:22 Dose: 50 mg Trazodone HCl (Trazodone Hcl 50 Mg Tablet) 150 mg PO BEDTIME [facility] Last Admin: 03/29/24 21:34 Dose: 150 mg Allergies Allergies Allergy/AdvReac Type Severity Reaction Status Date / Time Penicillins Allergy Unknown Unknown Verified 03/05/24 22:11 Assessment & Plan Assessment & Plan (1) Schizoaffective disorder: Status: Acute Code(s): F25.9 - Schizoaffective disorder, unspecified Plan Ms. Pedro is a 68 year-old woman with hx of schizoaffective disorder who was assessed by [employer] [employer] crisis at request of her outpatient psychiatrist, Dr. Natty Marte due to pt presenting as increasingly more paranoid and disorganized. She is covid positive. currently on isolation with no significant symptoms- no SOB, o2sat>96 on RA, afebrile. We discussed risks, benefits and alternative treatment options, will hold on antidepressants as will worsen psychosis, increase risperidone to 1mg po daily and 2mg po qhs. will add some ativan for catatonic-like symptoms including blank stare, mutism (or minimal spontaneous speech with significant delayed in responses). PLAN 1. admit to s1, cv, 15 minutes checks 2. increase risperidone 1mg po daily and 2mg po qhs. Risperdal was increased to 2 mg p.o. b.i.d. on March 09. March 14 we are increasing up to 2 mg in the morning and 3 at night. On March 15 we are increasing to Risperdal 3 mg p.o. b.i.d. 3. obtain collateral information 4. aftercare planning. 5. Seroquel will increase up to 300 mg p.o. q.h.s. on March 10. 6. Increase trazodone at night for sleep on March 17. On March 18 we are increasing trazodone up to 150 p.o. q.h.s. 7. Invega Sustenna 234mg IM received on 03/19. plan to taper off risperidone. Invega Sustenna 156 mg IM on 03/25. 8. Discontinue Risperdal p.o. on March 22. 9. Basic metabolic panel, lipid profile and hemoglobin A1c for next Friday. 10. Start on SSRIs , on a low dose of Zoloft 25 p.o. daily Reason for continued inpatient stay Substantial Risk for: inability to function, rapid decompensation and med/psych decompensation Time Spent With Patient Time: Total time managing care of this patient today _20___ minutes.
[2024-03-30 20:00] VITALS: BP 131/60; PULSE 75; RESP 16; TEMP 36.3; O2SAT 93
[2024-03-30] MEDS: traZODone HCL 50 MG TABLET 150 MG PO (20:21)
[2024-03-30] MEDS: Mirabegron 50 MG TAB.ER.24H PO (20:22)
[2024-03-30] MEDS: QUEtiapine Fumarate 300 MG TABLET PO (20:22)
[2024-03-31] MEDS: Omeprazole 20 MG CAPSULE.DR PO (06:22)
[2024-03-31] MEDS: Levothyroxine Sodium 88 MCG TABLET PO (06:22)
[2024-03-31 08:00] VITALS: BP 131/80; PULSE 78; RESP 17; TEMP 36.5; O2SAT 95
[2024-03-31] MEDS: Aspirin Enteric Coated 325 MG TABLET.DR PO ×2 (08:23→20:21)
[2024-03-31] MEDS: Sertraline HCL 25 MG TABLET PO (08:23)
[2024-03-31 08:24] VITALS: BP 131/80
[2024-03-31] MEDS: LORazepam 0.5 MG TABLET PO ×3 (08:24→20:21)
[2024-03-31] MEDS: lisinopriL 5 MG TABLET PO (08:24)
[2024-03-31] MEDS: Furosemide 20 MG TABLET PO (08:24)
[2024-03-31] MEDS: Atorvastatin Calcium 80 MG TABLET PO (08:24)
[2024-03-31] MEDS: guaiFENesin 200 MG/10 ML 10 ML LIQUID PO (08:57)
--- NOTE | 2024-03-31 09:49 | HO.PSYCHPN ---
Subjective Subjective Date of Service: 03/31/24 Reason For Visit: Bipolar, anxiety, PTSD Subjective Notes: Conditional Voluntary Interim History: The nursing staff reported that the patient has been compliant with medications and she was seen in the common areas. She has reported that she is feeling better, less AH. The nursing home social worker reported that unfortunately, she would need to have Invega Sustenna in the pharmacy, not by [facility]. On interview, she reported feeling better, discharge tomorrow. She asked if she could stay a few more days. Mental Status Exam Mental Status Exam Patient Appearance: Well Grooomed Patient Orientation: Person and Situation Level of Consciousness: Awake Patient Behavior: Guarded and Passive Mood Description: Withdrawn Affect Description: Constricted Patient Cognition Impaired: Yes Ability to Follow Directions: Good Speech Pattern: Clear Hallucinations: None Delusions: Ideas of Reference Thought Process: Distracted and Slowed Thinking Thought Content: positive for [place] and positive for [place] of Content Judgement: Fair Diagnostics Vital Signs (24Hr): Vital Signs - 24 hr 03/30/24 20:00 03/31/24 08:00 03/31/24 08:24 Temperature 97.3 F 97.7 F Pulse Rate 75 78 Respiratory Rate 16 17 Blood Pressure 131/60 131/80 131/80 Pulse Oximetry 93 95 Oxygen Delivery Method Room Air Room Air 03/31/24 08:24 Temperature Pulse Rate Respiratory Rate Blood Pressure 131/80 Pulse Oximetry Oxygen Delivery Method BMI result Body Mass Index 39.8 Labs 03/29/24 07:02 Medications Medications Current Medications Acetaminophen (Acetaminophen 325 Mg Tablet) 650 mg PO Q6H PRN PRN Reason: Headache/Pain Mild Scale (1-3) Last Admin: 03/24/24 08:34 Dose: 650 mg Al Hydroxide/Mg Hydroxide (Magnesium Hydrox/Alum Hydrox 30 Ml Oral.Susp) 30 ml PO Q6H PRN PRN Reason: Heartburn/Nausea Last Admin: 03/30/24 08:58 Dose: 30 ml Albuterol Sulfate (Albuterol Sulfate 90 Mcg 8 Gm Inhaler) 2 puff INHALE QID PRN PRN Reason: wheezing Aspirin (Aspirin Enteric Coated 325 Mg Tablet.) 325 mg PO BID [facility] Last Admin: 03/31/24 08:23 Dose: 325 mg Atorvastatin Calcium (Atorvastatin Calcium 80 Mg Tablet) 80 mg PO DAILY [facility] Last Admin: 03/31/24 08:24 Dose: 80 mg Docusate Sodium (Docusate Sodium 100 Mg Capsule) 100 mg PO BID PRN PRN Reason: Constipation Furosemide (Furosemide 20 Mg Tablet) 20 mg PO DAILY [facility]; Protocol Last Admin: 03/31/24 08:24 Dose: 20 mg Guaifenesin (Guaifenesin 200 Mg/10 Ml 10 Ml Liquid) 10 ml PO Q4H PRN PRN Reason: Cough Last Admin: 03/31/24 08:57 Dose: 10 ml Hydroxyzine HCl (Hydroxyzine Hcl 25 Mg Tablet) 25 mg PO Q6H PRN PRN Reason: Anxiety Last Admin: 03/27/24 16:48 Dose: 25 mg Levothyroxine Sodium (Levothyroxine Sodium 88 Mcg Tablet) 88 mcg PO DAILY@0600 [facility] Last Admin: 03/31/24 06:22 Dose: 88 mcg Lisinopril (Lisinopril 5 Mg Tablet) 5 mg PO DAILY [facility]; Protocol Last Admin: 03/31/24 08:24 Dose: 5 mg Lorazepam (Lorazepam 0.5 Mg Tablet) 0.5 mg PO TID [facility] Last Admin: 03/31/24 08:24 Dose: 0.5 mg Magnesium Hydroxide (Milk Of Magnesia 30 Ml Oral.Susp) 30 ml PO DAILY PRN PRN Reason: Constipation Last Admin: 03/27/24 11:59 Dose: 30 ml Mirabegron (Mirabegron 50 Mg Tab.Er.24h) 50 mg PO BEDTIME [facility] Last Admin: 03/30/24 20:22 Dose: 50 mg Omeprazole (Omeprazole 20 Mg Capsule.Dr) 20 mg PO DAILY@0630 [facility] Last Admin: 03/31/24 06:22 Dose: 20 mg Paliperidone Palmitate (Paliperidone Palmitate 234 Mg/1.5 Ml Syringe) 234 mg IM Q30D [facility] Last Admin: 03/19/24 15:32 Dose: 234 mg Quetiapine Fumarate (Quetiapine Fumarate 300 Mg Tablet) 300 mg PO BEDTIME [facility] Last Admin: 03/30/24 20:22 Dose: 300 mg Sertraline HCl (Sertraline Hcl 25 Mg Tablet) 25 mg PO DAILY [facility] Last Admin: 03/31/24 08:23 Dose: 25 mg Trazodone HCl (Trazodone Hcl 50 Mg Tablet) 50 mg PO BEDTIME MRX1 PRN PRN Reason: Insomnia Last Admin: 03/08/24 21:22 Dose: 50 mg Trazodone HCl (Trazodone Hcl 50 Mg Tablet) 150 mg PO BEDTIME [facility] Last Admin: 03/30/24 20:21 Dose: 150 mg Allergies Allergies Allergy/AdvReac Type Severity Reaction Status Date / Time Penicillins Allergy Unknown Unknown Verified 03/05/24 22:11 Assessment & Plan Assessment & Plan (1) Schizoaffective disorder: Status: Acute Code(s): F25.9 - Schizoaffective disorder, unspecified Plan Ms. Pedro is a 68 year-old woman with hx of schizoaffective disorder who was assessed by [employer] crisis at request of her outpatient psychiatrist, Dr. Natty Marte due to pt presenting as increasingly more paranoid and disorganized. She is covid positive. currently on isolation with no significant symptoms- no SOB, o2sat>96 on RA, afebrile. We discussed risks, benefits and alternative treatment options, will hold on antidepressants as will worsen psychosis, increase risperidone to 1mg po daily and 2mg po qhs. will add some ativan for catatonic-like symptoms including blank stare, mutism (or minimal spontaneous speech with significant delayed in responses). PLAN 1. admit to s1, cv, 15 minutes checks 2. increase risperidone 1mg po daily and 2mg po qhs. Risperdal was increased to 2 mg p.o. b.i.d. on March 09. March 14 we are increasing up to 2 mg in the morning and 3 at night. On March 15 we are increasing to Risperdal 3 mg p.o. b.i.d. 3. obtain collateral information 4. aftercare planning. 5. Seroquel will increase up to 300 mg p.o. q.h.s. on March 10. 6. Increase trazodone at night for sleep on March 17. On March 18 we are increasing trazodone up to 150 p.o. q.h.s. 7. Invega Sustenna 234mg IM received on 03/19. plan to taper off risperidone. Invega Sustenna 156 mg IM on 03/25. 8. Discontinue Risperdal p.o. on March 22. 9. Basic metabolic panel, lipid profile and hemoglobin A1c for next Friday. 10. Start on SSRIs , on a low dose of Zoloft 25 p.o. daily Reason for continued inpatient stay Substantial Risk for: inability to function, rapid decompensation and med/psych decompensation Time Spent With Patient Time: Total time managing care of this patient today __20__ minutes.
[2024-03-31 20:00] VITALS: BP 110/61; PULSE 74; TEMP 36.5; O2SAT 96
[2024-03-31] MEDS: traZODone HCL 50 MG TABLET 150 MG PO (20:20)
[2024-03-31] MEDS: Mirabegron 50 MG TAB.ER.24H PO (20:21)
[2024-03-31] MEDS: QUEtiapine Fumarate 300 MG TABLET PO (20:21)
[2024-04-01] MEDS: Omeprazole 20 MG CAPSULE.DR PO (05:53)
[2024-04-01] MEDS: Levothyroxine Sodium 88 MCG TABLET PO (05:53)
[2024-04-01 08:00] VITALS: BP 119/68; PULSE 82; RESP 18; TEMP 36.2; O2SAT 95
[2024-04-01] MEDS: LORazepam 0.5 MG TABLET PO ×2 (09:05→14:44)
[2024-04-01] MEDS: Sertraline HCL 50 MG TABLET PO (09:05)
[2024-04-01] MEDS: Aspirin Enteric Coated 325 MG TABLET.DR PO ×2 (09:05→20:12)
[2024-04-01 09:06] VITALS: BP 119/68
[2024-04-01] MEDS: lisinopriL 5 MG TABLET PO (09:06)
[2024-04-01] MEDS: Furosemide 20 MG TABLET PO (09:06)
[2024-04-01] MEDS: Acetaminophen 325 MG TABLET 650 MG PO (09:06)
[2024-04-01] MEDS: Atorvastatin Calcium 80 MG TABLET PO (09:06)
[2024-04-01] MEDS: Milk of Magnesia 30 ML ORAL.SUSP PO (09:11)
[2024-04-01] MEDS: guaiFENesin 200 MG/10 ML 10 ML LIQUID PO (09:11)
[2024-04-01 09:38] VITALS: BMI 39.7
--- NOTE | 2024-04-01 13:15 | HO.PSYCHPN ---
Subjective Subjective Date of Service: 04/01/24 Reason For Visit: Bipolar, anxiety, PTSD Subjective Notes: Conditional Voluntary Interim History: The nursing staff reported the patient had been compliant with treatment, no changes in his mental status. On interview the patient reports that she has feeling a little better less auditory hallucinations. Mental Status Exam Mental Status Exam Patient Appearance: Appropriate Patient Orientation: Person and Situation Level of Consciousness: Awake and Appropriate Patient Behavior: Guarded and Passive Mood Description: Withdrawn Affect Description: Constricted Patient Cognition Impaired: Yes Ability to Follow Directions: Good Speech Pattern: Clear Hallucinations: Auditory Delusions: Ideas of Reference Thought Process: Distracted and Slowed Thinking Thought Content: positive for [place] and positive for Circumstantial Judgement: Fair Diagnostics Vital Signs (24Hr): Vital Signs - 24 hr 03/31/24 20:00 04/01/24 08:00 04/01/24 09:06 Temperature 97.7 F 97.1 F Pulse Rate 74 82 Respiratory Rate 18 Blood Pressure 110/61 119/68 119/68 Pulse Oximetry 96 95 Oxygen Delivery Method Room Air Room Air 04/01/24 09:06 Temperature Pulse Rate Respiratory Rate Blood Pressure 119/68 Pulse Oximetry Oxygen Delivery Method BMI result Body Mass Index 39.7 Labs 03/29/24 07:02 Medications Medications Current Medications Acetaminophen (Acetaminophen 325 Mg Tablet) 650 mg PO Q6H PRN PRN Reason: Headache/Pain Mild Scale (1-3) Last Admin: 04/01/24 09:06 Dose: 650 mg Al Hydroxide/Mg Hydroxide (Magnesium Hydrox/Alum Hydrox 30 Ml Oral.Susp) 30 ml PO Q6H PRN PRN Reason: Heartburn/Nausea Last Admin: 03/30/24 08:58 Dose: 30 ml Albuterol Sulfate (Albuterol Sulfate 90 Mcg 8 Gm Inhaler) 2 puff INHALE QID PRN PRN Reason: wheezing Aspirin (Aspirin Enteric Coated 325 Mg Tablet.Dr) 325 mg PO BID [facility] Last Admin: 04/01/24 09:05 Dose: 325 mg Atorvastatin Calcium (Atorvastatin Calcium 80 Mg Tablet) 80 mg PO DAILY [facility] Last Admin: 04/01/24 09:06 Dose: 80 mg Docusate Sodium (Docusate Sodium 100 Mg Capsule) 100 mg PO BID PRN PRN Reason: Constipation Furosemide (Furosemide 20 Mg Tablet) 20 mg PO DAILY [facility]; Protocol Last Admin: 04/01/24 09:06 Dose: 20 mg Guaifenesin (Guaifenesin 200 Mg/10 Ml 10 Ml Liquid) 10 ml PO Q4H PRN PRN Reason: Cough Last Admin: 04/01/24 09:11 Dose: 10 ml Hydroxyzine HCl (Hydroxyzine Hcl 25 Mg Tablet) 25 mg PO Q6H PRN PRN Reason: Anxiety Last Admin: 03/27/24 16:48 Dose: 25 mg Levothyroxine Sodium (Levothyroxine Sodium 88 Mcg Tablet) 88 mcg PO DAILY@0600 [facility] Last Admin: 04/01/24 05:53 Dose: 88 mcg Lisinopril (Lisinopril 5 Mg Tablet) 5 mg PO DAILY [facility]; Protocol Last Admin: 04/01/24 09:06 Dose: 5 mg Lorazepam (Lorazepam 0.5 Mg Tablet) 0.5 mg PO TID [facility] Last Admin: 04/01/24 09:05 Dose: 0.5 mg Magnesium Hydroxide (Milk Of Magnesia 30 Ml Oral.Susp) 30 ml PO DAILY PRN PRN Reason: Constipation Last Admin: 04/01/24 09:11 Dose: 30 ml Mirabegron (Mirabegron 50 Mg Tab.Er.24h) 50 mg PO BEDTIME [facility] Last Admin: 03/31/24 20:21 Dose: 50 mg Omeprazole (Omeprazole 20 Mg Capsule.Dr) 20 mg PO DAILY@0630 [facility] Last Admin: 04/01/24 05:53 Dose: 20 mg Paliperidone Palmitate (Paliperidone Palmitate 234 Mg/1.5 Ml Syringe) 234 mg IM Q30D [facility] Last Admin: 03/19/24 15:32 Dose: 234 mg Quetiapine Fumarate (Quetiapine Fumarate 300 Mg Tablet) 300 mg PO BEDTIME [facility] Last Admin: 03/31/24 20:21 Dose: 300 mg Sertraline HCl (Sertraline Hcl 50 Mg Tablet) 50 mg PO DAILY [facility] Last Admin: 04/01/24 09:05 Dose: 50 mg Trazodone HCl (Trazodone Hcl 50 Mg Tablet) 50 mg PO BEDTIME MRX1 PRN PRN Reason: Insomnia Last Admin: 03/08/24 21:22 Dose: 50 mg Trazodone HCl (Trazodone Hcl 50 Mg Tablet) 150 mg PO BEDTIME [facility] Last Admin: 03/31/24 20:20 Dose: 150 mg Allergies Allergies Allergy/AdvReac Type Severity Reaction Status Date / Time Penicillins Allergy Unknown Unknown Verified 03/05/24 22:11 Assessment & Plan Assessment & Plan (1) Schizoaffective disorder: Status: Acute Code(s): F25.9 - Schizoaffective disorder, unspecified Plan Ms. Pedro is a 68 year-old woman with hx of schizoaffective disorder who was assessed by [employer] crisis at request of her outpatient psychiatrist, Dr. Natty Marte due to pt presenting as increasingly more paranoid and disorganized. She is covid positive. currently on isolation with no significant symptoms- no SOB, o2sat>96 on RA, afebrile. We discussed risks, benefits and alternative treatment options, will hold on antidepressants as will worsen psychosis, increase risperidone to 1mg po daily and 2mg po qhs. will add some ativan for catatonic-like symptoms including blank stare, mutism (or minimal spontaneous speech with significant delayed in responses). PLAN 1. admit to s1, cv, 15 minutes checks 2. increase risperidone 1mg po daily and 2mg po qhs. Risperdal was increased to 2 mg p.o. b.i.d. on March 09. March 14 we are increasing up to 2 mg in the morning and 3 at night. On March 15 we are increasing to Risperdal 3 mg p.o. b.i.d. 3. obtain collateral information 4. aftercare planning. 5. Seroquel will increase up to 300 mg p.o. q.h.s. on March 10. 6. Increase trazodone at night for sleep on March 17. On March 18 we are increasing trazodone up to 150 p.o. q.h.s. 7. Invega Sustenna 234mg IM received on 03/19. plan to taper off risperidone. Invega Sustenna 156 mg IM on 03/25. 8. Discontinue Risperdal p.o. on March 22. 9. Basic metabolic panel, lipid profile and hemoglobin A1c for next Friday. 10. Start on SSRIs , on a low dose of Zoloft 25 p.o. daily, we are increasing up to 50 mg p.o. daily on April 01. Reason for continued inpatient stay Substantial Risk for: inability to function, rapid decompensation and med/psych decompensation Time Spent With Patient Time: Total time managing care of this patient today __20__ minutes.
--- NOTE | 2024-04-01 17:46 | PC.NURSE ---
Patient medicated with Tylenol 650 for c/o bilateral knee pain and MOM for c/o constipation at 0911 with good effect.
[2024-04-01 20:00] VITALS: BP 118/69; PULSE 76; RESP 18; TEMP 36.1; O2SAT 95
[2024-04-01] MEDS: QUEtiapine Fumarate 300 MG TABLET PO (20:12)
[2024-04-01] MEDS: traZODone HCL 50 MG TABLET 150 MG PO (20:12)
[2024-04-01] MEDS: Mirabegron 50 MG TAB.ER.24H PO (20:12)
[2024-04-02] MEDS: hydrOXYzine HCL 25 MG TABLET PO (01:40)
[2024-04-02] MEDS: Omeprazole 20 MG CAPSULE.DR PO (05:57)
[2024-04-02] MEDS: Levothyroxine Sodium 88 MCG TABLET PO (05:57)
[2024-04-02 08:00] VITALS: BP 156/72; PULSE 78; RESP 18; TEMP 36.4; O2SAT 95
[2024-04-02 08:19] VITALS: BP 156/72
[2024-04-02] MEDS: lisinopriL 5 MG TABLET PO (08:19)
[2024-04-02] MEDS: Sertraline HCL 50 MG TABLET PO (08:19)
[2024-04-02 08:20] VITALS: BP 156/72
[2024-04-02] MEDS: Furosemide 20 MG TABLET PO (08:20)
[2024-04-02] MEDS: Aspirin Enteric Coated 325 MG TABLET.DR PO ×2 (08:20→20:58)
[2024-04-02] MEDS: Atorvastatin Calcium 80 MG TABLET PO (08:21)
--- NOTE | 2024-04-02 12:14 | HO.PSYCHPN ---
Subjective Subjective Date of Service: 04/02/24 Reason For Visit: Bipolar, anxiety, PTSD Subjective Notes: Conditional Voluntary Interim History: The nursing staff reported the patient had an x-ray of her knee she had been complaining of chronic knee pain. She slept poorly last night but she had not been responding to internal stimuli still internally preoccupied. On interview the patient reports improvement there is mild delayed on her thought process but overall she looks better. He complained of poor sleep last night and she agreed increase trazodone. We are going to try for discharge next Friday. Mental Status Exam Mental Status Exam Patient Appearance: Appropriate Patient Orientation: Person and Situation Level of Consciousness: Awake and Appropriate Patient Behavior: Guarded and Passive Mood Description: Withdrawn Affect Description: Constricted Patient Cognition Impaired: Yes Ability to Follow Directions: Good Speech Pattern: Clear Hallucinations: None Delusions: Ideas of Reference Thought Process: Distracted and Slowed Thinking Thought Content: positive for [place] and positive for Poverty of Content Judgement: Fair Diagnostics Vital Signs (24Hr): Vital Signs - 24 hr 04/01/24 20:00 04/02/24 08:00 04/02/24 08:19 Temperature 97.0 F 97.5 F Pulse Rate 76 78 Respiratory Rate 18 18 Blood Pressure 118/69 156/72 H 156/72 H Pulse Oximetry 95 95 Oxygen Delivery Method Room Air Room Air 04/02/24 08:20 Temperature Pulse Rate Respiratory Rate Blood Pressure 156/72 H Pulse Oximetry Oxygen Delivery Method BMI result Body Mass Index 39.7 Labs 03/29/24 07:02 Medications Medications Current Medications Acetaminophen (Acetaminophen 325 Mg Tablet) 650 mg PO Q6H PRN PRN Reason: Headache/Pain Mild Scale (1-3) Last Admin: 04/01/24 09:06 Dose: 650 mg Al Hydroxide/Mg Hydroxide (Magnesium Hydrox/Alum Hydrox 30 Ml Oral.Susp) 30 ml PO Q6H PRN PRN Reason: Heartburn/Nausea Last Admin: 03/30/24 08:58 Dose: 30 ml Albuterol Sulfate (Albuterol Sulfate 90 Mcg 8 Gm Inhaler) 2 puff INHALE QID PRN PRN Reason: wheezing Aspirin (Aspirin Enteric Coated 325 Mg Tablet.) 325 mg PO BID [facility] Last Admin: 04/02/24 08:20 Dose: 325 mg Atorvastatin Calcium (Atorvastatin Calcium 80 Mg Tablet) 80 mg PO DAILY [facility] Last Admin: 04/02/24 08:21 Dose: 80 mg Docusate Sodium (Docusate Sodium 100 Mg Capsule) 100 mg PO BID PRN PRN Reason: Constipation Furosemide (Furosemide 20 Mg Tablet) 20 mg PO DAILY [facility]; Protocol Last Admin: 04/02/24 08:20 Dose: 20 mg Guaifenesin (Guaifenesin 200 Mg/10 Ml 10 Ml Liquid) 10 ml PO Q4H PRN PRN Reason: Cough Last Admin: 04/01/24 09:11 Dose: 10 ml Hydroxyzine HCl (Hydroxyzine Hcl 25 Mg Tablet) 25 mg PO Q6H PRN PRN Reason: Anxiety Last Admin: 04/02/24 01:40 Dose: 25 mg Levothyroxine Sodium (Levothyroxine Sodium 88 Mcg Tablet) 88 mcg PO DAILY@0600 [facility] Last Admin: 04/02/24 05:57 Dose: 88 mcg Lisinopril (Lisinopril 5 Mg Tablet) 5 mg PO DAILY [facility]; Protocol Last Admin: 04/02/24 08:19 Dose: 5 mg Magnesium Hydroxide (Milk Of Magnesia 30 Ml Oral.Susp) 30 ml PO DAILY PRN PRN Reason: Constipation Last Admin: 04/01/24 09:11 Dose: 30 ml Mirabegron (Mirabegron 50 Mg Tab.Er.24h) 50 mg PO BEDTIME [facility] Last Admin: 04/01/24 20:12 Dose: 50 mg Omeprazole (Omeprazole 20 Mg Capsule.Dr) 20 mg PO DAILY@0630 [facility] Last Admin: 04/02/24 05:57 Dose: 20 mg Paliperidone Palmitate (Paliperidone Palmitate 234 Mg/1.5 Ml Syringe) 234 mg IM Q30D [facility] Last Admin: 03/19/24 15:32 Dose: 234 mg Quetiapine Fumarate (Quetiapine Fumarate 300 Mg Tablet) 300 mg PO BEDTIME [facility] Last Admin: 04/01/24 20:12 Dose: 300 mg Sertraline HCl (Sertraline Hcl 50 Mg Tablet) 50 mg PO DAILY [facility] Last Admin: 04/02/24 08:19 Dose: 50 mg Trazodone HCl (Trazodone Hcl 50 Mg Tablet) 50 mg PO BEDTIME MRX1 PRN PRN Reason: Insomnia Last Admin: 03/08/24 21:22 Dose: 50 mg Trazodone HCl (Trazodone Hcl 50 Mg Tablet) 150 mg PO BEDTIME [facility] Last Admin: 04/01/24 20:12 Dose: 150 mg Allergies Allergies Allergy/AdvReac Type Severity Reaction Status Date / Time Penicillins Allergy Unknown Unknown Verified 03/05/24 22:11 Assessment & Plan Assessment & Plan (1) Schizoaffective disorder: Status: Acute Code(s): F25.9 - Schizoaffective disorder, unspecified Plan Ms. Pedro is a 68 year-old woman with hx of schizoaffective disorder who was assessed by [facility] at request of her outpatient psychiatrist, Dr. Natty Marte due to pt presenting as increasingly more paranoid and disorganized. She is covid positive. currently on isolation with no significant symptoms- no SOB, o2sat>96 on RA, afebrile. We discussed risks, benefits and alternative treatment options, will hold on antidepressants as will worsen psychosis, increase risperidone to 1mg po daily and 2mg po qhs. will add some ativan for catatonic-like symptoms including blank stare, mutism (or minimal spontaneous speech with significant delayed in responses). PLAN 1. admit to s1, cv, 15 minutes checks 2. increase risperidone 1mg po daily and 2mg po qhs. Risperdal was increased to 2 mg p.o. b.i.d. on March 09. March 14 we are increasing up to 2 mg in the morning and 3 at night. On March 15 we are increasing to Risperdal 3 mg p.o. b.i.d. 3. obtain collateral information 4. aftercare planning. 5. Seroquel will increase up to 300 mg p.o. q.h.s. on March 10. 6. Increase trazodone at night for sleep on March 17. On March 18 we are increasing trazodone up to 150 p.o. q.h.s. on April 02 we increase trazodone up to 200 mg p.o. q.h.s. to target insomnia and depression. 7. Invega Sustenna 234mg IM received on 03/19. plan to taper off risperidone. Invega Sustenna 156 mg IM on 03/25. 8. Discontinue Risperdal p.o. on March 22. 9. Basic metabolic panel, lipid profile and hemoglobin A1c for next Friday. 10. Start on SSRIs , on a low dose of Zoloft 25 p.o. daily, we are increasing up to 50 mg p.o. daily on April 01. Reason for continued inpatient stay Substantial Risk for: inability to function, rapid decompensation and med/psych decompensation Time Spent With Patient Time: Total time managing care of this patient today __20__ minutes.
[2024-04-02 20:00] VITALS: BP 153/77; PULSE 69; RESP 16; TEMP 36.6; O2SAT 94
[2024-04-02] MEDS: Mirabegron 50 MG TAB.ER.24H PO (20:58)
[2024-04-02] MEDS: traZODone HCL 100 MG TABLET 200 MG PO (20:58)
[2024-04-02] MEDS: QUEtiapine Fumarate 300 MG TABLET PO (20:58)
[2024-04-03] MEDS: Levothyroxine Sodium 88 MCG TABLET PO (06:17)
[2024-04-03] MEDS: Omeprazole 20 MG CAPSULE.DR PO (06:17)
[2024-04-03 08:00] VITALS: BP 170/77; PULSE 77; RESP 17; TEMP 36.2; O2SAT 95
[2024-04-03 08:32] VITALS: BP 170/77
[2024-04-03] MEDS: Furosemide 20 MG TABLET PO (08:32)
[2024-04-03 08:33] VITALS: BP 170/77
[2024-04-03] MEDS: Atorvastatin Calcium 80 MG TABLET PO (08:33)
[2024-04-03] MEDS: lisinopriL 5 MG TABLET PO (08:33)
[2024-04-03] MEDS: Aspirin Enteric Coated 325 MG TABLET.DR PO ×2 (08:33→19:51)
[2024-04-03] MEDS: Sertraline HCL 50 MG TABLET PO (08:33)
--- NOTE | 2024-04-03 09:00 | HO.PSYCHPN ---
Subjective Subjective Date of Service: 04/03/24 Reason For Visit: Bipolar, anxiety, PTSD Interim History: The nursing staff reported the patient slept well. Patient says her sleep was so so. Feels mood has been improving.She denies any pain today. Primary team working on DC plans. Review of Systems Review of Systems General: No fevers, malaise, unintentional weight loss HEENT: No blurred vision, diplopia. No sore throat, nasal congestion, rhinorrhea, sinus pain, ear pain Cardiovascular: No chest pain, palpitations, or leg edema Respiratory: +cough. No shortness of breath, wheezing GI: No abdominal pain, nausea, vomiting, diarrhea, constipation, melena, hematochezia : No dysuria, hematuria, increased urinary frequency, decreased urinary output MSK: No myalgia, back pain Neuro: No headaches, weakness, paresthesias Skin: No rashes or lesions Yes all other systems are reviewed and are negative Mental Status Exam Mental Status Exam Narrative: Behavior: Superficially pleasant Psychomotor: some retardation noted Speech: mostly clear, delayed responses, minimally spontaneous TP: some disorganization TC: feeling t better Mood: okay' Affect: constricted, mask-like facial expression SI: denies HI: denies VH/AH: internally preoccupied Delusions: paranoid delusions Insight/judgment: impaired x 2. memory/cog: alert, oriented x 3. not formally tested. Patient Appearance: Appropriate Patient Orientation: Person and Situation Level of Consciousness: Awake and Appropriate Patient Behavior: Guarded and Passive Mood Description: Withdrawn Affect Description: Constricted Patient Cognition Impaired: Yes Ability to Follow Directions: Good Speech Pattern: Clear Diagnostics Vital Signs (24Hr): Vital Signs - 24 hr 04/02/24 20:00 04/03/24 08:00 04/03/24 08:32 Temperature 97.9 F 97.2 F Pulse Rate 69 77 Respiratory Rate 16 17 Blood Pressure 153/77 H 170/77 H 170/77 H Pulse Oximetry 94 95 Oxygen Delivery Method Room Air Room Air 04/03/24 08:33 Temperature Pulse Rate Respiratory Rate Blood Pressure 170/77 H Pulse Oximetry Oxygen Delivery Method BMI result Body Mass Index 39.7 Labs 03/29/24 07:02 Medications Medications Current Medications Acetaminophen (Acetaminophen 325 Mg Tablet) 650 mg PO Q6H PRN PRN Reason: Headache/Pain Mild Scale (1-3) Last Admin: 04/01/24 09:06 Dose: 650 mg Al Hydroxide/Mg Hydroxide (Magnesium Hydrox/Alum Hydrox 30 Ml Oral.Susp) 30 ml PO Q6H PRN PRN Reason: Heartburn/Nausea Last Admin: 03/30/24 08:58 Dose: 30 ml Albuterol Sulfate (Albuterol Sulfate 90 Mcg 8 Gm Inhaler) 2 puff INHALE QID PRN PRN Reason: wheezing Aspirin (Aspirin Enteric Coated 325 Mg Tablet.Dr) 325 mg PO BID [facility] Last Admin: 04/03/24 08:33 Dose: 325 mg Atorvastatin Calcium (Atorvastatin Calcium 80 Mg Tablet) 80 mg PO DAILY [facility] Last Admin: 04/03/24 08:33 Dose: 80 mg Docusate Sodium (Docusate Sodium 100 Mg Capsule) 100 mg PO BID PRN PRN Reason: Constipation Furosemide (Furosemide 20 Mg Tablet) 20 mg PO DAILY [facility]; Protocol Last Admin: 04/03/24 08:32 Dose: 20 mg Guaifenesin (Guaifenesin 200 Mg/10 Ml 10 Ml Liquid) 10 ml PO Q4H PRN PRN Reason: Cough Last Admin: 04/01/24 09:11 Dose: 10 ml Hydroxyzine HCl (Hydroxyzine Hcl 25 Mg Tablet) 25 mg PO Q6H PRN PRN Reason: Anxiety Last Admin: 04/02/24 01:40 Dose: 25 mg Levothyroxine Sodium (Levothyroxine Sodium 88 Mcg Tablet) 88 mcg PO DAILY@0600 [facility] Last Admin: 04/03/24 06:17 Dose: 88 mcg Lisinopril (Lisinopril 5 Mg Tablet) 5 mg PO DAILY [facility]; Protocol Last Admin: 04/03/24 08:33 Dose: 5 mg Lorazepam (Lorazepam 0.5 Mg Tablet) 0.5 mg PO TID PRN PRN Reason: Anxiety Magnesium Hydroxide (Milk Of Magnesia 30 Ml Oral.Susp) 30 ml PO DAILY PRN PRN Reason: Constipation Last Admin: 04/01/24 09:11 Dose: 30 ml Mirabegron (Mirabegron 50 Mg Tab.Er.24h) 50 mg PO BEDTIME [facility] Last Admin: 04/02/24 20:58 Dose: 50 mg Omeprazole (Omeprazole 20 Mg Capsule.) 20 mg PO DAILY@0630 [facility] Last Admin: 04/03/24 06:17 Dose: 20 mg Paliperidone Palmitate (Paliperidone Palmitate 234 Mg/1.5 Ml Syringe) 234 mg IM Q30D [facility] Last Admin: 03/19/24 15:32 Dose: 234 mg Quetiapine Fumarate (Quetiapine Fumarate 300 Mg Tablet) 300 mg PO BEDTIME [facility] Last Admin: 04/02/24 20:58 Dose: 300 mg Sertraline HCl (Sertraline Hcl 50 Mg Tablet) 50 mg PO DAILY [facility] Last Admin: 04/03/24 08:33 Dose: 50 mg Trazodone HCl (Trazodone Hcl 50 Mg Tablet) 50 mg PO BEDTIME MRX1 PRN PRN Reason: Insomnia Last Admin: 03/08/24 21:22 Dose: 50 mg Trazodone HCl (Trazodone Hcl 100 Mg Tablet) 200 mg PO BEDTIME [facility] Last Admin: 04/02/24 20:58 Dose: 200 mg Allergies Allergies Allergy/AdvReac Type Severity Reaction Status Date / Time Penicillins Allergy Unknown Unknown Verified 03/05/24 22:11 Assessment & Plan Assessment & Plan (1) Schizoaffective disorder: Status: Acute Code(s): F25.9 - Schizoaffective disorder, unspecified Plan Ms. Pedro is a 68 year-old woman with hx of schizoaffective disorder who was assessed by [facility] at request of her outpatient psychiatrist, Dr. Natty Marte due to pt presenting as increasingly more paranoid and disorganized. She is covid positive. currently on isolation with no significant symptoms- no SOB, o2sat>96 on RA, afebrile. We discussed risks, benefits and alternative treatment options, will hold on antidepressants as will worsen psychosis, increase risperidone to 1mg po daily and 2mg po qhs. will add some ativan for catatonic-like symptoms including blank stare, mutism (or minimal spontaneous speech with significant delayed in responses). PLAN 1. admit to s1, cv, 15 minutes checks 2. increase risperidone 1mg po daily and 2mg po qhs. Risperdal was increased to 2 mg p.o. b.i.d. on March 09. March 14 we are increasing up to 2 mg in the morning and 3 at night. On March 15 we are increasing to Risperdal 3 mg p.o. b.i.d. 3. obtain collateral information 4. aftercare planning. 5. Seroquel will increase up to 300 mg p.o. q.h.s. on March 10. 6. Increase trazodone at night for sleep on March 17. On March 18 we are increasing trazodone up to 150 p.o. q.h.s. on April 02 we increase trazodone up to 200 mg p.o. q.h.s. to target insomnia and depression. 7. Invega Sustenna 234mg IM received on 03/19. plan to taper off risperidone. Invega Sustenna 156 mg IM on 03/25. 8. Discontinue Risperdal p.o. on March 22. 9. Basic metabolic panel, lipid profile and hemoglobin A1c for next Friday. 10. Start on SSRIs , on a low dose of Zoloft 25 p.o. daily, we are increasing up to 50 mg p.o. daily on April 01. 04/03: continue current management and treatment plan. Reason for continued inpatient stay Substantial Risk for: inability to function and rapid decompensation Time Spent With Patient Time: Total time managing care of this patient today ____ minutes.
[2024-04-03] MEDS: traZODone HCL 100 MG TABLET 200 MG PO (19:50)
[2024-04-03] MEDS: QUEtiapine Fumarate 300 MG TABLET PO (19:50)
[2024-04-03] MEDS: Mirabegron 50 MG TAB.ER.24H PO (19:51)
[2024-04-03 20:00] VITALS: BP 150/70; PULSE 69; RESP 18; TEMP 36.3; O2SAT 96
[2024-04-04] MEDS: Levothyroxine Sodium 88 MCG TABLET PO (06:20)
[2024-04-04] MEDS: Omeprazole 20 MG CAPSULE.DR PO (06:20)
[2024-04-04 08:00] VITALS: BP 134/64; PULSE 77; RESP 17; TEMP 36; O2SAT 93
[2024-04-04 08:11] VITALS: BP 134/64
[2024-04-04] MEDS: Furosemide 20 MG TABLET PO (08:11)
[2024-04-04] MEDS: Sertraline HCL 50 MG TABLET PO (08:11)
[2024-04-04 08:12] VITALS: BP 134/64
[2024-04-04] MEDS: Aspirin Enteric Coated 325 MG TABLET.DR PO ×2 (08:12→20:10)
[2024-04-04] MEDS: lisinopriL 5 MG TABLET PO (08:12)
[2024-04-04] MEDS: Atorvastatin Calcium 80 MG TABLET PO (08:12)
--- NOTE | 2024-04-04 16:03 | HO.PSYCHPN ---
Subjective Subjective Date of Service: 04/04/24 Reason For Visit: Bipolar, anxiety, PTSD Interim History: Patient has been tearful and sad today saying that she hears the voice of her son and she thinks he is going to and she will not be able to see him. The nursing staff reported the patient slept well. She denies any pain today. Primary team working on DC plans. Review of Systems Review of Systems General: No fevers, malaise, unintentional weight loss HEENT: No blurred vision, diplopia. No sore throat, nasal congestion, rhinorrhea, sinus pain, ear pain Cardiovascular: No chest pain, palpitations, or leg edema Respiratory: +cough. No shortness of breath, wheezing GI: No abdominal pain, nausea, vomiting, diarrhea, constipation, melena, hematochezia : No dysuria, hematuria, increased urinary frequency, decreased urinary output MSK: No myalgia, back pain Neuro: No headaches, weakness, paresthesias Skin: No rashes or lesions Yes all other systems are reviewed and are negative Mental Status Exam Mental Status Exam Narrative: Behavior: Superficially pleasant Psychomotor: some retardation noted Speech: mostly clear, delayed responses, minimally spontaneous TP: some disorganization TC: feeling t better Mood: okay' Affect: constricted, mask-like facial expression SI: denies HI: denies VH/AH: internally preoccupied Delusions: paranoid delusions Insight/judgment: impaired x 2. memory/cog: alert, oriented x 3. not formally tested. Patient Appearance: Appropriate Patient Orientation: Person and Situation Level of Consciousness: Awake and Appropriate Patient Behavior: Guarded and Passive Mood Description: Withdrawn Affect Description: Constricted Patient Cognition Impaired: Yes Ability to Follow Directions: Good Speech Pattern: Clear Diagnostics Vital Signs (24Hr): Vital Signs - 24 hr 04/03/24 20:00 04/04/24 08:00 04/04/24 08:11 Temperature 97.3 F 96.8 F Pulse Rate 69 77 Respiratory Rate 18 17 Blood Pressure 150/70 H 134/64 134/64 Pulse Oximetry 96 93 Oxygen Delivery Method Room Air Room Air 04/04/24 08:12 Temperature Pulse Rate Respiratory Rate Blood Pressure 134/64 Pulse Oximetry Oxygen Delivery Method BMI result Body Mass Index 39.7 Labs 03/29/24 07:02 Medications Medications Current Medications Acetaminophen (Acetaminophen 325 Mg Tablet) 650 mg PO Q6H PRN PRN Reason: Headache/Pain Mild Scale (1-3) Last Admin: 04/01/24 09:06 Dose: 650 mg Al Hydroxide/Mg Hydroxide (Magnesium Hydrox/Alum Hydrox 30 Ml Oral.Susp) 30 ml PO Q6H PRN PRN Reason: Heartburn/Nausea Last Admin: 03/30/24 08:58 Dose: 30 ml Albuterol Sulfate (Albuterol Sulfate 90 Mcg 8 Gm Inhaler) 2 puff INHALE QID PRN PRN Reason: wheezing Aspirin (Aspirin Enteric Coated 325 Mg Tablet.Dr) 325 mg PO BID [facility]PL[facility] Last Admin: 04/04/24 08:12 Dose: 325 mg Atorvastatin Calcium (Atorvastatin Calcium 80 Mg Tablet) 80 mg PO DAILY [facility] Last Admin: 04/04/24 08:12 Dose: 80 mg Docusate Sodium (Docusate Sodium 100 Mg Capsule) 100 mg PO BID PRN PRN Reason: Constipation Furosemide (Furosemide 20 Mg Tablet) 20 mg PO DAILY [facility]; Protocol Last Admin: 04/04/24 08:11 Dose: 20 mg Guaifenesin (Guaifenesin 200 Mg/10 Ml 10 Ml Liquid) 10 ml PO Q4H PRN PRN Reason: Cough Last Admin: 04/01/24 09:11 Dose: 10 ml Hydroxyzine HCl (Hydroxyzine Hcl 25 Mg Tablet) 25 mg PO Q6H PRN PRN Reason: Anxiety Last Admin: 04/02/24 01:40 Dose: 25 mg Levothyroxine Sodium (Levothyroxine Sodium 88 Mcg Tablet) 88 mcg PO DAILY@0600 [facility]PL[facility] Last Admin: 04/04/24 06:20 Dose: 88 mcg Lisinopril (Lisinopril 5 Mg Tablet) 5 mg PO DAILY [facility]; Protocol Last Admin: 04/04/24 08:12 Dose: 5 mg Lorazepam (Lorazepam 0.5 Mg Tablet) 0.5 mg PO TID PRN PRN Reason: Anxiety Magnesium Hydroxide (Milk Of Magnesia 30 Ml Oral.Susp) 30 ml PO DAILY PRN PRN Reason: Constipation Last Admin: 04/01/24 09:11 Dose: 30 ml Mirabegron (Mirabegron 50 Mg Tab.Er.24h) 50 mg PO BEDTIME [facility]PL[facility] Last Admin: 04/03/24 19:51 Dose: 50 mg Omeprazole (Omeprazole 20 Mg Capsule.) 20 mg PO DAILY@0630 [facility]PL[facility] Last Admin: 04/04/24 06:20 Dose: 20 mg Paliperidone Palmitate (Paliperidone Palmitate 234 Mg/1.5 Ml Syringe) 234 mg IM Q30D REPLACED BY [facility] Last Admin: 03/19/24 15:32 Dose: 234 mg Quetiapine Fumarate (Quetiapine Fumarate 300 Mg Tablet) 300 mg PO BEDTIME REPLACED [facility] Last Admin: 04/03/24 19:50 Dose: 300 mg Quetiapine Fumarate (Quetiapine Fumarate 25 Mg Tablet) 25 mg PO BID PRN PRN Reason: hallucinations Sertraline HCl (Sertraline Hcl 50 Mg Tablet) 50 mg PO DAILY [facility]PL[facility] Last Admin: 04/04/24 08:11 Dose: 50 mg Trazodone HCl (Trazodone Hcl 50 Mg Tablet) 50 mg PO BEDTIME MRX1 PRN PRN Reason: Insomnia Last Admin: 03/08/24 21:22 Dose: 50 mg Trazodone HCl (Trazodone Hcl 100 Mg Tablet) 200 mg PO BEDTIME REPLACED [facility] Last Admin: 04/03/24 19:50 Dose: 200 mg Allergies Allergies Allergy/AdvReac Type Severity Reaction Status Date / Time Penicillins Allergy Unknown Unknown Verified 03/05/24 22:11 Assessment & Plan Assessment & Plan (1) Schizoaffective disorder: Status: Acute Code(s): F25.9 - Schizoaffective disorder, unspecified Plan Ms. Pedro is a 68 year-old woman with hx of schizoaffective disorder who was assessed by [facility] at request of her outpatient psychiatrist, Dr. Natty Marte due to pt presenting as increasingly more paranoid and disorganized. She is covid positive. currently on isolation with no significant symptoms- no SOB, o2sat>96 on RA, afebrile. We discussed risks, benefits and alternative treatment options, will hold on antidepressants as will worsen psychosis, increase risperidone to 1mg po daily and 2mg po qhs. will add some ativan for catatonic-like symptoms including blank stare, mutism (or minimal spontaneous speech with significant delayed in responses). PLAN 1. admit to s1, cv, 15 minutes checks 2. increase risperidone 1mg po daily and 2mg po qhs. Risperdal was increased to 2 mg p.o. b.i.d. on March 09. March 14 we are increasing up to 2 mg in the morning and 3 at night. On March 15 we are increasing to Risperdal 3 mg p.o. b.i.d. 3. obtain collateral information 4. aftercare planning. 5. Seroquel will increase up to 300 mg p.o. q.h.s. on March 10. 6. Increase trazodone at night for sleep on March 17. On March 18 we are increasing trazodone up to 150 p.o. q.h.s. on April 02 we increase trazodone up to 200 mg p.o. q.h.s. to target insomnia and depression. 7. Invega Sustenna 234mg IM received on 03/19. plan to taper off risperidone. Invega Sustenna 156 mg IM on 03/25. 8. Discontinue Risperdal p.o. on March 22. 9. Basic metabolic panel, lipid profile and hemoglobin A1c for next Friday. 10. Start on SSRIs , on a low dose of Zoloft 25 p.o. daily, we are increasing up to 50 mg p.o. daily on April 01. 04/03: continue current management and treatment plan. 04/04: Add Seroquel 25 mg PRN hallucinations. Otherwise continue current management and treatment plan. Reason for continued inpatient stay Substantial Risk for: inability to function and rapid decompensation Time Spent With Patient Time: Total time managing care of this patient today ____ minutes.
[2024-04-04 19:42] VITALS: BP 143/75; PULSE 68; RESP 16; TEMP 36.1; O2SAT 96
[2024-04-04] MEDS: Mirabegron 50 MG TAB.ER.24H PO (20:10)
[2024-04-04] MEDS: QUEtiapine Fumarate 300 MG TABLET PO (20:10)
[2024-04-04] MEDS: traZODone HCL 100 MG TABLET 200 MG PO (20:10)
[2024-04-05] MEDS: Omeprazole 20 MG CAPSULE.DR PO (06:34)
[2024-04-05] MEDS: Levothyroxine Sodium 88 MCG TABLET PO (06:34)
[2024-04-05 08:00] VITALS: BP 156/81; PULSE 76; RESP 16; TEMP 36.2; O2SAT 95
[2024-04-05 08:21] VITALS: BP 156/81
[2024-04-05] MEDS: Aspirin Enteric Coated 325 MG TABLET.DR PO ×2 (08:21→21:06)
[2024-04-05] MEDS: Sertraline HCL 50 MG TABLET PO (08:21)
[2024-04-05] MEDS: lisinopriL 5 MG TABLET PO (08:21)
[2024-04-05] MEDS: Furosemide 20 MG TABLET PO (08:21)
[2024-04-05] MEDS: Atorvastatin Calcium 80 MG TABLET PO (08:21)
--- NOTE | 2024-04-05 10:56 | HO.PSYCHPN ---
Subjective Subjective Date of Service: 04/05/24 Reason For Visit: Bipolar, anxiety, PTSD Interim History: Patient has been doing better today. Less tearful and sad today. The nursing staff reported the patient slept well. She denies any pain today. Primary team working on DC plans. Review of Systems Review of Systems General: No fevers, malaise, unintentional weight loss HEENT: No blurred vision, diplopia. No sore throat, nasal congestion, rhinorrhea, sinus pain, ear pain Cardiovascular: No chest pain, palpitations, or leg edema Respiratory: +cough. No shortness of breath, wheezing GI: No abdominal pain, nausea, vomiting, diarrhea, constipation, melena, hematochezia : No dysuria, hematuria, increased urinary frequency, decreased urinary output MSK: No myalgia, back pain Neuro: No headaches, weakness, paresthesias Skin: No rashes or lesions Yes all other systems are reviewed and are negative Mental Status Exam Mental Status Exam Narrative: Behavior: Superficially pleasant Psychomotor: some retardation noted Speech: mostly clear, delayed responses, minimally spontaneous TP: some disorganization TC: feeling t better Mood: okay' Affect: constricted, mask-like facial expression SI: denies HI: denies VH/AH: internally preoccupied Delusions: paranoid delusions Insight/judgment: impaired x 2. memory/cog: alert, oriented x 3. not formally tested. Patient Appearance: Appropriate Patient Orientation: Person and Situation Level of Consciousness: Awake and Appropriate Patient Behavior: Guarded and Passive Mood Description: Withdrawn Affect Description: Constricted Patient Cognition Impaired: Yes Ability to Follow Directions: Good Speech Pattern: Clear Diagnostics Vital Signs (24Hr): Vital Signs - 24 hr 04/04/24 19:42 04/05/24 08:00 04/05/24 08:21 Temperature 97 F 97.2 F Pulse Rate 68 76 Respiratory Rate 16 16 Blood Pressure 143/75 H 156/81 H 156/81 H Pulse Oximetry 96 95 Oxygen Delivery Method Room Air Room Air 04/05/24 08:21 Temperature Pulse Rate Respiratory Rate Blood Pressure 156/81 H Pulse Oximetry Oxygen Delivery Method BMI result Body Mass Index 39.7 Labs 03/29/24 07:02 Medications Medications Current Medications Acetaminophen (Acetaminophen 325 Mg Tablet) 650 mg PO Q6H PRN PRN Reason: Headache/Pain Mild Scale (1-3) Last Admin: 04/01/24 09:06 Dose: 650 mg Al Hydroxide/Mg Hydroxide (Magnesium Hydrox/Alum Hydrox 30 Ml Oral.Susp) 30 ml PO Q6H PRN PRN Reason: Heartburn/Nausea Last Admin: 03/30/24 08:58 Dose: 30 ml Albuterol Sulfate (Albuterol Sulfate 90 Mcg 8 Gm Inhaler) 2 puff INHALE QID PRN PRN Reason: wheezing Aspirin (Aspirin Enteric Coated 325 Mg Tablet.) 325 mg PO BID [facility] Last Admin: 04/05/24 08:21 Dose: 325 mg Atorvastatin Calcium (Atorvastatin Calcium 80 Mg Tablet) 80 mg PO DAILY [facility] Last Admin: 04/05/24 08:21 Dose: 80 mg Docusate Sodium (Docusate Sodium 100 Mg Capsule) 100 mg PO BID PRN PRN Reason: Constipation Furosemide (Furosemide 20 Mg Tablet) 20 mg PO DAILY [facility]; Protocol Last Admin: 04/05/24 08:21 Dose: 20 mg Guaifenesin (Guaifenesin 200 Mg/10 Ml 10 Ml Liquid) 10 ml PO Q4H PRN PRN Reason: Cough Last Admin: 04/01/24 09:11 Dose: 10 ml Hydroxyzine HCl (Hydroxyzine Hcl 25 Mg Tablet) 25 mg PO Q6H PRN PRN Reason: Anxiety Last Admin: 04/02/24 01:40 Dose: 25 mg Levothyroxine Sodium (Levothyroxine Sodium 88 Mcg Tablet) 88 mcg PO DAILY@0600 [facility] Last Admin: 04/05/24 06:34 Dose: 88 mcg Lisinopril (Lisinopril 5 Mg Tablet) 5 mg PO DAILY [facility]; Protocol Last Admin: 04/05/24 08:21 Dose: 5 mg Lorazepam (Lorazepam 0.5 Mg Tablet) 0.5 mg PO TID PRN PRN Reason: Anxiety Magnesium Hydroxide (Milk Of Magnesia 30 Ml Oral.Susp) 30 ml PO DAILY PRN PRN Reason: Constipation Last Admin: 04/01/24 09:11 Dose: 30 ml Mirabegron (Mirabegron 50 Mg Tab.Er.24h) 50 mg PO BEDTIME [facility] Last Admin: 04/04/24 20:10 Dose: 50 mg Omeprazole (Omeprazole 20 Mg Capsule.) 20 mg PO DAILY@0630 [facility] Last Admin: 04/05/24 06:34 Dose: 20 mg Paliperidone Palmitate (Paliperidone Palmitate 234 Mg/1.5 Ml Syringe) 234 mg IM Q30D [facility] Last Admin: 03/19/24 15:32 Dose: 234 mg Quetiapine Fumarate (Quetiapine Fumarate 300 Mg Tablet) 300 mg PO BEDTIME [facility] Last Admin: 04/04/24 20:10 Dose: 300 mg Quetiapine Fumarate (Quetiapine Fumarate 25 Mg Tablet) 25 mg PO BID PRN PRN Reason: hallucinations Sertraline HCl (Sertraline Hcl 50 Mg Tablet) 50 mg PO DAILY [facility] Last Admin: 04/05/24 08:21 Dose: 50 mg Trazodone HCl (Trazodone Hcl 50 Mg Tablet) 50 mg PO BEDTIME MRX1 PRN PRN Reason: Insomnia Last Admin: 03/08/24 21:22 Dose: 50 mg Trazodone HCl (Trazodone Hcl 100 Mg Tablet) 200 mg PO BEDTIME [facility] Last Admin: 04/04/24 20:10 Dose: 200 mg Allergies Allergies Allergy/AdvReac Type Severity Reaction Status Date / Time Penicillins Allergy Unknown Unknown Verified 03/05/24 22:11 Assessment & Plan Assessment & Plan (1) Schizoaffective disorder: Status: Acute Code(s): F25.9 - Schizoaffective disorder, unspecified Plan Ms. Pedro is a 68 year-old woman with hx of schizoaffective disorder who was assessed by [employer] [facility] at request of her outpatient psychiatrist, Dr. Natty Marte due to pt presenting as increasingly more paranoid and disorganized. She is covid positive. currently on isolation with no significant symptoms- no SOB, o2sat>96 on RA, afebrile. We discussed risks, benefits and alternative treatment options, will hold on antidepressants as will worsen psychosis, increase risperidone to 1mg po daily and 2mg po qhs. will add some ativan for catatonic-like symptoms including blank stare, mutism (or minimal spontaneous speech with significant delayed in responses). PLAN 1. admit to s1, cv, 15 minutes checks 2. increase risperidone 1mg po daily and 2mg po qhs. Risperdal was increased to 2 mg p.o. b.i.d. on March 09. March 14 we are increasing up to 2 mg in the morning and 3 at night. On May 6 we are increasing to Risperdal 3 mg p.o. b.i.d. 3. obtain collateral information 4. aftercare planning. 5. Seroquel will increase up to 300 mg p.o. q.h.s. on March 10. 6. Increase trazodone at night for sleep on March 17. On March 18 we are increasing trazodone up to 150 p.o. q.h.s. on April 02 we increase trazodone up to 200 mg p.o. q.h.s. to target insomnia and depression. 7. Invega Sustenna 234mg IM received on 03/19. plan to taper off risperidone. Invega Sustenna 156 mg IM on 03/25. 8. Discontinue Risperdal p.o. on March 22. 9. Basic metabolic panel, lipid profile and hemoglobin A1c for next Friday. 10. Start on SSRIs , on a low dose of Zoloft 25 p.o. daily, we are increasing up to 50 mg p.o. daily on April 01. 04/03: continue current management and treatment plan. 04/04: Add Seroquel 25 mg PRN hallucinations. Otherwise continue current management and treatment plan. 04/05: continue current management and treatment plan. Reason for continued inpatient stay Substantial Risk for: inability to function and rapid decompensation Time Spent With Patient Time: Total time managing care of this patient today ____ minutes.
[2024-04-05 20:00] VITALS: BP 142/77; PULSE 85; RESP 17; TEMP 36.1; O2SAT 96
[2024-04-05] MEDS: traZODone HCL 100 MG TABLET 200 MG PO (21:05)
[2024-04-05] MEDS: Mirabegron 50 MG TAB.ER.24H PO (21:06)
[2024-04-05] MEDS: QUEtiapine Fumarate 300 MG TABLET PO (21:06)
[2024-04-06] MEDS: Omeprazole 20 MG CAPSULE.DR PO (06:28)
[2024-04-06] MEDS: Levothyroxine Sodium 88 MCG TABLET PO (06:28)
[2024-04-06 07:59] VITALS: BP 142/72; PULSE 86; RESP 16; TEMP 36.5; O2SAT 94
--- NOTE | 2024-04-06 08:02 | P.DS_ITS ---
DS: Providers Provider Date of Service: 04/06/24 Date of admission: 03/05/24 21:32 Date of discharge: 04/06/24 Primary care physician: Unknown Physician Consults: 03/05/24 22:11 Consult to Hospitalist Routine Comment: Consulting Provider: Hospitalist Reason For Exam: medical H&P DS: Diagnosis Discharge Diagnosis (1) Schizoaffective disorder: Status: Acute DS: Medications Discharge Medications Home Medications: Home Medications ?Medication ?Instructions ?Recorded ?Confirmed acetaminophen 650 mg 650 mg PO Q6H PRN pain 03/06/24 03/06/24 tablet,extended release albuterol sulfate 90 mcg/actuation 2 puff inhalation QID PRN wheezing 03/06/24 03/06/24 aerosol inhaler aspirin 325 mg tablet,delayed 325 mg PO BID 03/06/24 03/06/24 release atorvastatin 80 mg tablet 80 mg PO DAILY 03/06/24 03/06/24 bupropion HCl 200 mg tablet,12 hr 200 mg PO QAM 03/06/24 03/06/24 sustained-release fluoxetine 20 mg capsule 20 mg PO DAILY 03/06/24 03/06/24 furosemide 20 mg tablet 20 mg PO DAILY 03/06/24 03/06/24 levothyroxine 88 mcg tablet 88 mcg PO DAILY 03/06/24 03/06/24 lidocaine 5 % topical patch topical 1XD 03/06/24 lisinopril 5 mg tablet 5 mg PO DAILY 03/06/24 03/06/24 metformin 750 mg tablet,extended 1,500 mg PO DAILY 03/06/24 03/06/24 release 24 hr mirabegron 50 mg tablet,extended 50 mg PO DAILY 03/06/24 03/06/24 release 24 hr (Myrbetriq) pantoprazole 40 mg tablet,delayed 40 mg PO DAILY 03/06/24 03/06/24 release polyethylene glycol 3350 17 17 g PO DAILY PRN constipation 03/06/24 03/06/24 gram/dose oral powder quetiapine 300 mg tablet 300 mg PO BEDTIME 03/06/24 03/06/24 risperidone 2 mg tablet 2 mg PO BEDTIME 03/06/24 03/06/24 Mental Status Exam Mental Status Exam Patient Appearance: Appropriate Patient Orientation: Person and Situation Level of Consciousness: Awake and Appropriate Patient Behavior: Guarded and Passive Mood Description: Withdrawn Affect Description: Constricted Patient Cognition Impaired: Yes Ability to Follow Directions: Good Speech Pattern: Clear Hallucinations: None Delusions: Ideas of Reference Thought Process: Distracted and Slowed Thinking Thought Content: positive for [place] and positive for Circumstantial Judgement: Fair DS: Summary Hospital Course Hospital Course: The patient is a 68-year-old [place]ese female with a past history of schizoaffective disorder bipolar type who was admitted into this facility after she showed symptoms of psychosis. The patient was recently discharged from another facility with a similar presentation and apparently she had been on compliant with treatment. Please see the HPI of the admission note for further details. On admission, we review her list of medications and she had been on Seroquel for several years at night. It had been started on Risperdal a low dose but it has been titrated up to 6 mg a day with some improvement. Since the main problem was compliance we discussed risks, benefits, side-effects and alternatives and the family and the patient agreed on Invega Sustenna. She receive her loading d ose with no side effects. The patient improved slowly, her auditory hallucinations lowered and her paranoia improved. She was able to participate in groups and she looked much better. Even though she has some dysphoric symptoms and we started on Zoloft titrated up to 50 mg p.o. daily to target dysphoria. The occupational therapist did an Florentino test and it was mild cognitive impairment. At this moment we did not started any anti cholinesterase assess since the patient still on a titration of Invega Sustenna. Since there were no safety concerns and the patient was progressing to go back to her baseline discharge planning was discussed. We coordinate aftercare for safe discharge. Please see the discharge planning from the director social. Time spent discussing smoking cessation with patient: 3 to 10 minutes Status at Discharge Cognitive/behavioral status at discharge: Impaired at baseline Functional status at discharge: independent ambulation Overall status at discharge: patient is progressing back to baseline Time Spent with Patient Time attestation: Total time managing care of this patient today _30___ minutes. Time spent: Less than 30 minutes Discharge Plan Discharge Anticipated Discharge Date/Time: 04/06/24 11:00 Patient Disposition: Home, Self-Care Discharge Diagnosis: Schizoaffective disorder Mild cognitive impairment Referrals: Psychiatrist:Dr. Rosanna Alegria ([facility]) [Other] - 04/12/24 11:20 am (Appointment is in person, at the office ) Behavioral Health [facility]er: Vianca Pugh ([facility]) [Other] - 1 Week (If you need help with obtaining additional services or support, please call Vianca at the above number and enter Ext. [phone]. Vianca is your behavioral health rn case management through your insurance.) [facility] Application:Chrissie Haddad ([place]) [Other] - 1 Week (Follow up with Chrissie regarding moving forward with application for [facility] services; [facility] has to schedule you for a needs and means assessment. Chrissie can also be reached on her work call at [phone]) Physician,Donato Harvey [Primary Care Provider] - 04/15/24 12:00 pm (Your follow up appointment has been scheduled with Dr. Hall on 04/15/24 at 12:00pm T: [phone] F: [phone]) Discharge Medications: New acetaminophen 325 mg Tablet 650 mg PO Q6H PRN (Reason: Headache/Pain Mild Scale (1-3)) 30 Days Qty: 60 0RF aspirin 325 mg Tablet,Delayed Release (Dr/Ec) 325 mg PO BID 30 Days Qty: 60 0RF trazodone 100 mg Tablet 200 mg PO BEDTIME 30 Days Qty: 60 0RF hydroxyzine HCl 25 mg Tablet 25 mg PO Q6H PRN (Reason: Anxiety) 30 Days Qty: 60 0RF sertraline 50 mg Tablet 50 mg PO DAILY 30 Days Qty: 30 0RF Invega Sustenna 234 mg/1.5 mL Syringe 234 mg IM Q30D 30 Days Qty: 1.5 0RF Rx Instructions: next dose 04/19 To be administered by RPE Continued atorvastatin 80 mg tablet 80 mg PO DAILY 30 Days Qty: 30 0RF quetiapine 300 mg tablet 300 mg PO BEDTIME 30 Days Qty: 30 0RF levothyroxine 88 mcg tablet 88 mcg PO DAILY 30 Days Qty: 30 0RF pantoprazole 40 mg tablet,delayed release (DR/EC) 40 mg PO DAILY 30 Days Qty: 30 0RF lisinopril 5 mg tablet 5 mg PO DAILY 30 Days Qty: 30 0RF furosemide 20 mg tablet 20 mg PO DAILY 30 Days Qty: 30 0RF albuterol sulfate 90 mcg/actuation HFA aerosol inhaler 2 puff INHALATION QID PRN (Reason: wheezing) 30 Days Qty: 1 0RF Myrbetriq 50 mg tablet extended release 24 hr 50 mg PO DAILY 30 Days Qty: 30 0RF Changed lidocaine 5 % Adhesive Patch,Medicated 1 patch topical 1XD 30 Days Qty: 30 0RF Discontinued acetaminophen 650 mg tablet extended release 650 mg PO Q6H PRN (Reason: pain) aspirin 325 mg tablet,delayed release (DR/EC) 325 mg PO BID bupropion HCl 200 mg tablet sustained-release 12 hr 200 mg PO QAM fluoxetine 20 mg capsule 20 mg PO DAILY metformin 750 mg tablet extended release 24 hr 1,500 mg PO DAILY risperidone 2 mg tablet 2 mg PO BEDTIME polyethylene glycol 3350 17 gram/dose powder 17 g PO DAILY PRN (Reason: constipation) Discharge Orders: Discharge Order (Routine); Ordered 04/06/24 Ordered By: Segundo Fairbanks Diet: Advance to usual diet Activity on Discharge: As tolerated Stand Alone Forms: Patient Portal Discharge page Print Language: Polish Care Plan Goals: Care plan goals achieved in this admission Health Concerns: Continue treatment with primary care physician Plan of Treatment: Continue psychiatric treatment with outpatient providers. Assessment: Elderly [place]ese female with a past history of schizoaffective disorder who was admitted for exacerbation of psychosis, recently discharged from another facility. We change Risperdal to Invega Sustenna with for improvement of her symptoms. At this moment ready to be discharged to the community. No safety concerns.
[2024-04-06 08:22] VITALS: BP 142/72
[2024-04-06] MEDS: Sertraline HCL 50 MG TABLET PO (08:22)
[2024-04-06] MEDS: lisinopriL 5 MG TABLET PO (08:22)
[2024-04-06] MEDS: Aspirin Enteric Coated 325 MG TABLET.DR PO (08:22)
[2024-04-06] MEDS: Atorvastatin Calcium 80 MG TABLET PO (08:22)
[2024-04-06] MEDS: Furosemide 20 MG TABLET PO (08:22)
--- NOTE | 2024-04-06 11:41 | PC.NURSE ---
Patient alert and oriented. Expresses readiness for discharge. Instructions reviewed with patient and brother . Understanding verbalized by both. Prescriptions faxed to [facility]. [facility]ba Chamberlain scrip sent to [facility] . Patient follow up appointments in place. Discharge information sent to PCP. Patient denies pain, SI/HI/AVH.
== END 2024-04-06 11:30 | disposition home or self-care (01) | DRG 885 ==
PROVIDERS: Social Worker; Admitting Provider Psychiatry & Neurology Psychiatry; Visit Provider Psychiatry & Neurology Psychiatry
DX: F25.0 Schizoaffective disorder, bipolar type (principal); U07.1 COVID-19; F43.10 Post-traumatic stress disorder, unspecified; Z91.148 Patient's other noncompliance with medication regimen for other reason; Z79.82 Long term (current) use of aspirin; Z79.890 Hormone replacement therapy; Z79.899 Other long term (current) drug therapy
CPT/HCPCS: 36415; 80048; 80053; 80061; 82607; 82746; 82947; 83036; 83735; 84443; 87635; J2426

== ENCOUNTER → 2024-03-05 21:32 | Outpatient (BNV) | payer OTHER, SELFPAY | PROVIDERS: Admitting Provider Psychiatry & Neurology Psychiatry; Visit Provider Physician Assistant | DX: Z02.2 Encounter for examination for admission to residential institution (principal) | CPT/HCPCS: 99429 ==

== ENCOUNTER → 2024-03-05 21:32 | Outpatient (BNV) | payer OTHER, SELFPAY | PROVIDERS: Admitting Provider Psychiatry & Neurology Psychiatry; Visit Provider Psychiatry & Neurology Psychiatry | DX: F25.0 Schizoaffective disorder, bipolar type (principal) | CPT/HCPCS: 99231 ==

== ENCOUNTER → 2024-03-05 21:32 | Outpatient (BNV) | payer OTHER, SELFPAY | PROVIDERS: Admitting Provider Psychiatry & Neurology Psychiatry; Visit Provider Social Worker | DX: F25.0 Schizoaffective disorder, bipolar type (principal) | CPT/HCPCS: 90792; 99231; 99232; 99238 ==